=== PATIENT | female | born 1965 | race Caucasian/White ===

== ENCOUNTER 2018-10-15 10:34 | Inpatient (IN) ==
[2018-10-15] MEDS ORDERED: *HR* HYDROmorphone (PF) 1 MG/ML SYRINGE IVP ONE ×2 (10:49→11:58)
[2018-10-15 11:03] LABS: Basophils % 0.2 %; Hematocrit 28.5 % (35.3-44.9); Hemoglobin 9.3 g/dL (11.5-15.4); Immature Granulocytes % 1.9 % (0-4); Lymphocytes # 0.7 K/mcL (0.6-4.6); Lymphocytes % 5.1 %; Mean Corpuscular HGB Conc 32.6 g/dL (31.6-35.5); Mean Corpuscular Hemoglobin 33.1 pg (28.0-33.3); Mean Corpuscular Volume 101.4 fL (83.0-100.0); Monocytes % 6.6 %; Neutrophils # 12.4 K/mcL (1.6-8.9); Platelet Count 307 K/mcL (140-400); Red Blood Count 2.81 M/mcL (3.82-4.97); Red Cell Distribution Width 18.2 % (11.5-14.5); Segmented Neutrophils % 86.2 %
[2018-10-15] MEDS ORDERED: 0.9 % Sodium Chloride 1,000 ML IVC ONE (11:11)
[2018-10-15] MEDS ORDERED: 0.9 % Sodium Chloride 1,000 ML ONE (11:11)
--- NOTE | 2018-10-15 11:11 | Emergency Department Note ---
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 She last had chemo 2 weeks ago. She has not had any increased shortness of breath, abdominal pain, N/V/D but states her legs, pelvis, chest and arms have had increased pain. She denies fevers at home. She has not fallen or had any other trauma. She is currently undergoing chemotherapy without radiation and her last treatment was 12 days ago. She has been taking her home oxycodone without relief from the pain. She also relates that she has been having increased difficulty swallowing, with a globus sensation. Pain Scale: 10 - Related Data Home Medications Medication Instructions Recorded Confirmed Loratadine [Claritin] 10 mg PO DAILY 10/25/15 10/10/18 Acetaminophen [Tylenol] 1,000 mg PO Q6H PRN 07/21/18 10/10/18 Albuterol Neb [AccuNeb] 0.63 mg IH BID 07/21/18 10/10/18 Albuterol Sulfate [Proair Hfa] 2 puff IH Q4H PRN 07/21/18 10/10/18 Allopurinol [Zyloprim 300 MG] 300 mg PO DAILY 07/21/18 10/10/18 Cyclobenzaprine [Flexeril] 10 mg PO DAILY 07/21/18 10/10/18 Prochlorperazine Maleate 10 mg PO Q6H PRN 07/21/18 10/10/18 raNITIdine HCl [Zantac] 150 mg PO BID 07/21/18 10/10/18 Amitriptyline [Elavil] 10 mg PO HS 08/30/18 10/10/18 Gabapentin [Neurontin] 600 mg PO TID 08/30/18 10/10/18 Docusate Sodium [Dok] 100 mg PO DAILY 10/02/18 10/10/18 Guaifenesin [Mucinex] 600 mg PO BID 10/02/18 10/10/18 Omeprazole [PriLOSEC] 20 mg PO DAILY 10/02/18 10/10/18 Ondansetron HCl [Zofran] 4 mg PO Q6H PRN 10/02/18 10/10/18 Oxycodone HCl 15 mg PO TID 10/02/18 10/10/18 Primidone [Mysoline] 50 mg PO BID 10/02/18 10/10/18 Previous Rx's Medication Instructions Recorded Lidocaine/Prilocaine [Emla] 1 appl TP AD #30 gm 08/15/18 Magic Mouthwash [Magic Mouthwash 10 ml PO QID PRN #240 ml 09/25/18 BLM] Doxycycline 100 mg PO BID #10 capsule 10/03/18 Dronabinol [Marinol] 1 tab PO BID 30 Days #60 capsule 10/10/18 Allergies Allergy/AdvReac Type Severity Reaction Status Date / Time diphenhydramine Allergy Insomnia Verified 10/10/18 10:30 [From Benadryl] Penicillins Allergy Anaphylaxis Verified 10/10/18 10:30 atenolol AdvReac Cough Verified 10/10/18 10:30 bupropion [From Wellbutrin] AdvReac Nightmare Verified 10/10/18 10:30 cephalexin [From Keflex] AdvReac Diarrhea Verified 10/10/18 10:30 metronidazole [From Flagyl] AdvReac Diarrhea Verified 10/10/18 10:30 All systems ED: reviewed and negative except as stated. Review of Systems: As Per HPI Constitutional: Reports: chills, weakness. Denies: fever Eyes: Denies: vision change Cardiovascular: Reports: chest pain. Denies: palpitations, dyspnea on exertion, edema Respiratory: Denies: cough, dyspnea, wheezes Gastrointestinal: Denies: abdominal pain, nausea, vomiting, diarrhea, constipation Genitourinary: Denies: dysuria, hematuria Musculoskeletal: Reports: back pain, neck pain, arthralgia. Denies: joint swelling Integumentary: Denies: rash Neurological: Reports: headache, weakness. 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 Absent: scleral icterus, conjunctival injection - ENT ENT exam: mucous membranes dry - Neck Neck exam: Absent: tenderness, meningismus, lymphadenopathy - Chest Chest inspection: Present: normal inspection, symmetric chest wall rise. Absent: tenderness, rash - Respiratory Respiratory exam: Present: normal lung sounds bilaterally. Absent: wheezes, stridor - Cardiovascular Cardiovascular exam: Present: normal rhythm, tachycardia - Abdominal Exam Abdominal exam: Present: soft, Non-Tender. Absent: distention, guarding, rebound, rigidity - Extremities Exam Extremities exam: Present: normal inspection. Absent: pedal edema, joint swelling, calf tenderness - Neurological Exam Neurological exam: Present: alert, oriented X3 - Psychiatric Psychiatric exam: Present: flat affect - Skin Skin exam: Present: warm, dry, intact Course Vital Signs Temperature 100.0 F H 10/15/18 10:40 Pulse Rate 137 10/15/18 10:40 Respiratory Rate 10/15/18 10:40 Blood Pressure 106/81 10/15/18 10:40 O2 Sat by Pulse Oximetry 96 10/15/18 10:40 Temperature 100.7 F H 10/15/18 11:20 Pulse Rate 133 10/15/18 11:20 Respiratory Rate 10/15/18 10:40 Blood Pressure 106/81 10/15/18 10:40 O2 Sat by Pulse Oximetry 96 10/15/18 10:40 Oxygen Delivery Oxygen Delivery Room Air Medical Decision Making - [facility] Narrative Medical decision making narrative: This patient is a cancer patient with recent chemotherapy presenting with increased pain. We will pursue a septic workup and obtain an EKG, and give the patient a bolus of fluids and 1mg of Dilaudid. On review of past medical records she was admitted on Oct 02 for dehydration and pain secondary to chemo and had CT scans done at that time with improvement of liver and bone mets. She had some vocal cord thickening and thickening of the aryepiglottic folds seen on these scans as well and was complaining of difficulty swallowing at that time as well. 1320 - Pt has been given a liter of fluid and 2mg of Dilaudid for pain relief. Lab work and CXR are unremarkable. Pt admitted to hospitalist Dr. Owen for pain management and swallow evaluation. - Medical Records Medical records reviewed: Yes I reviewed the patient's medical records. - Lab Data Lab results reviewed: Yes I reviewed the patient's lab results. Result diagrams: 10/15/18 10:42 10/15/18 10:42 Lab Results 10/15/18 10/15/18 10/15/18 Range/Units 10:42 10:42 10:42 WBC 14.4 H D (4.3-11.1) K/mcL RBC 2.81 L (3.82-4.97) M/mcL Hgb 9.3 L (11.5-15.4) g/dL Hct 28.5 L (35.3-44.9) % MCV 101.4 H (83.0-100.0) fL MCH 33.1 (28.0-33.3) pg MCHC 32.6 (31.6-35.5) g/dL RDW 18.2 H (11.5-14.5) % Plt Count 307 (140-400) K/mcL MPV 9.0 L (9.4-12.4) fL Immature Gran % 1.9 (0-4) % Seg Neutrophils % 86.2 % Lymphocytes % 5.1 % Monocytes % 6.6 % Eosinophils % 0.0 % Basophils % 0.2 % Neutrophils # 12.4 H (1.6-8.9) K/mcL Lymphocytes # 0.7 (0.6-4.6) K/mcL Monocytes # 1.0 (0.0-1.3) K/mcL Eosinophils # 0.0 (0.0-0.6) K/mcL Basophils # 0.0 (0.0-0.2) K/mcL PT 13.2 H (9.4-12.1) Seconds INR 1.2 APTT 61.3 H (26.0-36.0) Seconds Sodium 132 L (136-145) mEq/L Potassium 4.0 (3.5-5.1) mEq/L Chloride 96 L (98-107) mEq/L Carbon Dioxide 27 (23-29) mEq/L BUN 11 (6-20) mg/dL Creatinine 0.41 L (0.60-1.20) mg/dL Est GFR ( Amer) > 60 (> 60) Est GFR (Non-Af Amer) > 60 (> 60) BUN/Creatinine Ratio 27 H (6-26) Glucose 129 H (70-105) mg/dL Calculated Osmolality 275 L (280-300) Lactic Acid (0.5-2.2) mmol/L Calcium 9.1 (8.6-10.3) mg/dL Phosphorus 2.5 L (2.7-4.5) mg/dL Magnesium 2.0 (1.6-2.6) mg/dL Total Bilirubin 0.4 (0.3-1.0) mg/dL Direct Bilirubin 0.1 (0.0-0.2) mg/dL Indirect Bilirubin 0.3 (0.0-1.2) mg/dL AST 24 (13-39) Units/L ALT 14 (7-52) Units/L Alkaline Phosphatase 196 H (34-104) Units/L Serum Total Protein 7.1 (6.4-8.9) g/dL Albumin 3.7 (3.5-5.7) g/dL Globulin 3.4 (2.4-3.5) g/dL Albumin/Globulin Ratio 1.1 (1.1-2.2) Urine Color (Yellow) Urine Clarity (Clear) Urine pH (5.0-8.0) pH Units Ur Specific [place] (1.010-1.025) Urine Protein (Neg-Trace) mg/dL Urine Glucose (UA) (Normal) mg/dL Urine Ketones (Negative) mg/dL Urine Blood (Negative) Urine Nitrite (Negative) Urine Bilirubin (Negative) Urine Urobilinogen (Normal) mg/dL Ur Leukocyte Esterase (Negative) Urine Microscopic RBC (0-3) per hpf Urine Microscopic WBC (0-3) per hpf Ur Squamous Epith Cells (None-Few) per lpf Urine Bacteria (None-Few) per hpf Hyaline Casts (None-Few) per lpf Ur Culture Indicated? (NO) 10/15/18 10/15/18 Range/Units 11:04 11:15 WBC (4.3-11.1) K/mcL RBC (3.82-4.97) M/mcL Hgb (11.5-15.4) g/dL Hct (35.3-44.9) % MCV (83.0-100.0) fL MCH (28.0-33.3) pg MCHC (31.6-35.5) g/dL RDW (11.5-14.5) % Plt Count (140-400) K/mcL MPV (9.4-12.4) fL Immature Gran % (0-4) % Seg Neutrophils % % Lymphocytes % % Monocytes % % Eosinophils % % Basophils % % Neutrophils # (1.6-8.9) K/mcL Lymphocytes # (0.6-4.6) K/mcL Monocytes # (0.0-1.3) K/mcL Eosinophils # (0.0-0.6) K/mcL Basophils # (0.0-0.2) K/mcL PT (9.4-12.1) Seconds INR APTT (26.0-36.0) Seconds Sodium (136-145) mEq/L Potassium (3.5-5.1) mEq/L Chloride (98-107) mEq/L Carbon Dioxide (23-29) mEq/L BUN (6-20) mg/dL Creatinine (0.60-1.20) mg/dL Est GFR ( Amer) (> 60) Est GFR (Non-Af Amer) (> 60) BUN/Creatinine Ratio (6-26) Glucose (70-105) mg/dL Calculated Osmolality (280-300) Lactic Acid 2.4 H (0.5-2.2) mmol/L Calcium (8.6-10.3) mg/dL Phosphorus (2.7-4.5) mg/dL Magnesium (1.6-2.6) mg/dL Total Bilirubin (0.3-1.0) mg/dL Direct Bilirubin (0.0-0.2) mg/dL Indirect Bilirubin (0.0-1.2) mg/dL AST (13-39) Units/L ALT (7-52) Units/L Alkaline Phosphatase (34-104) Units/L Serum Total Protein (6.4-8.9) g/dL Albumin (3.5-5.7) g/dL Globulin (2.4-3.5) g/dL Albumin/Globulin Ratio (1.1-2.2) Urine Color Dark Yellow (Yellow) Urine Clarity Cloudy A (Clear) Urine pH 6.5 (5.0-8.0) pH Units Ur Specific [place] 1.023 (1.010-1.025) Urine Protein 30 H (Neg-Trace) mg/dL Urine Glucose (UA) Normal (Normal) mg/dL Urine Ketones Negative (Negative) mg/dL Urine Blood Negative (Negative) Urine Nitrite Negative (Negative) Urine Bilirubin Small H (Negative) Urine Urobilinogen Normal (Normal) mg/dL Ur Leukocyte Esterase Negative (Negative) Urine Microscopic RBC 0-3 (0-3) per hpf Urine Microscopic WBC 5-15 H (0-3) per hpf Ur Squamous Epith Cells Many H (None-Few) per lpf Urine Bacteria Many H (None-Few) per hpf Hyaline Casts Few (None-Few) per lpf Ur Culture Indicated? NO (NO) - Radiology Data Radiology results reviewed: Yes I reviewed the patient's radiology results. - EKG Data EKG #1 EKG attestation: Yes I reviewed and interpreted this EKG. EKG results narrative: EKG obtained at 10:45 on 10/15/2018 Heart rate 138 bpm, AR interval 125, QRS duration 79, QT 339, QTC 514 Sinus tachycardia without any ST segment elevations or depressions. No signs of acute ischemia or arrhythmias. Unchanged from previous EKG dated 10/02/2018.
[2018-10-15 11:15] LABS: INR 1.2; Prothrombin Time 13.2 Seconds (9.4-12.1)
[2018-10-15 11:18] LABS: Activated Partial Thrombo Time 61.3 Seconds (26.0-36.0)
--- NOTE | 2018-10-15 11:21 | Emergency Department Note ---
Disposition Clinical Impression: Sepsis Qualifiers: Sepsis type: sepsis due to unspecified organism Qualified Code(s): A41.9 - Sepsis, unspecified organism Disposition: Admitted As Inpatient Forms: ED Satisfaction Letter General Adult HPI - General Chief complaint: ED Weakness Stated complaint: weakness Time Seen by Provider: 10/15/18 10:36 Source: patient, EMS Limitations: no limitations Nursing Notes Reviewed: Yes Vital Signs Reviewed: Yes - History of Present Illness HPI Narrative: Attestation note: Patient was seen with the emergency medicine resident/nurse prac titioner/physician medical assistant float/transitional resident/medical student: Dr. EVELIN DAHL I have personally performed a face to face evaluation on this patient. I have reviewed and agree with history and physical examination patient management and disposition. Briefly the salient points of the case are as follows: 53-year-old female 5 months ago diagnosed with lung cell carcinoma with metastases to the bones and liver over the past week increasingly more bone pain that is not ameliorated by her her normal pain medication dosage home. No recent trauma. She had some night sweats and felt weak but no shortness shortness breath or chest pain. Sheis a low-grade fever 100.0 tachycardic at 134 she looks weak and dry. Patient will be worked up for sepsis with IV fluids and pain management ant icipated disposition is admission. Providing 45 minutes critical care service this patient. Disposition pending Pain Scale: 10 - Related Data Home Medications Medication Instructions Recorded Confirmed Loratadine [Claritin] 10 mg PO DAILY 10/25/15 10/10/18 Acetaminophen [Tylenol] 1,000 mg PO Q6H PRN 07/21/18 10/10/18 Albuterol Neb [AccuNeb] 0.63 mg IH BID 07/21/18 10/10/18 Albuterol Sulfate [Proair Hfa] 2 puff IH Q4H PRN 07/21/18 10/10/18 Allopurinol [Zyloprim 300 MG] 300 mg PO DAILY 07/21/18 10/10/18 Cyclobenzaprine [Flexeril] 10 mg PO DAILY 07/21/18 10/10/18 Prochlorperazine Maleate 10 mg PO Q6H PRN 07/21/18 10/10/18 raNITIdine HCl [Zantac] 150 mg PO BID 07/21/18 10/10/18 Amitriptyline [Elavil] 10 mg PO HS 08/30/18 10/10/18 Gabapentin [Neurontin] 600 mg PO TID 08/30/18 10/10/18 Docusate Sodium [Dok] 100 mg PO DAILY 10/02/18 10/10/18 Guaifenesin [Mucinex] 600 mg PO BID 10/02/18 10/10/18 Omeprazole [PriLOSEC] 20 mg PO DAILY 10/02/18 10/10/18 Ondansetron HCl [Zofran] 4 mg PO Q6H PRN 10/02/18 10/10/18 Oxycodone HCl 15 mg PO TID 10/02/18 10/10/18 Primidone [Mysoline] 50 mg PO BID 10/02/18 10/10/18 Previous Rx's Medication Instructions Recorded Lidocaine/Prilocaine [Emla] 1 appl TP AD #30 gm 08/15/18 Magic Mouthwash [Magic Mouthwash 10 ml PO QID PRN #240 ml 09/25/18 BLM] Doxycycline 100 mg PO BID #10 capsule 10/03/18 Dronabinol [Marinol] 1 tab PO BID 30 Days #60 capsule 10/10/18 Allergies Allergy/AdvReac Type Severity Reaction Status Date / Time diphenhydramine Allergy Insomnia Verified 10/10/18 10:30 [From Benadryl] Penicillins Allergy Anaphylaxis Verified 10/10/18 10:30 atenolol AdvReac Cough Verified 10/10/18 10:30 bupropion [From Wellbutrin] AdvReac Nightmare Verified 10/10/18 10:30 cephalexin [From Keflex] AdvReac Diarrhea Verified 10/10/18 10:30 metronidazole [From Flagyl] AdvReac Diarrhea Verified 10/10/18 10:30 Past Medical History - Past Medical History Medical history: Reports: cancer, COPD, GERD, hypertension, other Surgical history: Reports: hysterectomy Psychiatric history: Reports: anxiety, depression 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 history - Social History Smoking Status: Current every day smoker Smokeless Tobacco Status: No Alcohol use: Reports: none Drug use: Reports: none Physical Exam - General Limitations: no limitations General appearance: alert Course Vital Signs Temperature 100.0 F H 10/15/18 10:40 Pulse Rate 137 10/15/18 10:40 Respiratory Rate 10/15/18 10:40 Blood Pressure 106/81 10/15/18 10:40 O2 Sat by Pulse Oximetry 10/15/18 10:40 Temperature 100.0 F H 10/15/18 10:40 Pulse Rate 137 10/15/18 10:40 Respiratory Rate 10/15/18 10:40 Blood Pressure 106/81 10/15/18 10:40 O2 Sat by Pulse Oximetry 10/15/18 10:40 Oxygen Delivery Oxygen Delivery Room Air Medical Decision Making - Lab Data Result diagrams: 10/15/18 10:42 Lab Results 10/15/18 Range/Units 10:42 WBC 14.4 H D (4.3-11.1) K/mcL RBC 2.81 L (3.82-4.97) M/mcL Hgb 9.3 L (11.5-15.4) g/dL Hct 28.5 L (35.3-44.9) % MCV 101.4 H (83.0-100.0) fL MCH 33.1 (28.0-33.3) pg MCHC 32.6 (31.6-35.5) g/dL RDW 18.2 H (11.5-14.5) % Plt Count 307 (140-400) K/mcL MPV 9.0 L (9.4-12.4) fL Immature Gran % 1.9 (0-4) % Seg Neutrophils % 86.2 % Lymphocytes % 5.1 % Monocytes % 6.6 % Eosinophils % 0.0 % Basophils % 0.2 % Neutrophils # 12.4 H (1.6-8.9) K/mcL Lymphocytes # 0.7 (0.6-4.6) K/mcL Monocytes # 1.0 (0.0-1.3) K/mcL Eosinophils # 0.0 (0.0-0.6) K/mcL Basophils # 0.0 (0.0-0.2) K/mcL
[2018-10-15 11:25] LABS: Alanine Aminotransferase 14 Units/L (7-52); Albumin 3.7 g/dL (3.5-5.7); Albumin/Globulin Ratio 1.1 (1.1-2.2); Alkaline Phosphatase 196 Units/L (34-104); Aspartate Amino Transferase 24 Units/L (13-39); BUN/Creatinine Ratio 27 (6-26); Bilirubin,Direct 0.1 mg/dL (0.0-0.2); Bilirubin,Indirect 0.3 mg/dL (0.0-1.2); Bilirubin,Total 0.4 mg/dL (0.3-1.0); Blood Urea Nitrogen 11 mg/dL (6-20); Calcium 9.1 mg/dL (8.6-10.3); Carbon Dioxide 27 mEq/L (23-29); Chloride 96 mEq/L (98-107); Globulin 3.4 g/dL (2.4-3.5); Glucose 129 mg/dL (70-105); Osmolality,Calculated 275 (280-300); Phosphorous 2.5 mg/dL (2.7-4.5); Sodium 132 mEq/L (136-145); Total Protein 7.1 g/dL (6.4-8.9); eGFR For Non-African Americans > 60 (> 60)
[2018-10-15 11:34] LABS: Bilirubin,Urine Small (Negative); Blood,Urine Negative (Negative); Clarity,Urine Cloudy (Clear); Color,Urine Dark Yellow (Yellow); Glucose,Urine (UA) Normal (Normal); Ketones,Urine Negative (Negative); Leukocyte Esterase,Urine Negative (Negative); Nitrite,Urine Negative (Negative); PH,Urine 6.5 pH Units (5.0-8.0); Protein,Urine 30 mg/dL (Neg-Trace); Specific Gravity,Urine 1.023 (1.010-1.025); Urobilinogen,Urine Normal (Normal)
[2018-10-15 11:36] LABS: Bacteria,Urine Many per hpf (None-Few); Hyaline Casts,Urine Few per lpf (None-Few); RBC,Urine 0-3 per hpf (0-3); Squamous Epithelial Cell,Urine Many per lpf (None-Few)
[2018-10-15] MEDS ORDERED: Naloxone 0.4 MG/ML INJ IVP PRN (13:57)
[2018-10-15] MEDS ORDERED: Acetaminophen 325 MG TABLET PO PRN (13:57)
[2018-10-15] MEDS ORDERED: Ondansetron 4 MG/2 ML VIAL IVP PRN (14:03)
[2018-10-15] MEDS ORDERED: *HR* HYDROmorphone 2 MG TABLET PO PRN (14:04)
--- NOTE | 2018-10-15 14:12 | Internal Med History&Physical ---
Date of Encounter: 10/15/18 Time of Encounter: 14:10 Internal Medicine - H&P: HPI Admitted From: Home Plans for Post Hospital Care: Home History of present illness: Ms. 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 She last had chemo 2 weeks ago. She has not had any increased shortness of breath, abdominal pain, N/V/D but states her legs, pelvis, chest and arms have had increased pain. She denies fevers at home. She has not fallen or had any other trauma. She is currently undergoing chemotherapy without radiation and her last treatment was 12 days ago. She has been taking her home oxycodone without relief from the pain. She also relates that she has been having increased difficulty swallowing, with a globus sensation. At the ED, she was febrile with temp at 100.7, Labs showed anemia and elevated wbc, and lactic acid. CXR has no acute changes. Due to intractable pain and concern for underlying infection, pt will be admitted for further evaluation and management. Code status discussed with pt and family, they wish full code. Past Med Surg Social Fam HX - Past Medical History Medical history: cancer, COPD, GERD, hypertension, other Additional medical history: Epilepsy Psychiatric history: anxiety, depression - Past Surgical History Surgical History: hysterectomy Additional surgical history: nose reconstruction, tubal ligation - Social History Smoking Status: Current every day smoker Smokeless Tobacco Status: No Alcohol use: none Drug use: none - Family History Mother Living Status: Still Living Hx Family Cardiac Disorders: Yes Hx Family Respiratory Disorders: Yes Hx Family Cancer: Yes (breast) Hx Family Endocrine Disorder: Yes Hx Family Neurologic Disorders: No Father Living Status: Hx Family Cancer: Yes (lung) Internal Medicine - H&P: Meds Loratadine [Claritin] 10 mg PO DAILY 10/25/15 [History] Acetaminophen [Tylenol] 1,000 mg PO Q6H PRN 07/21/18 [History] Albuterol Neb [AccuNeb] 0.63 mg IH BID 07/21/18 [History] Albuterol Sulfate [Proair Hfa] 2 puff IH Q4H PRN 07/21/18 [History] Allopurinol [Zyloprim 300 MG] 300 mg PO DAILY 07/21/18 [History] Cyclobenzaprine [Flexeril] 10 mg PO DAILY 07/21/18 [History] Prochlorperazine Maleate 10 mg PO Q6H PRN 07/21/18 [History] raNITIdine HCl [Zantac] 150 mg PO BID 07/21/18 [History] Lidocaine/Prilocaine [Emla] 1 appl TP AD #30 gm 08/15/18 [Rx] Amitriptyline [Elavil] 10 mg PO HS 08/30/18 [History] Gabapentin [Neurontin] 600 mg PO TID 08/30/18 [History] Magic Mouthwash [Magic Mouthwash BLM] 10 ml PO QID PRN #240 ml 09/25/18 [Rx] Docusate Sodium [Dok] 100 mg PO DAILY 10/02/18 [History] Guaifenesin [Mucinex] 600 mg PO BID 10/02/18 [History] Omeprazole [PriLOSEC] 20 mg PO DAILY 10/02/18 [History] Ondansetron HCl [Zofran] 4 mg PO Q6H PRN 10/02/18 [History] Oxycodone HCl 15 mg PO TID 10/02/18 [History] Primidone [Mysoline] 50 mg PO BID 10/02/18 [History] Doxycycline 100 mg PO BID #10 capsule 10/03/18 [Rx] Dronabinol [Marinol] 1 tab PO BID 30 Days #60 capsule 10/10/18 [Rx] Allergy/AdvReac Type Severity Reaction Status Date / Time diphenhydramine Allergy Insomnia Verified 10/10/18 10:30 [From Benadryl] Penicillins Allergy Anaphylaxis Verified 10/10/18 10:30 atenolol AdvReac Cough Verified 10/10/18 10:30 bupropion [From Wellbutrin] AdvReac Nightmare Verified 10/10/18 10:30 cephalexin [From Keflex] AdvReac Diarrhea Verified 10/10/18 10:30 metronidazole [From Flagyl] AdvReac Diarrhea Verified 10/10/18 10:30 All Systems PM: A 10-system review of systems was performed and is negative for pertinent findings except as documented above in the HPI. Review of systems: REVIEW OF SYSTEMS: CONSTITUTIONAL: see HPI. HEENT: Eyes: No visual loss, blurred vision, double vision or yellow sclerae. Ears, Nose, Throat: No hearing loss, sneezing, congestion, runny nose or sore throat. SKIN: No rash or itching. CARDIOVASCULAR: No chest pain, chest pressure or chest discomfort. No palpitations or edema. RESPIRATORY: No shortness of breath, cough or sputum. GASTROINTESTINAL: positive for anorexia, nausea, vomiting. No abdominal pain or blood, see HPI. GENITOURINARY: No dysuria, urgency, or frequency. NEUROLOGICAL: No headache, dizziness, syncope, paralysis, ataxia, numbness or tingling in the extremities. No change in bowel or bladder control. MUSCULOSKELETAL: see HPI. HEMATOLOGIC: No anemia, bleeding or bruising. LYMPHATICS: No enlarged nodes. No history of splenectomy. PSYCHIATRIC: No history of depression or anxiety. ENDOCRINOLOGIC: No reports of sweating, cold or heat intolerance. No polyuria or polydipsia. - Constitutional Vitals: Temp Pulse Resp BP Pulse Ox 100.7 F H 133 19 106/81 96 10/15/18 11:20 10/15/18 11:20 10/15/18 10:40 10/15/18 10:40 10/15/18 10:40 General appearance: Present: cooperative, A&O X 3, answers questions appropriately Exam: PHYSICAL EXAMINATION: GENERAL APPEARANCE: The patient is alert, oriented and in no acute distress. HEENT: Head is normocephalic. The sinuses are nontender. Pupils are equal and reactive. The nares are patent. Oropharynx clear without lesions. NECK: Supple without lymphadenopathy. HEART: Regular rate and rhythm. LUNGS: No crackles or wheezes are heard. ABDOMEN: Soft, nontender, nondistended with good bowel sounds heard. Inguinal area is normal. EXTREMITIES: Without cyanosis, clubbing or edema. NEUROLOGICAL: Gross nonfocal. SKIN: Warm and dry without any rash. Internal Med - H&P Results - Labs CBC & Chem 7: 10/15/18 10:42 10/15/18 10:42 Labs: Short CBC 10/15/18 Range/Units 10:42 WBC 14.4 H D (4.3-11.1) K/mcL Hgb 9.3 L (11.5-15.4) g/dL Hct 28.5 L (35.3-44.9) % Plt Count 307 (140-400) K/mcL Neutrophils # 12.4 H (1.6-8.9) K/mcL BMP 10/15/18 10:42 Sodium 132 L Potassium 4.0 Chloride 96 L Carbon Dioxide 27 BUN 11 Creatinine 0.41 L Glucose 129 H Calcium 9.1 Liver Function 10/15/18 Range/Units 10:42 Total Bilirubin 0.4 (0.3-1.0) mg/dL Direct Bilirubin 0.1 (0.0-0.2) mg/dL AST 24 (13-39) Units/L ALT 14 (7-52) Units/L Alkaline Phosphatase 196 H (34-104) Units/L Albumin 3.7 (3.5-5.7) g/dL Urine 10/15/18 Range/Units 11:15 Urine Color Dark Yellow (Yellow) Urine Clarity Cloudy A (Clear) Urine pH 6.5 (5.0-8.0) pH Units Ur Specific [place] 1.023 (1.010-1.025) Urine Protein 30 H (Neg-Trace) mg/dL Urine Glucose (UA) Normal (Normal) mg/dL - Impressions ITS Impressions Chest X-Ray 10/15/18 11:21 IMPRESSION: No acute abnormality. D/ / Quincy Howard MD / Quincy Howard MD Interpreting Provider: Quincy Howard MD - Assessment and plan (1) Small cell lung cancer Current Visit: No Status: Acute Assessment and plan: 53 year old female with end stage small cell lung cancer diagnosed about 5 months ago, already undertaken 5 rounds of chemo, presented with intractable pain, weakness, and disphargia. - With known metastasis to bone, cervical lymph nodes, and liver. Prognosis is poor. - Will consult palliative care and oncology. - supportive care and pain control. - PT/OT (2) Fever of unknown origin Current Visit: Yes Status: Acute Assessment and plan: Pt is not neutropenic, but received chemo about 12 days ago. Blood cx send. CXR no pneumonia, Pt hs no GI or symptoms. start braod-spectrum abx. (3) Dysphagia Current Visit: Yes Status: Acute Assessment and plan: With known cervical lymph nodes metastasis, unclear there is esophageal metastasis or not. May need imaging study. Discussed with patient and family about PEG placement but they are debating. Continue IVF, soft diet, aspiration precaution. Qualifiers: Dysphagia type: oropharyngeal phase Qualified Code(s): R13.12 - Dysphagia, oropharyngeal phase (4) Intractable pain Current Visit: Yes Status: Acute Assessment and plan: Started on dilaudid oral. (5) DVT prophylaxis Current Visit: Yes Status: Acute Assessment and plan: Heparin sq. - Time Spent With Patient Total time spent is greater than 50% in coordination of care (as documented) at patient's floor/unit and/or counseling patient: Greater than 35 minutes
[2018-10-15] MEDS ORDERED: NON-FORMULARY MEDICATION 1 EACH EACH (Magic Mouthwash [Magic Mouthwash Blm] 10 ML) PO PRN (14:47)
[2018-10-15] MEDS ORDERED: Magic Mouthwash 10 ML UD Cup PO PRN (14:57)
--- NOTE | 2018-10-15 15:34 | Palliative - Consult Note ---
Date of Encounter: 10/15/18 Time of Encounter: 15:30 - Assessment and Plan (1) Cancer associated pain Current Visit: No Status: Acute Assessment and plan: She was utilizing Oxycodone 15mg at home "several times a day", and patient states she was not getting any relief. She had received IV Hydromorphone in the ED with some relief, and was ordered po Hydromorphone upon arrival to floor every 6 hours PRN. She will likely need the frequency increased. Will alter dose to 2mg mod pain and 4mg for severe pain and allow every 2 hours PRN. Will re-eval in am. She was given Zometa 09/25 at [facility] - patient states that she did not get any relief with this, and actually pain has worsened. Possible decadron may assist in comfort, however, will await oncology evaluation and see if they have other recommendations. (2) Dysphagia Current Visit: Yes Status: Acute Assessment and plan: Speech at bedside - will be ordering MBS for tomorrow. Qualifiers: Dysphagia type: oropharyngeal phase Qualified Code(s): R13.12 - Dysphagia, oropharyngeal phase (3) Goals of care, counseling/discussion Current Visit: No Status: Acute Assessment and plan: Patient very uncomfortable and states she is exhausted from ER experience and desires to rest. Will attempt goals of care discussion at a later date, as she has already had one conversation with the ED physician, and appears exhausted. Also would like to see if oncology has any input that would affect this discussion. She had previously completed POA with her son as primary agent. She may want to alter this document and will be discussing with her sister odalys Patrick at bedside. Will f/u in am. (4) Fever of unknown origin Current Visit: Yes Status: Acute (5) Small cell lung cancer Current Visit: No Status: Acute Palliative-CN HPI - Data of Consult Patient: known to practice within the last 3 years Consult date: 10/15/18 Requesting Physician: Michael Lazcano MD Primary Care Provider: PCP NONE - Consult Narrative Palliative Care/Comfort Measures: Palliative care History of present illness: Ms. Youngblood is a 53 year old female known to the palliative care team from a previous visit, who presented to the hospital with c/o increased pain. She has history of metastatic SCLC and has been under care and treatment with Dr. Mcgee at the [facility], with her last chemo approx 2 weeks ago. States the next steps were to get an MRI of bilateral hips and "go from there". She also has been having increased difficulty with swallowing which she states is getting worse. Her sister odalys bolivar at bedside, states she has been putting things in her mouth and spitting them out because it was getting her choked. Upon evaluation, she was febrile with temp 100.7. WBC 14.4, Hgb 9.3. CXR with no acute change. Palliative care was consulted to assist with symptom management and goals of care discussion. Upon my visit, sister odalys Patrick is at bedside, and speech therapy and lab present in room. Patient states she is exhausted and just wants to rest, but agreeable to speak with me briefly. States that her Oxycodone is no longer working for her pain and she is miserable. She appears dusky, although saturations in 90's on 2L NC. State lives with mother, and no home care services involved. Utilizes no DME's at this time. CC: Michael Lazcano MD - Time Spent with Patient Time: Total time spent is greater than 50% in coordination of care (as documented) at patient's floor/unit and/or counseling patient: Time with patient: 45 minutes Past Med Surg Social Fam HX - Past Medical History Medical history: cancer, COPD, GERD, hypertension, other Additional medical history: Epilepsy Psychiatric history: anxiety, depression - Past Surgical History Surgical History: hysterectomy Additional surgical history: nose reconstruction, tubal ligation - Social History Smoking Status: Current every day smoker Smokeless Tobacco Status: No Alcohol use: none Drug use: none - Family History Mother Living Status: Still Living Hx Family Cardiac Disorders: Yes Hx Family Respiratory Disorders: Yes Hx Family Cancer: Yes (breast) Hx Family Endocrine Disorder: Yes Hx Family Neurologic Disorders: No Father Living Status: Hx Family Cancer: Yes (lung) Medications and Allergies Loratadine [Claritin] 10 mg PO DAILY 10/25/15 [History] Acetaminophen [Tylenol] 1,000 mg PO Q6H PRN 07/21/18 [History] Albuterol Neb [AccuNeb] 0.63 mg IH BID PRN 07/21/18 [History] Albuterol Sulfate [Proair Hfa] 2 puff IH Q4H PRN 07/21/18 [History] Allopurinol [Zyloprim 300 MG] 300 mg PO DAILY 07/21/18 [History] Cyclobenzaprine [Flexeril] 10 mg PO DAILY PRN 07/21/18 [History] Prochlorperazine Maleate 10 mg PO Q6H PRN 07/21/18 [History] raNITIdine HCl [Zantac] 150 mg PO 0730,1630 07/21/18 [History] Amitriptyline [Elavil] 10 mg PO HS 08/30/18 [History] Gabapentin [Neurontin] 600 mg PO TID 08/30/18 [History] Magic Mouthwash [Magic Mouthwash BLM] 10 ml PO QID PRN #240 ml 09/25/18 [Rx] Docusate Sodium [Dok] 100 mg PO DAILY 10/02/18 [History] Guaifenesin [Mucinex] 600 mg PO BID 10/02/18 [History] Omeprazole [PriLOSEC] 20 mg PO DAILY@0730 10/02/18 [History] Ondansetron HCl [Zofran] 4 mg PO Q6H PRN 10/02/18 [History] Oxycodone HCl 15 mg PO TID PRN 10/02/18 [History] Primidone [Mysoline] 50 mg PO BID 10/02/18 [History] Dronabinol [Marinol] 1 tab PO BID 30 Days #60 capsule 10/10/18 [Rx] Carvedilol [Coreg] 25 mg PO BIDWM 10/15/18 [History] Lidocaine/Prilocaine [Emla] 1 appl TP AD PRN 10/15/18 [History] Allergy/AdvReac Type Severity Reaction Status Date / Time Penicillins Allergy Anaphylaxis Verified 10/10/18 10:30 atenolol AdvReac Cough Verified 10/10/18 10:30 bupropion [From Wellbutrin] AdvReac Nightmare Verified 10/10/18 10:30 cephalexin [From Keflex] AdvReac Diarrhea Verified 10/10/18 10:30 diphenhydramine AdvReac Insomnia Verified 10/15/18 14:54 [From Benadryl] metronidazole [From Flagyl] AdvReac Diarrhea Verified 10/10/18 10:30 All systems: reviewed and no additional remarkable complaints except as stated (dysphagia, pain to bilateral shoulders, hips, groins, back, generalized weakness, shortness of breath) Palliative Care-Exam - Constitutional Vitals: Temp Pulse Resp BP Pulse Ox 101.4 F H 129 19 103/69 99 10/15/18 15:06 10/15/18 15:06 10/15/18 15:06 10/15/18 15:06 10/15/18 15:06 General appearance: Present: mild distress - Head Head Exam: Present: normal inspection, normocephalic - ENT Additional comments: Nose/ears with cyanosis - Respiratory Respiratory exam: Present: decreased breath sounds - Cardiovascular Cardiovascular exam: Present: +S1, +S2, tachycardia - GI/Abdominal Exam GI/Abdominal exam: Present: diminished bowel sounds, soft - Extremities Exam Extremities exam: Present: normal capillary refill, normal inspection - Neurological Exam Neurological exam: Present: alert, oriented X3, strengths equal and symetr throughout - Skin Skin exam: Present: dry Additional comments: Cyanosis/dusky appearance noted to ears/nose Internal Medicine - CN: Reslt - Labs CBC & Chem 7: 10/15/18 10:42 10/15/18 10:42 Labs: Short CBC 10/15/18 Range/Units 10:42 WBC 14.4 H D (4.3-11.1) K/mcL Hgb 9.3 L (11.5-15.4) g/dL Hct 28.5 L (35.3-44.9) % Plt Count 307 (140-400) K/mcL Neutrophils # 12.4 H (1.6-8.9) K/mcL BMP 10/15/18 10:42 Sodium 132 L Potassium 4.0 Chloride 96 L Carbon Dioxide 27 BUN 11 Creatinine 0.41 L Glucose 129 H Calcium 9.1 Liver Function 10/15/18 Range/Units 10:42 Total Bilirubin 0.4 (0.3-1.0) mg/dL Direct Bilirubin 0.1 (0.0-0.2) mg/dL AST 24 (13-39) Units/L ALT 14 (7-52) Units/L Alkaline Phosphatase 196 H (34-104) Units/L Albumin 3.7 (3.5-5.7) g/dL Urine 10/15/18 Range/Units 11:15 Urine Color Dark Yellow (Yellow) Urine Clarity Cloudy A (Clear) Urine pH 6.5 (5.0-8.0) pH Units Ur Specific [place] 1.023 (1.010-1.025) Urine Protein 30 H (Neg-Trace) mg/dL Urine Glucose (UA) Normal (Normal) mg/dL - ABG Interpretation ABG results: PT/INR, D-dimer PT 13.2 Seconds (9.4-12.1) H 10/15/18 10:42 - Impressions Impressions Chest X-Ray 10/15/18 11:21 IMPRESSION: No acute abnormality. D/ / Quincy Howard MD / Quincy Howard MD Interpreting Provider: Quincy Howard MD Consult Discharge Plan - Plan Referrals: NONE,PCP [Primary Care Provider] - Palliative Quality Palliative Quality: Screen for Code Status: No (Will eval in am, patient in pain crisis, unable to discuss presently), Screen for Goals of Care: No, Screen for Pain: Yes, If Pain Regimen Started, Initiate Bowel Regimen: Yes, Screen for Nausea/Vomitting: Yes Code Status: 10/15/18 13:57 Resuscitation Status: Active [RES] Routine Comment: Resuscitation Status: Full Code
[2018-10-15] MEDS: Gabapentin 300 MG CAPSULE PO SCH ×2 (15:38→21:04)
[2018-10-15] MEDS: Cefepime HCl 2,000 MG in Water for inj. (sterile) 20 ML 20 ML IVP SCH ×2 (15:39→21:05)
[2018-10-15] MEDS: Levofloxacin 750 MG/150 ML 750 MG/150 ML BAG IVPB SCH (15:40)
[2018-10-15] MEDS: D5% in 0.2% NACL w KCl 1,000 ML IVC SCH (16:13)
[2018-10-15] MEDS ORDERED: Gadolinium Contrast Agent (WT Based) IV PRN (16:45)
--- NOTE | 2018-10-15 16:58 | Oncology Inp Consult Note ---
<Sofi Baldwin - Last Filed: 10/15/18 17:40> Date of Encounter: 10/15/18 Time of Encounter: 16:53 Assessment and Plan (1) Cancer associated pain Status: Acute Assessment and plan: known bony metastases palliative care on board, appreciate recommendations dilaudid dose increased from admission (home oxy 15 mg TID) see what patient is requiring to manage pain for 24 hours and medications can be adjusted consider decadron if pain is not adequately reduced with dilaudid MRI pelvis w/wo contrast ordered (2) Fever Status: Acute Assessment and plan: source unknown peripheral blood culture drawn in ER cefepime and levaquin started check port blood culture check RIP Qualifiers: Fever type: unspecified Qualified Code(s): R50.9 - Fever, unspecified (3) Dysphagia Status: Acute Assessment and plan: speech therapy has assessed patient - okay for diet with no straws and to use double swallow technique with solids modified barium swallow ordered for tomorrow AM Qualifiers: Dysphagia type: oropharyngeal phase Qualified Code(s): R13.12 - Dysphagia, oropharyngeal phase (4) Small cell lung cancer Status: Acute Assessment and plan: Treatment Intent: Palliative Number of cycles: 5-6 Cycle repeated every 3 weeks Carboplatin AUC 5 day 1 (creatinine clearance around 65) Etoposide 60 mg/m IV day 1-3 (increased to 80 mg/m from cycle 2) Atezolizumab 1200 mg IV day 1 (from cycle 2) Neulasta 6 mg subcutaneous day 4. (Decreased to 3 mg subcutaneous from cycle 3 due to bone pain Cycle 1 on 07/23/2018 4 on 09/25/2018. After 4 cycles she was hospitalized with fatigue and dehydration. Improved with conservative measures. She had CT neck and chest abdomen and pelvis with IV contrast and MRI brain in the hospital Overall it showed reduction in the liver lesions and sclerotic bone metastases which may indicate response. Mediastinal adenopathy which is bulky stable compact August 2018 but has shown improvement since July 2018 We will give her at least one more cycle as she has residual disease especially bulky mediastinal adenopathy. After that may consider radiation to the mediastinum We will also send her to radiation oncology to discuss PCI Supportive medication for bone metastasis Re: Bone metastasis could try bisphosphonates. For small cell lung cancer given the aggressive nature adding Zometa may not help much. Zometa 4 mg IV day 1-3 weeks start 09/25/2017 (5) Metastatic cancer Status: Acute - Data of Consult Patient: known to practice within the last 3 years Consult date: 10/15/18 Requesting Physician: Michael Lazcano MD Primary Care Provider: PCP NONE - Consult Narrative Reason for consult: chemo patient/cancer pain History of present illness: 53 yo female currently undergoing palliative chemotherapy for extensive metastatic small cell carcinoma admitted for increased bone pain. She has had increasing pain for the past 5 days that has not been relieved by her home oxycodone 15 mg. She also has difficulty swallowing, which has been going on for several months but is worse when she feels ill. She was noted to be tachycardic with a fever in the ER. Past Med Surg Social Fam HX - Past Medical History Medical history: cancer, COPD, GERD, hypertension, other Additional medical history: Epilepsy Psychiatric history: anxiety, depression - Past Surgical History Surgical History: hysterectomy Additional surgical history: nose reconstruction, tubal ligation - Social History Smoking Status: Current every day smoker Smokeless Tobacco Status: No Alcohol use: none Drug use: none - Family History Father Living Status: Hx Family Cancer: Yes (lung) Mother Living Status: Still Living Hx Family Cardiac Disorders: Yes Hx Family Respiratory Disorders: Yes Hx Family Cancer: Yes (breast) Hx Family Endocrine Disorder: Yes Hx Family Neurologic Disorders: No Medications and Allergies RX: Loratadine [Claritin] 10 mg PO DAILY 10/25/15 [History] RX: Acetaminophen [Tylenol] 1,000 mg PO Q6H PRN 07/21/18 [History] RX: Albuterol Neb [AccuNeb] 0.63 mg IH BID PRN 07/21/18 [History] RX: Albuterol Sulfate [Proair Hfa] 2 puff IH Q4H PRN 07/21/18 [History] RX: Cyclobenzaprine [Flexeril] 10 mg PO DAILY PRN 07/21/18 [History] RX: Prochlorperazine Maleate 10 mg PO Q6H PRN 07/21/18 [History] RX: raNITIdine HCl [Zantac] 150 mg PO 0730,1630 07/21/18 [History] RX: Amitriptyline [Elavil] 10 mg PO HS 08/30/18 [History] RX: Gabapentin [Neurontin] 600 mg PO TID 08/30/18 [History] RX: Magic Mouthwash [Magic Mouthwash BLM] 10 ml PO QID PRN #240 ml 09/25/18 [Rx] RX: Docusate Sodium [Dok] 100 mg PO DAILY 10/02/18 [History] RX: Guaifenesin [Mucinex] 600 mg PO BID 10/02/18 [History] RX: Omeprazole [PriLOSEC] 20 mg PO DAILY@0730 10/02/18 [History] RX: Ondansetron HCl [Zofran] 4 mg PO Q6H PRN 10/02/18 [History] RX: Oxycodone HCl 15 mg PO TID PRN 10/02/18 [History] RX: Primidone [Mysoline] 50 mg PO BID 10/02/18 [History] Dronabinol [Marinol] 1 tab PO BID 30 Days #60 capsule 10/10/18 [Rx] RX: Lidocaine/Prilocaine [Emla] 1 appl TP AD PRN 10/15/18 [History] Allergy/AdvReac Type Severity Reaction Status Date / Time Penicillins Allergy Anaphylaxis Verified 10/10/18 10:30 atenolol AdvReac Cough Verified 10/10/18 10:30 bupropion [From Wellbutrin] AdvReac Nightmare Verified 10/10/18 10:30 cephalexin [From Keflex] AdvReac Diarrhea Verified 10/10/18 10:30 diphenhydramine AdvReac Insomnia Verified 10/15/18 14:54 [From Benadryl] metronidazole [From Flagyl] AdvReac Diarrhea Verified 10/10/18 10:30 Constitutional: Present: fatigue, malaise, weakness Eyes: Absent: change in vision Nose, mouth and throat: Present: dysphagia Cardiovascular: Absent: chest pain Respiratory: Present: cough, dyspnea Gastrointestinal: Present: dysphagia Musculoskeletal: Present: arthralgias, radiating pain into limb Integumentary: Present: change in hair Neurological: Absent: abnormal speech Oncology - Exam - Constitutional Exam: General: alert, no acute distress HEENT: atraumatic, normocephalic, external ears normal, PEERLA EOMI, neck supple, trachea midline Heart: RRR Lungs: CTA Abdomen: soft, nontender Extremities: no edema Vascular: posterior tibial pulses 2/4 and equal Skin: warm, dry, intact Neuro: A&Ox3, no focal deficits Psych: normal affect Consult Discharge Plan - Plan Referrals: NONE,PCP [Primary Care Provider] - Inpatient Charges Provider: Dr. Tawana Mcgee <Sharon Mcgee S - Last Filed: 10/16/18 17:11> Date of Encounter: 10/15/18 - Data of Consult Requesting Physician: Michael Lazcano MD Primary Care Provider: PCP NONE Inpatient Charges Provider: Dr. Tawana Mcgee Consult - Inpatient: [id number] - Attending Attestation I examined this patient and my medical decision-making was reviewed with Sofi Lang. I agree with the documented findings, disposition and treatment plan as described except to the extent set forth below. 1. Extensive stage small cell lung cancer. She completed 4 cycles of carboplatin and etoposide with immunotherapy Atezolizumab from cycle 2. She was hospitalized earlier this month and she had the following workup. She had a MRI brain with and without contrast 10/02/2018 was negative for metastasis. Chronic white matter ischemic changes CT neck and chest and abdomen with IV contrast on 10/02/2018 showed thickening of the left aryepiglottic fold. Asymmetric vocal cards with thickening of right vocal cord small hypodensity. CT chest showed unchanged mediastinal bulky adenopathy compared to August 2018. Significant improvement in the liver metastasis. Also diffuse sclerotic metastasis in the skeleton which may indicate treatment response Her mediastinal bulky adenopathy has improved significantly since start of treatment but she still has persistent lymphadenopathy. So the plan is to give one more chemotherapy cycle and reevaluate and consider consolidative radiation to the thorax. Following that would consider her for PCI 2. She has bony metastasis receiving Zometa 3. She is hospitalized with significant pain in the lower back radiating towards right pelvis and bilateral shoulders. We will evaluate that with MRI of pelvis. If she has significant bone disease may consider palliative radiation to that as well. She is on IV Dilaudid every 2 hours with reasonable pain control 4. Mild anemia hemoglobin 9.3. This is secondary to chemotherapy. B12 folate TSH and iron levels have been normal Palliative care involved
[2018-10-15] MEDS: *HR* HYDROmorphone 2 MG TABLET PO PRN ×4 (17:14→23:55)
[2018-10-15] MEDS: *HR* Heparin 5,000 UNIT/ML VIAL SQ SCH (17:14)
[2018-10-15] MEDS ORDERED: Meropenem 1,000 MG in 0.9 % Sodium Chloride Mini Bag 100 ML IVPB SCH (18:00)
[2018-10-15 18:29] LABS: Adenovirus Not Detected (Not Detect); Bordetella Pertussis Not Detected (Not Detect); Chlamydophila pneumoniae Not Detected (Not Detect); Coronavirus 229E Not Detected (Not Detect); Coronavirus HKU1 Not Detected (Not Detect); Coronavirus NL63 Not Detected (Not Detect); Coronavirus OC43 Not Detected (Not Detect); Human Metapneumovirus Not Detected (Not Detect); Human Rhinovirus/Enterovirus Not Detected (Not Detect); Influenza A Subtype 2009 H1 Not Detected (Not Detect); Influenza A Untypeable Not Detected (Not Detect); Influenza B Not Detected (Not Detect); Mycoplasma pneumoniae Not Detected (Not Detect); Parainfluenza Virus 1 Not Detected (Not Detect); Parainfluenza Virus 2 Not Detected (Not Detect); Parainfluenza Virus 3 Not Detected (Not Detect); Parainfluenza Virus 4 Not Detected (Not Detect); Respiratory Syncytial Virus Not Detected (Not Detect)
[2018-10-15] MEDS ORDERED: *HR* LORazepam 1 MG TABLET PO ONE (18:39)
[2018-10-15] MEDS ORDERED: diazePAM 10 MG/2 ML SYRINGE IVP PRN (19:10)
[2018-10-15] MEDS: Primidone 50 MG TABLET PO SCH (21:05)
[2018-10-16] MEDS: *HR* HYDROmorphone 2 MG TABLET PO PRN ×4 (02:23→11:13)
--- NOTE | 2018-10-16 02:41 | Event Note ---
Date of Encounter: 10/16/18 Time of Encounter: 01:02 Notified by nurse of patient heart elevated in 120-130's. Ordered EKG, sinus tachycardia with similar changes seen on previous EKG. Upon further chart review heart rate has been elevated similarly since admission and discussed with patient family at bedside who states her heart rate has been in 120's-140's last several weeks. Assessed patient at bedside, continues to be oriented but is also very weak, but denies any new chest pain or shortness of breath. Is full code at this time but it is also denying wanting any further cardiac workup at this time. Reviewed patient and EKG's with Dr Rubio, will not initiate any further work up at this time.
[2018-10-16] MEDS: *HR* Heparin 5,000 UNIT/ML VIAL SQ SCH ×2 (05:12→17:32)
[2018-10-16] MEDS: Cefepime HCl 2,000 MG in Water for inj. (sterile) 20 ML 20 ML IVP SCH ×3 (05:12→22:15)
[2018-10-16 05:39] LABS: Basophils % 0.2 %; Eosinophils % 0.1 %; Hematocrit 26.6 % (35.3-44.9); Hemoglobin 8.6 g/dL (11.5-15.4); Immature Granulocytes % 2.5 % (0-4); Lymphocytes # 0.9 K/mcL (0.6-4.6); Lymphocytes % 6.2 %; Mean Corpuscular HGB Conc 32.3 g/dL (31.6-35.5); Mean Corpuscular Hemoglobin 33.3 pg (28.0-33.3); Mean Corpuscular Volume 103.1 fL (83.0-100.0); Mean Platelet Volume 9.2 fL (9.4-12.4); Monocytes # 0.9 K/mcL (0.0-1.3); Monocytes % 6.6 %; Neutrophils # 11.6 K/mcL (1.6-8.9); Platelet Count 302 K/mcL (140-400); Red Blood Count 2.58 M/mcL (3.82-4.97); Red Cell Distribution Width 18.3 % (11.5-14.5); Segmented Neutrophils % 84.4 %
[2018-10-16 05:56] LABS: BUN/Creatinine Ratio 29 (6-26); Blood Urea Nitrogen 10 mg/dL (6-20); Calcium 8.9 mg/dL (8.6-10.3); Carbon Dioxide 25 mEq/L (23-29); Chloride 99 mEq/L (98-107); Glucose 138 mg/dL (70-105); Osmolality,Calculated 275 (280-300); Potassium 4.2 mEq/L (3.5-5.1); Sodium 132 mEq/L (136-145); eGFR For Non-African Americans > 60 (> 60)
[2018-10-16] MEDS: D5% in 0.2% NACL w KCl 1,000 ML IVC SCH ×2 (07:22→22:17)
--- NOTE | 2018-10-16 07:59 | Electrocardiograph Report ---
[facility] Test Date: 2018-10-15 Pat Name: Renita Youngblood Department: [id number] Room: 2A39 Gender: F Tape Editor: : 1965 Requested By: Catarina Prince Order Number: [id number] Reading MD: Cristopher Miles Measurements Intervals Kite Rate: 138 P: 73 GA: 125 QRS: 86 QRSD: 79 T: 256 QT: 339 QTc: 514 Interpretive Statements Sinus tachycardia Atrial premature complex RSR' in V1 or V2, probably normal variant Nonspecific T abnormalities, diffuse leads Prolonged QT interval Baseline wander in lead(s) V1 Electronically Signed On 10-16-2018 7:57:37 EST by Cristopher Miles
[2018-10-16] MEDS: Gabapentin 300 MG CAPSULE PO SCH ×3 (08:34→20:06)
[2018-10-16] MEDS: Primidone 50 MG TABLET PO SCH ×2 (08:34→20:06)
[2018-10-16] MEDS: Loratadine 10 MG TABLET PO SCH (08:35)
[2018-10-16] MEDS: Levofloxacin 750 MG/150 ML 750 MG/150 ML BAG IVPB SCH (08:35)
--- NOTE | 2018-10-16 08:43 | Internal Med Progress Note ---
<HubercaseyTeri lynch - Last Filed: 10/16/18 13:57> Hospitalist Progress Note - Encounter Date of Encounter: 10/16/18 Time of Encounter: 08:35 - Subjective Interval History: Patient seen and examined at bedside. She is lying in bed. She states that she just received pain medication and is currently comfortable. Her appetite has not improved much but she is able to eat some food with her meds. - Exam Vitals: Temp Pulse Resp BP Pulse Ox 99.1 F 129 16 110/68 98 10/16/18 05:49 10/16/18 05:49 10/16/18 07:52 10/16/18 05:49 10/16/18 07:52 Exam: General: alert and oriented, cachectic and ill appearing, mild distress HEENT: NC/AT, PERRLA, EOMI, mucous membranes dry Cardio: tachycardiaw/o MRG, pulses 2+ Respiratory: Diffuse rhonchi and wheezing, audible stridor and wheezing heard Abd: soft, non-tender, no guarding or rigidity, bs present Extremities: non-tender, no edema, pulses 2+ Skin: warm, dry, intact Neuro: alert and oriented, no acute deficits - Assessment and Plan (1) Small cell lung cancer Current Visit: No Status: Acute Assessment and Plan: End stage small cell lung cancer, currently, has had 5 (chemotherapy for palliative measure. Patient has metastases to her bones, cervical lymph nodes and liver with overall poor prognosis. Presented with intractable pain, weakness, dysphasia Oncology and palliative care following. Appreciate their recommendations. Plan: -Fentanyl 25 g, continue hydromorphone for breakthrough pain -Continued discussion for goals of care going forward (2) Metastatic cancer Current Visit: No Status: Acute Assessment and Plan: Per above (3) Tachycardia Current Visit: Yes Status: Acute Assessment and Plan: Pt was tachycardic overnight. Per pt and family at night they did not want to pursue additional workup. HR improved with administration of Corg this morning. Will continue to monitor. (4) Cancer associated pain Current Visit: No Status: Acute Assessment and Plan: Management and recommendations per palliative (5) Dysphagia Current Visit: Yes Status: Acute Assessment and Plan: Patient has increased stridor this morning Speech is following, recommends keeping her NPO and utilizing alternative methods of providing nutrition. Plan: -IV Decadron per palliative -Will need to have care plan discussion with the family for further management (6) Fever Current Visit: Yes Status: Acute Assessment and Plan: Currently afebrile BC pending Plan: -Continue levaquin and cefepime for now DVT Prophylaxis: Heparin SQ - Time Spent with Patient Total time spent is greater than 50% in coordination of care (as documented) at patient's floor/unit and/or counseling patient: Internal Medicine: Result - Labs CBC & Chem 7: 10/16/18 05:00 10/16/18 05:00 Labs: Short CBC 10/15/18 10/16/18 Range/Units 10:42 05:00 WBC 14.4 H D 13.8 H (4.3-11.1) K/mcL Hgb 9.3 L 8.6 L (11.5-15.4) g/dL Hct 28.5 L 26.6 L (35.3-44.9) % Plt Count 307 302 (140-400) K/mcL Neutrophils # 12.4 H 11.6 H (1.6-8.9) K/mcL BMP 10/15/18 10/16/18 10:42 05:00 Sodium 132 L 132 L Potassium 4.0 4.2 Chloride 96 L 99 Carbon Dioxide 27 25 BUN 11 10 Creatinine 0.41 L 0.34 L Glucose 129 H 138 H Calcium 9.1 8.9 Liver Function 10/15/18 Range/Units 10:42 Total Bilirubin 0.4 (0.3-1.0) mg/dL Direct Bilirubin 0.1 (0.0-0.2) mg/dL AST 24 (13-39) Units/L ALT 14 (7-52) Units/L Alkaline Phosphatase 196 H (34-104) Units/L Albumin 3.7 (3.5-5.7) g/dL Urine 10/15/18 Range/Units 11:15 Urine Color Dark Yellow (Yellow) Urine Clarity Cloudy A (Clear) Urine pH 6.5 (5.0-8.0) pH Units Ur Specific [place] 1.023 (1.010-1.025) Urine Protein 30 H (Neg-Trace) mg/dL Urine Glucose (UA) Normal (Normal) mg/dL - ABG Interpretation ABG results: PT/INR, D-dimer PT 13.2 Seconds (9.4-12.1) H 10/15/18 10:42 - Impressions Impressions Chest X-Ray 10/15/18 11:21 IMPRESSION: No acute abnormality. D/ / Quincy Howard MD / Quincy Howard MD Interpreting Provider: Quincy Howard MD Pelvis MRI 10/15/18 16:45 IMPRESSION: 1. Diffuse osseous metastatic disease. No fracture. Lesions throughout the bilateral femoral necks place the patient at increased risk for pathologic fracture. 2. Edema in the soft tissues surrounding the bilateral iliac wings and also within the bilateral proximal adductor muscles. This is nonspecific with the differential including reactive edema from the adjacent osseous metastases versus low-grade muscle strains. No abnormal soft tissue mass. D/ / Sunil Perkins MD / Sunil Perkins MD Interpreting Provider: Sunil Perkins MD Consult Discharge Plan - Plan Referrals: NONE,PCP [Primary Care Provider] - <[place] - Last Filed: 10/16/18 14:33> Hospitalist Progress Note - Encounter Date of Encounter: 10/16/18 Time of Encounter: 10:20 - Exam Vitals: Temp Pulse Resp BP Pulse Ox 98.2 F 96 24 92/61 96 10/16/18 12:22 10/16/18 12:22 10/16/18 12:22 10/16/18 12:22 10/16/18 12:22 - Assessment and Plan (1) Intractable pain Current Visit: Yes Status: Acute (2) Small cell lung cancer Current Visit: No Status: Acute (3) DVT prophylaxis Current Visit: Yes Status: Acute (4) Dysphagia Current Visit: Yes Status: Acute (5) Fever of unknown origin Current Visit: Yes Status: Acute - Time Spent with Patient Total time spent is greater than 50% in coordination of care (as documented) at patient's floor/unit and/or counseling patient: Internal Medicine: Result - Labs CBC & Chem 7: 10/16/18 05:00 10/16/18 05:00 Labs: Short CBC 10/16/18 Range/Units 05:00 WBC 13.8 H (4.3-11.1) K/mcL Hgb 8.6 L (11.5-15.4) g/dL Hct 26.6 L (35.3-44.9) % Plt Count 302 (140-400) K/mcL Neutrophils # 11.6 H (1.6-8.9) K/mcL BMP 10/16/18 05:00 Sodium 132 L Potassium 4.2 Chloride 99 Carbon Dioxide 25 BUN 10 Creatinine 0.34 L Glucose 138 H Calcium 8.9 - ABG Interpretation ABG results: PT/INR, D-dimer PT 13.2 Seconds (9.4-12.1) H 10/15/18 10:42 - Impressions Impressions Pelvis MRI 10/15/18 16:45 IMPRESSION: 1. Diffuse osseous metastatic disease. No fracture. Lesions throughout the bilateral femoral necks place the patient at increased risk for pathologic fracture. 2. Edema in the soft tissues surrounding the bilateral iliac wings and also within the bilateral proximal adductor muscles. This is nonspecific with the differential including reactive edema from the adjacent osseous metastases versus low-grade muscle strains. No abnormal soft tissue mass. D/ / Sunil Perkins MD / Sunil Perkins MD Interpreting Provider: Sunil Perkins MD Videofluoroscopic Swallow 10/16/18 00:01 IMPRESSION: Aspiration with all consistency liquids. Please see separate speech pathology report for full discussion of findings and recommendations. D/ / Dacia Al MD / Dacia Al MD Interpreting Provider: Dacia Al MD Chest CT 10/16/18 12:36 IMPRESSION: 1. Motion artifact on CT soft tissue neck blurs detail. 2. No acute abnormality of the soft tissue structures of the neck; specifically, there is nonvisualization of the nodular lesion described right vocal cord on recent prior study which may simply be blurred by motion. 3. Unchanged malignancy in the chest and bones. 4. Stable marked dilatation of the main pulmonary artery concerning for pulmonary hypertension. 5. Emphysema. 6. Bibasilar subsegmental atelectasis or pneumonitis with associated small volume bilateral pleural effusion. D/ / Herbert Jose / Herbert Jose Interpreting Provider: Herbert Jose Soft Tissue Neck CT 10/16/18 12:36 IMPRESSION: 1. Motion artifact on CT soft tissue neck blurs detail. 2. No acute abnormality of the soft tissue structures of the neck; specifically, there is nonvisualization of the nodular lesion described right vocal cord on recent prior study which may simply be blurred by motion. 3. Unchanged malignancy in the chest and bones. 4. Stable marked dilatation of the main pulmonary artery concerning for pulmonary hypertension. 5. Emphysema. 6. Bibasilar subsegmental atelectasis or pneumonitis with associated small volume bilateral pleural effusion. D/ / Herbert Jose / Herbert Jose Interpreting Provider: Herbert Jose - Attending Attestation I saw evaluated and examined this patient and my medical decision-making was reviewed with the Resident Physician, Teri Benjamin. I agree with the documented findings, disposition and treatment plan as described except to any changes set forth below. We independently had [id number] contact with the patient. Patient is lying down in bed. Does have wheezing and stridor at this time. Reports that her pain is controlled with current pain medication regimen. Denies any fever or chills overnight. Continues to have poor appetite. General: Patient is alert, moderate distress, oriented 3, cachectic ENT: Mucous membranes dry Respiratory: Wheezing and stridor audible. Cardiovascular: Regular rate and rhythm. s1 and s2 normal No clicks, rubs, gallops, or murmurs. No pedal edema Abdomen: Abdomen is soft, nontender. Bowel sounds are present Musculoskeletal: Tenderness present over her hips Skin: warm, dry, intact. Neuro: Alert oriented x 3 normal cranial nerves, no focal deficits Metastatic Small cell lung cancer: Severe cancer related pain. Palliative care on board. Patient receiving hydromorphone orally with improvement in her pain symptoms. Also started on fentanyl patch at this time. Continue supportive care. Palliative care to discuss goals of care with family. Severe protein calorie malnutrition: Due to metastatic small cell lung cancer. Patient started on Marinol. However does have dysphagia. Dysphagia: Due to metastatic small cell lung cancer. Evaluated by speech therapy and recommended to keep nothing by mouth and utilize alternative methods of nutrition. Will discuss with palliative care and family about options at this time. Stridor: Will give intravenous Decadron. Continue bronchodilators. Poor prognosis. High risk for complications. <Teri Benjamin - Last Filed: 10/16/18 13:57> (5) Dysphagia Qualifiers: Dysphagia type: oropharyngeal phase Qualified Code(s): R13.12 - Dysphagia, oropharyngeal phase (6) Fever Qualifiers: Fever type: unspecified Qualified Code(s): R50.9 - Fever, unspecified <Robert Fishman - Last Filed: 10/16/18 14:33> (4) Dysphagia Qualifiers: Dysphagia type: oropharyngeal phase Qualified Code(s): R13.12 - Dysphagia, oropharyngeal phase
[2018-10-16] MEDS ORDERED: Dexamethasone 4 MG/ML VIAL IVP ONE (09:48)
--- NOTE | 2018-10-16 09:55 | Palliative Progress Note ---
Date of Encounter: 10/16/18 Time of Encounter: 09:45 - Assessment and plan (1) Cancer associated pain Current Visit: No Status: Acute Assessment and plan: She has utilized 24mg of Hydromorphone over the past 24 hours equivalent to 96mg Oral Morphine Equivalents. Discussed with her disease and escalating pain, would be beneficial for long acting pain medication and utilize po for breakthrough. With 50% dose reduction for cross tolerance, will begin Fentanyl 25 mcg pain, and titrate as needed. Continue Hydromorphone for breakthrough pain. (2) Dysphagia Current Visit: Yes Status: Acute Assessment and plan: Patient with increased stridor this am. Will begin IV Decadron. Qualifiers: Dysphagia type: oropharyngeal phase Qualified Code(s): R13.12 - Dysphagia, oropharyngeal phase (3) Goals of care, counseling/discussion Current Visit: No Status: Acute Assessment and plan: Patient appears poor - not sure if she will be further candidate for cancer treatment. Sister n to reach out to family to see if they can come in to discuss. Will f/u later today. D/W Dr Fishman. (4) Fever of unknown origin Current Visit: Yes Status: Acute (5) Small cell lung cancer Current Visit: No Status: Acute - Time Spent With Patient Total time spent is greater than 50% in coordination of care (as documented) at patient's floor/unit and/or counseling patient: - Subjective Interval history: Patient with some stridor sounding respirations this am and diaphoretic. She does state pain is better managed. Sister n at bedside. Reports patient has not been able to swallow anything solid. Can get medications down when crushed. MRI bilateral hip results noted. No fracture but widespread osseous disease. - Constitutional Vitals: Abnormal lab results WBC 13.8 K/mcL (4.3-11.1) H 10/16/18 05:00 RBC 2.58 M/mcL (3.82-4.97) L 10/16/18 05:00 Hgb 8.6 g/dL (11.5-15.4) L 10/16/18 05:00 Hct 26.6 % (35.3-44.9) L 10/16/18 05:00 MCV 103.1 fL (83.0-100.0) H 10/16/18 05:00 RDW 18.3 % (11.5-14.5) H 10/16/18 05:00 MPV 9.2 fL (9.4-12.4) L 10/16/18 05:00 Neutrophils # 11.6 K/mcL (1.6-8.9) H 10/16/18 05:00 PT 13.2 Seconds (9.4-12.1) H 10/15/18 10:42 APTT 61.3 Seconds (26.0-36.0) H 10/15/18 10:42 Sodium 132 mEq/L (136-145) L 10/16/18 05:00 Creatinine 0.34 mg/dL (0.60-1.20) L 10/16/18 05:00 BUN/Creatinine Ratio 29 (6-26) H 10/16/18 05:00 Glucose 138 mg/dL (70-105) H 10/16/18 05:00 Calculated Osmolality 275 (280-300) L 10/16/18 05:00 Phosphorus 2.5 mg/dL (2.7-4.5) L 10/15/18 10:42 Alkaline Phosphatase 196 Units/L (34-104) H 10/15/18 10:42 Urine Clarity Cloudy (Clear) A 10/15/18 11:15 Urine Protein 30 mg/dL (Neg-Trace) H 10/15/18 11:15 Urine Bilirubin Small (Negative) H 10/15/18 11:15 Urine Microscopic WBC 5-15 per hpf (0-3) H 10/15/18 11:15 Ur Squamous Epith Cells Many per lpf (None-Few) H 10/15/18 11:15 Urine Bacteria Many per hpf (None-Few) H 10/15/18 11:15 General appearance: Present: mild distress - Respiratory Additional comments: Breath sounds diminished throughout. Faint exp wheezes - Cardiovascular Cardiovascular exam: Present: +S1, +S2, tachycardia - GI/Abdominal GI/Abdominal exam: Present: diminished bowel sounds, soft - Extremities Exam Extremities exam: Present: normal capillary refill, normal inspection - Neurological Exam Neurological exam: Present: strengths equal and symetr throughout Additional comments: Drowsy - difficulty staying awake for any conversations. - Skin Skin exam: Present: dry, pallor, warm Palliative Quality Palliative Quality: Screen for Code Status: No (Will eval in am, patient in pain crisis, unable to discuss presently), Screen for Goals of Care: No, Screen for Pain: Yes, If Pain Regimen Started, Initiate Bowel Regimen: Yes, Screen for Nausea/Vomitting: Yes Code Status: 10/15/18 13:57 Resuscitation Status: Active [RES] Routine Comment: Resuscitation Status: Full Code - Labs CBC & Chem 7: 10/16/18 05:00 10/16/18 05:00 Labs: Laboratory Results - last 24 hr 10/15/18 10/15/18 10/15/18 10:42 10:42 10:42 WBC 14.4 H D RBC 2.81 L Hgb 9.3 L Hct 28.5 L MCV 101.4 H MCH 33.1 MCHC 32.6 RDW 18.2 H Plt Count 307 MPV 9.0 L Immature Gran % 1.9 Seg Neutrophils % 86.2 Lymphocytes % 5.1 Monocytes % 6.6 Eosinophils % 0.0 Basophils % 0.2 Neutrophils # 12.4 H Lymphocytes # 0.7 Monocytes # 1.0 Eosinophils # 0.0 Basophils # 0.0 PT 13.2 H INR 1.2 APTT 61.3 H Sodium 132 L Potassium 4.0 Chloride 96 L Carbon Dioxide 27 BUN 11 Creatinine 0.41 L Est GFR ( Amer) > 60 Est GFR (Non-Af Amer) > 60 BUN/Creatinine Ratio 27 H Glucose 129 H Calculated Osmolality 275 L Lactic Acid Calcium 9.1 Phosphorus 2.5 L Magnesium 2.0 Total Bilirubin 0.4 Direct Bilirubin 0.1 Indirect Bilirubin 0.3 AST 24 ALT 14 Alkaline Phosphatase 196 H Serum Total Protein 7.1 Albumin 3.7 Globulin 3.4 Albumin/Globulin Ratio 1.1 Urine Color Urine Clarity Urine pH Ur Specific [place] Urine Protein Urine Glucose (UA) Urine Ketones Urine Blood Urine Nitrite Urine Bilirubin Urine Urobilinogen Ur Leukocyte Esterase Urine Microscopic RBC Urine Microscopic WBC Ur Squamous Epith Cells Urine Bacteria Hyaline Casts Ur Culture Indicated? Chlamy pneumoniae PCR Adenovirus (PCR) B. pertussis DNA (PCR) B.parapertussis DNA PCR Coronavirus OC43 (PCR) Coronavirus HKU1 (PCR) Coronavirus 229E (PCR) Coronavirus NL63 (PCR) Human Metapneumovir PCR Influenza A (H1) PCR Influ A (H1N1/09) PCR Influenza A (H3) PCR Influenza A Untype (PCR) Influenza Type B (PCR) M.pneumoniae DNA (PCR) Parainfluenza 1 (PCR) Parainfluenza 2 (PCR) Parainfluenza 3 (PCR) Parainfluenza 4 (PCR) RSV (PCR) Entero/Rhino (PCR) 10/15/18 10/15/18 10/15/18 11:04 11:15 15:14 WBC RBC Hgb Hct MCV MCH MCHC RDW Plt Count MPV Immature Gran % Seg Neutrophils % Lymphocytes % Monocytes % Eosinophils % Basophils % Neutrophils # Lymphocytes # Monocytes # Eosinophils # Basophils # PT INR APTT Sodium Potassium Chloride Carbon Dioxide BUN Creatinine Est GFR ( Amer) Est GFR (Non-Af Amer) BUN/Creatinine Ratio Glucose Calculated Osmolality Lactic Acid 2.4 H 1.3 Calcium Phosphorus Magnesium Total Bilirubin Direct Bilirubin Indirect Bilirubin AST ALT Alkaline Phosphatase Serum Total Protein Albumin Globulin Albumin/Globulin Ratio Urine Color Dark Yellow Urine Clarity Cloudy A Urine pH 6.5 Ur Specific [place] 1.023 Urine Protein 30 H Urine Glucose (UA) Normal Urine Ketones Negative Urine Blood Negative Urine Nitrite Negative Urine Bilirubin Small H Urine Urobilinogen Normal Ur Leukocyte Esterase Negative Urine Microscopic RBC 0-3 Urine Microscopic WBC 5-15 H Ur Squamous Epith Cells Many H Urine Bacteria Many H Hyaline Casts Few Ur Culture Indicated? NO Chlamy pneumoniae PCR Adenovirus (PCR) B. pertussis DNA (PCR) B.parapertussis DNA PCR Coronavirus OC43 (PCR) Coronavirus HKU1 (PCR) Coronavirus 229E (PCR) Coronavirus NL63 (PCR) Human Metapneumovir PCR Influenza A (H1) PCR Influ A (H1N1/09) PCR Influenza A (H3) PCR Influenza A Untype (PCR) Influenza Type B (PCR) M.pneumoniae DNA (PCR) Parainfluenza 1 (PCR) Parainfluenza 2 (PCR) Parainfluenza 3 (PCR) Parainfluenza 4 (PCR) RSV (PCR) Entero/Rhino (PCR) 10/15/18 10/16/18 10/16/18 17:15 05:00 05:00 WBC 13.8 H RBC 2.58 L Hgb 8.6 L Hct 26.6 L MCV 103.1 H MCH 33.3 MCHC 32.3 RDW 18.3 H Plt Count 302 MPV 9.2 L Immature Gran % 2.5 Seg Neutrophils % 84.4 Lymphocytes % 6.2 Monocytes % 6.6 Eosinophils % 0.1 Basophils % 0.2 Neutrophils # 11.6 H Lymphocytes # 0.9 Monocytes # 0.9 Eosinophils # 0.0 Basophils # 0.0 PT INR APTT Sodium 132 L Potassium 4.2 Chloride 99 Carbon Dioxide 25 BUN 10 Creatinine 0.34 L Est GFR ( Amer) > 60 Est GFR (Non-Af Amer) > 60 BUN/Creatinine Ratio 29 H Glucose 138 H Calculated Osmolality 275 L Lactic Acid Calcium 8.9 Phosphorus Magnesium Total Bilirubin Direct Bilirubin Indirect Bilirubin AST ALT Alkaline Phosphatase Serum Total Protein Albumin Globulin Albumin/Globulin Ratio Urine Color Urine Clarity Urine pH Ur Specific [place] Urine Protein Urine Glucose (UA) Urine Ketones Urine Blood Urine Nitrite Urine Bilirubin Urine Urobilinogen Ur Leukocyte Esterase Urine Microscopic RBC Urine Microscopic WBC Ur Squamous Epith Cells Urine Bacteria Hyaline Casts Ur Culture Indicated? Chlamy pneumoniae PCR Not Detected Adenovirus (PCR) Not Detected B. pertussis DNA (PCR) Not Detected B.parapertussis DNA PCR Not Detected Coronavirus OC43 (PCR) Not Detected Coronavirus HKU1 (PCR) Not Detected Coronavirus 229E (PCR) Not Detected Coronavirus NL63 (PCR) Not Detected Human Metapneumovir PCR Not Detected Influenza A (H1) PCR Not Detected Influ A (H1N1/09) PCR Not Detected Influenza A (H3) PCR Not Detected Influenza A Untype (PCR) Not Detected Influenza Type B (PCR) Not Detected M.pneumoniae DNA (PCR) Not Detected Parainfluenza 1 (PCR) Not Detected Parainfluenza 2 (PCR) Not Detected Parainfluenza 3 (PCR) Not Detected Parainfluenza 4 (PCR) Not Detected RSV (PCR) Not Detected Entero/Rhino (PCR) Not Detected - Impressions Impressions Chest X-Ray 10/15/18 11:21 IMPRESSION: No acute abnormality. D/ / Quincy Howard MD / Quincy Howard MD Interpreting Provider: Quincy Howard MD Pelvis MRI 10/15/18 16:45 IMPRESSION: 1. Diffuse osseous metastatic disease. No fracture. Lesions throughout the bilateral femoral necks place the patient at increased risk for pathologic fracture. 2. Edema in the soft tissues surrounding the bilateral iliac wings and also within the bilateral proximal adductor muscles. This is nonspecific with the differential including reactive edema from the adjacent osseous metastases versus low-grade muscle strains. No abnormal soft tissue mass. D/ / Sunil Perkins MD / Sunil Perkins MD Interpreting Provider: Sunil Perkins MD - ABG Interpretation ABG results: PT/INR, D-dimer PT 13.2 Seconds (9.4-12.1) H 10/15/18 10:42 Consult Discharge Plan - Plan Referrals: NONE,PCP [Primary Care Provider] -
[2018-10-16] MEDS ORDERED: *HR* FentaNYL PATCH 25 MCG PATCH TD SCH (10:00)
--- NOTE | 2018-10-16 11:56 | Oncology Inp Progress Note ---
<Sharon Mcgee S - Last Filed: 10/16/18 18:23> Date of Encounter: 10/16/18 Oncology: Obj Data - Labs CBC & Chem 7: 10/16/18 05:00 10/16/18 05:00 Consult Discharge Plan - Plan Referrals: NONE,PCP [Primary Care Provider] - Inpatient Charges Provider: Dr. Tawana Mcgee Follow up - Inpatient: [id number] - Attending Attestation I examined this patient and my medical decision-making was reviewed with the Advanced Practice Nurse. I agree with the documented findings, disposition and treatment plan as described except to the extent set forth below. 1. She developed respiratory problems including stridor-like features. On 10/16/2017 video swallow study showed aspiration with all consistency. GI has been consulted for EGD. She had history of esophageal strictures in the past post delectation. Some of her respiratory symptoms could be from aspiration CT neck and chest with IV contrast on 10/16/2017 showed stable mediastinal adenopathy. No strictures in the neck identified Echocardiogram showed normal ejection fraction T5 percent. No pericardial effusion. She had a previous pericardial window Started on Decadron currently 4 mg twice a day 2. Metastatic small cell lung cancer. She had widespread bony metastasis 3. MRI pelvis showed bilateral femur neck metastasis putting her at risk for fracture. Also diffuse bilateral pelvic metastasis edema in the adductor muscles. We will consult radiation oncology for possible palliative radiation 4. Intractable pain . Currently on Dilaudid IV. Started on fentanyl patches well. Overall her general condition has deteriorated significantly. Also MRI reveals significant amount of bone metastasis. Looks like she is refractory to the chemotherapy she had. We will discussed the family about palliative care versus further treatment. She also has some visual changes. We will repeat MRI brain with and without contrast <Jovanna Baker L - Last Filed: 10/17/18 10:34> Date of Encounter: 10/16/18 Time of Encounter: 11:30 (1) Cancer associated pain Current Visit: No Status: Acute Assessment and plan: Palliative following, appreciate recommendations She was started on 25 g fentanyl patch today, we will continue to use hydromorphone as needed for breakthrough pain Patient reports widespread bone pain however most significant of her pain is to her pelvic area MRI of the pelvis was obtained today which revealed diffuse metastatic disease with no acute fracture currently although patient is at high risk for femur neck fracture Will review imaging with Dr. Mcgee, consider palliative radiotherapy (2) Dysphagia Current Visit: Yes Status: Acute Assessment and plan: Patient endorses a several day history of worsening dysphagia and globus sensation She has a history of esophageal strictures requiring dilation in the past Overnight she developed acute worsening inspiratory stridor with no associated respiratory distress, maintaining airway, O2 saturations adequate on 2 L Field swallow evaluation today with aspiration of all liquids, recommended to make patient nothing by mouth and fine alternative route of nutrition Patient has transitioned to DNR CCA DNI but does wish to continue with other aggressive workup and management. We will consult GI for further evaluation and potential EGD Consider ENT versus pulmonology consult for stridor, he was getting loading dose of Decadron 10 mg and scheduled 4 milligram twice a day CT of the chest and neck with IV contrast was ordered for further evaluation which is unrevealing for other acute etiology, findings consistent with prior known imaging Respiratory panel negative Qualifiers: Qualified Code(s): R13.12 - Dysphagia, oropharyngeal phase (3) Fever of unknown origin Current Visit: Yes Status: Acute Assessment and plan: source unknown peripheral blood culture drawn in ER--pending Added blood culture from port system--pending Cefepime and levaquin started Respiratory infectious panel including influenza negative Urine analysis appears to be contaminated Meeting SIRS criteria on admission with leukocytosis, fever and tachycardia Afebrile since 3 PM yesterday HR improved with Coreg Echo ordered, trace pericardial effusion with no evidence of echocardiographic tamponade (4) Small cell lung cancer Current Visit: No Status: Acute Assessment and plan: Extensive stage small cell lung cancer. She completed 4 cycles of carboplatin and etoposide with immunotherapy Atezolizumab from cycle 2. She was hospitalized earlier this month and she had the following workup. She had a MRI brain with and without contrast 10/02/2018 was negative for metastasis. Chronic white matter ischemic changes CT neck and chest and abdomen with IV contrast on 10/02/2018 showed thickening of the left aryepiglottic fold. Asymmetric vocal cards with thickening of right vocal cord small hypodensity. CT chest showed unchanged mediastinal bulky adenopathy compared to August 2018. Significant improvement in the liver metastasis. Also diffuse sclerotic metastasis in the skeleton which may indicate treatment response Her mediastinal bulky adenopathy has improved significantly since start of treatment but she still has persistent lymphadenopathy. Initially planned for 1 more cycle of treatment followed with maintenance atezolizumab, however, this will be an ongoing evaluation dependent upon her further monitoring of her current clinical status and response to treatment As described in history of present illness CODE STATUS was discussed with patient and patient's sister at bedside today, she does not wish to be intubated or have CPR, CODE STATUS changed to DNR CCA DO NOT INTUBATE. Currently patient' s son is listed as her sole POA, I did discuss this with patient as her son has not been very present during most of her care, she does not wish to make any changes to power of ip technology transactions attorney at this time. Patient does wish to continue to pursue aggressive workup, interventions and treatment. She does not wish to pursue full comfort care at this time. This will be an ongoing discussion and evaluation. Oncology: Subj Interval history: Ms. Youngblood seen and examined at bedside. Overnight she developed acute inspiratory stridor. This appears to increase her work of breathing on the patient states she does not feel short of breath or in any distress. O2 sats are adequate on 2 L. She is drowsy but arouses to voice. Her sister is at bedside. She was also developed hypotension as well as tachycardia. Condition appears guarded. We discussed CODE STATUS patient wishes to transition to a DNR CCA DO NOT INTUBATE, we discussed next steps in patient does however wish to continue to pursue further aggressive workup and treatment at this time - Constitutional General appearance: cooperative, mild distress, no febrile - Head Head exam: Present: atraumatic - ENT ENT exam: Present: mucous membranes moist, normal oropharynx - Respiratory Respiratory exam: Present: decreased breath sounds, rhonchi Additional comments: upper airway stridor with harsh lung sounds - Cardiovascular Cardiovascular exam: Present: RRR, +S1, +S2, tachycardia - GI/Abdominal GI/Abdominal exam: Present: normal bowel sounds, soft. Absent: guarding, rebound, tenderness - Extremities Exam Extremities exam: Present: normal inspection. Absent: calf tenderness - Neurological Exam Neurological exam: Present: alert, oriented X3, no focal deficits, strengths equal and symetr throughout. Absent: facial droop, speech deficit Additional comments: Limited neurological exam, patient does not consistently follow commands, drowsy at times but responds to voice - Psychiatric Psychiatric exam: Present: anxious - Skin Skin exam: Present: dry, intact, normal color, warm Oncology: Obj Data - Labs CBC & Chem 7: 10/17/18 04:31 10/17/18 04:31 Inpatient Charges Provider: Dr. Tawana Mcgee
[2018-10-16] MEDS ORDERED: Isovue-370 500 ML BOTTLE IVP ONE ×2 (12:34→12:36)
[2018-10-16] MEDS: *HR* HYDROmorphone (PF) 1 MG/ML SYRINGE IVP PRN ×4 (15:36→22:42)
--- NOTE | 2018-10-16 17:39 | Event Note ---
Date of Encounter: 10/16/18 Time of Encounter: 17:35 Went to the patient's room to discuss nutritional status with the patient and her sister. We discussed that it is currently being recommended that she not taken anything by mouth and have alternative methods of nutrition. Options of alternative nutrition supplementation were explained patient including feeding tube, PEG, TPN. The patient states that at this time she prefers the TPN option. I discussed that we will discuss this with palliative and nutrition in the morning and can go forward from there. PEG tube placement would be ideal for the patient, but ultimately the decision is up to her. We will keep her NPO except for medications and evaluate in the morning.
[2018-10-16] MEDS ORDERED: Gadolinium Contrast Agent (WT Based) IV PRN (18:29)
--- NOTE | 2018-10-16 18:44 | Electrocardiograph Report ---
[address] [place], [place] [address] Test Date: 2018-10-16 Pat Name: Renita Youngblood Department: 112 Room: 2A39 Gender: F Manager Of Human Resources: DAVID : [id number] Requested By: Maurice Bowden Order Number: [id number] Reading MD: Sunil Smith Measurements Intervals [place] Rate: 134 P: 50 ME: 128 QRS: 76 QRSD: 82 T: 71 QT: 331 QTc: 410 Interpretive Statements SINUS TACHYCARDIA POSSIBLE RIGHT VENTRICULAR CONDUCTION DELAY ST DEVIATION AND MODERATE T-WAVE ABNORMALITY, CONSIDER ANTERIOR ISCHEMIA Electronically Signed On 10-16-2018 18:42:31 EST by Sunil Smith
[2018-10-16] MEDS: Dexamethasone 4 MG/ML VIAL IVP SCH (22:16)
[2018-10-17] MEDS: *HR* HYDROmorphone (PF) 1 MG/ML SYRINGE IVP PRN ×7 (01:15→20:12)
[2018-10-17 05:02] LABS: Hematocrit 26.3 % (35.3-44.9); Hemoglobin 8.5 g/dL (11.5-15.4); Mean Corpuscular HGB Conc 32.3 g/dL (31.6-35.5); Mean Corpuscular Hemoglobin 32.7 pg (28.0-33.3); Mean Corpuscular Volume 101.2 fL (83.0-100.0); Mean Platelet Volume 9.4 fL (9.4-12.4); Platelet Count 330 K/mcL (140-400); Red Cell Distribution Width 17.5 % (11.5-14.5)
[2018-10-17 05:19] LABS: BUN/Creatinine Ratio 29 (6-26); Blood Urea Nitrogen 9 mg/dL (6-20); Calcium 9.2 mg/dL (8.6-10.3); Carbon Dioxide 26 mEq/L (23-29); Chloride 98 mEq/L (98-107); Glucose 140 mg/dL (70-105); Osmolality,Calculated 275 (280-300); Potassium 4.5 mEq/L (3.5-5.1); Sodium 132 mEq/L (136-145); eGFR For Non-African Americans > 60 (> 60)
[2018-10-17] MEDS: *HR* Heparin 5,000 UNIT/ML VIAL SQ SCH ×2 (06:35→17:20)
[2018-10-17] MEDS: Cefepime HCl 2,000 MG in Water for inj. (sterile) 20 ML 20 ML IVP SCH ×3 (06:41→22:28)
[2018-10-17] MEDS: Primidone 50 MG TABLET PO SCH ×2 (07:37→20:11)
[2018-10-17] MEDS: Loratadine 10 MG TABLET PO SCH (07:37)
[2018-10-17] MEDS: Gabapentin 300 MG CAPSULE PO SCH ×3 (07:37→20:11)
[2018-10-17] MEDS: Dexamethasone 4 MG/ML VIAL IVP SCH ×2 (08:49→20:11)
[2018-10-17] MEDS: Levofloxacin 750 MG/150 ML 750 MG/150 ML BAG IVPB SCH (08:49)
[2018-10-17] MEDS: D5% in 0.2% NACL w KCl 1,000 ML IVC SCH (08:50)
[2018-10-17] MEDS ORDERED: *HR* FentaNYL PATCH 25 MCG PATCH TD SCH (10:00)
--- NOTE | 2018-10-17 10:24 | Oncology Inp Progress Note ---
<Sofi Baldwin - Last Filed: 10/17/18 10:21> Date of Encounter: 10/17/18 Time of Encounter: 10:21 (1) Cancer associated pain Current Visit: Yes Status: Acute Assessment and plan: Palliative following, appreciate recommendations She was started on 25 g fentanyl patch today, we will continue to use hydromorphone as needed for breakthrough pain Patient reports widespread bone pain however most significant of her pain is to her pelvic area MRI pelvis showed diffuse metastatic disease with no acute fracture (2) Fever Current Visit: Yes Status: Resolved Assessment and plan: source unknown peripheral blood culture drawn in ER--pending Added blood culture from port system--pending Cefepime day 4 and levaquin day 3 Respiratory infectious panel including influenza negative Urine analysis appears to be contaminated Met SIRS criteria on admission with leukocytosis, fever and tachycardia last fever 10/15 Qualifiers: Fever type: unspecified Qualified Code(s): R50.9 - Fever, unspecified (3) Dysphagia Current Visit: Yes Status: Acute Assessment and plan: Currently npo due to dysphagia - developed acute onset inspiratory stridor this hospitalization She is deciding if she wants to have an EGD later today or tomorrow Discussions about other forms of nutrition - at this point in time she is having increased anxiety about her condition. She was counseled to make one decision at a time. Today's decision is if she wants to have an EGD. Qualifiers: Dysphagia type: oropharyngeal phase Qualified Code(s): R13.12 - Dysphagia, oropharyngeal phase (4) Small cell lung cancer Current Visit: Yes Status: Chronic Assessment and plan: Extensive stage small cell lung cancer. She completed 4 cycles of carboplatin and etoposide with immunotherapy Atezolizumab from cycle 2. She was hospitalized earlier this month and she had the following workup. She had a MRI brain with and without contrast 10/02/2018 was negative for metastasis. Chronic white matter ischemic changes CT neck and chest and abdomen with IV contrast on 10/02/2018 showed thickening of the left aryepiglottic fold. Asymmetric vocal cards with thickening of right vocal cord small hypodensity. CT chest showed unchanged mediastinal bulky adenopathy compared to August 2018. Significant improvement in the liver metastasis. Also diffuse sclerotic metastasis in the skeleton which may indicate treatment response Her mediastinal bulky adenopathy has improved significantly since start of treatment but she still has persistent lymphadenopathy. Initially planned for 1 more cycle of treatment followed with maintenance atezolizumab, however, this will be an ongoing evaluation dependent upon her further monitoring of her current clinical status and response to treatment As described in history of present illness CODE STATUS was discussed with patient and patient's sister at bedside today, she does not wish to be intubated or have CPR, CODE STATUS changed to DNR CCA DO NOT INTUBATE. Currently patient's son is listed as her sole POA, I did discuss this with patient as her son has not been very present during most of her care, she does not wish to make any changes to power of employee benefits attorney at this time. Patient does wish to continue to pursue aggressive workup, interventions and treatment. She does not wish to pursue full comfort care at this time. This will be an ongoing discussion and evaluation. (5) Metastatic cancer Current Visit: Yes Status: Chronic Oncology: Subj Interval history: Patient is adamant that she wants to live to see her grandchildren grow up. She is still considering if she will have an EGD done later today. - Constitutional Exam: General: alert, no acute distress, thin HEENT: atraumatic, normocephalic, external ears normal, PEERLA EOMI, neck supple , trachea midline Heart: RRR Lungs: inspiratory stridor Abdomen: soft, nontender, bowel sounds present Extremities: no edema Skin: warm, dry, intact Neuro: A&Ox3, no focal deficits Psych: anxious, agitated Oncology: Obj Data - Labs CBC & Chem 7: 10/17/18 04:31 10/17/18 04:31 Consult Discharge Plan - Plan Referrals: NONE,PCP [Primary Care Provider] - Inpatient Charges Provider: Dr. Tawana Mcgee <Sharon Mcgee S - Last Filed: 10/17/18 17:53> Date of Encounter: 10/17/18 Oncology: Obj Data - Labs CBC & Chem 7: 10/17/18 04:31 10/17/18 04:31 Inpatient Charges Provider: Dr. Tawana Mcgee Follow up - Inpatient: [id number] - Attending Attestation I examined this patient and my medical decision-making was reviewed with Dr. Sofi Baldwin. I agree with the documented findings, disposition and treatment plan as described except to the extent set forth below. 1. Extensive stage small cell lung cancer. She completed 4 cycles of carboplatin and etoposide with Atezolizumab. She had a good response in the l iver and decent response in the mediastinum. But still has residual adenopathy. Her response in the bone metastasis was suboptimal. Her MRI pelvis reveals bilateral metastasis in the ilium and femur with significant pain. Dr. Mccloud radiation oncology has been consulted These findings were discussed with the patient and the family. Her general condition has deteriorated I am not sure if she could tolerate further chemotherapy. 2. Continue to have pain in both shoulder right acromion more than the left acromial area. MRI brain scheduled for tomorrow morning and will add a MRI both shoulders 2. Dysphagia with aspiration to any consistency fluid. 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 One nonbleeding gastric ulcer Her etiology of dysphagia is not completely clear. She had esophageal stricture in the past but the current EGD does not demonstrate any esophageal stricture Advance feedings as tolerated. Nutritional consult. Briefly discussed about PEG tube. She is opposed to that idea for now. But she understands she is losing weight she lost about 3 kg in the last 2 months she lost plenty of weight before that worked 15 kg in the last 6 months 3. Cancer related pain. Most of her pain is in the pelvis/hip joint right more than left and bilateral shoulders. This is most likely from bone metastasis. Her pain management is better in the hospital. Palliative care involved respiratory problems Dr. Mccloud will discuss about possible radiation to the pelvis. Also if she could benefit from radiation to the shoulders 4. Increased shortness of breath. She does have mildly enlarged neck veins. Looks like a inspiratory stridor. Pulmonology consult Overall prognosis poor. We will continue to discuss with the patient and family about further goals of care
[2018-10-17] MEDS: *HR* LORazepam 2 MG/ML VIAL IVP PRN ×2 (10:47→18:24)
--- NOTE | 2018-10-17 11:17 | Gastroenterology Consult Note ---
<Bo Coles - Last Filed: 10/17/18 11:13> Date of Encounter: 10/17/18 Time of Encounter: 09:40 - Assessment and plan (1) Dysphagia Current Visit: Yes Status: Acute Assessment and plan: Patient with history of Schatzki ring with dilation. Swallow study completed yesterday showed aspiration with all consistency of liquids. Recommend EGD with possible dilation to r/o structural causes such as stricture, tumor, etc vs esophageal motility disorder. She states she wants to think about having the EGD done today vs tomorrow. Spoke to patient regarding PEG tube, and she would like to wait on that decision. Qualifiers: Dysphagia type: oropharyngeal phase Qualified Code(s): R13.12 - Dysphagia, oropharyngeal phase (2) Small cell lung cancer Current Visit: Yes Status: Chronic - Time Spent With Patient Total time spent is greater than 50% in coordination of care (as documented) at patient's floor/unit and/or counseling patient: GI History of Present Illness - Data of Consult Patient: known to practice within the last 3 years Consult date: 10/17/18 Requesting Physician: Michael Lazcano MD - Consult Narrative Reason for consult: Hx of esophageal strictures, dysphagia History of present illness: Ms. Youngblood is a 53 year old female with PMHx of metastatic small cell carcinoma, COPD, GERD, HTN, who was admitted with increased bone pain. We were consulted to evaluate her dysphagia. She has history of Schatzki ring which was dilated. Symptoms have been worsening over the past few months. Swallow study completed yesterday showed aspiration with all consistency of liquids. Primary team and Oncology team have discussed other forms of nutrition with the patient, including PEG tube. Currently the patient is not agreaable to PEG tube placement. Procedures: EGD 03/13/2017 Dr. Bradley: Mild Schatzki ring which was dilated. Colonoscopy 05/02/2014 Dr. Cervantes: Internal hemorrhoids, 4mm hyperplastic polyp. EGD 05/02/2014 Dr. Cervantes: Emperic dilation of entire esophagus. NSAIDs: None Anticoagulation: None Past Med Surg Social Fam HX - Past Medical History Medical history: cancer, COPD, GERD, hypertension, other Additional medical history: Epilepsy Psychiatric history: anxiety, depression - Past Surgical History Surgical History: hysterectomy Additional surgical history: nose reconstruction, tubal ligation - Social History Smoking Status: Current every day smoker Smokeless Tobacco Status: No Alcohol use: none Drug use: none - Family History Mother Living Status: Still Living Hx Family Cardiac Disorders: Yes Hx Family Respiratory Disorders: Yes Hx Family Cancer: Yes (breast) Hx Family Endocrine Disorder: Yes Hx Family Neurologic Disorders: No Father Living Status: Hx Family Cancer: Yes (lung) - Gastrointestinal Gastrointestinal: Present: as per HPI - Constitutional Constitutional: as per HPI - EENT Eyes: as per HPI Ears: Present: as per HPI Nose, mouth and throat: Present: as per HPI - Cardiovascular Cardiovascular ROS: Present: as per HPI - Respiratory Respiratory IM: Present: as per HPI - Genitourinary Genitourinary: Absent: change in color, Urinary frequency - Neurological ROS Neurological GI: Present: as per HPI - Hematologic/Lymphatic Hematologic/Lymphatic pediatric: Present: as per HPI - Musculoskeletal Musculoskeletal ROS GI: Present: as per HPI - Integumentary Integumentary GI: Present: as per HPI - Psychiatric ROS Psychiatric GI: Present: as per HPI - Endocrine Endocrine IM: Present: as per HPI - Constitutional Vitals: Temp Pulse Resp BP Pulse Ox 98.1 F 103 22 128/85 98 10/17/18 03:34 10/17/18 07:17 10/17/18 07:17 10/17/18 07:17 10/17/18 07:17 General appearance: Present: cooperative, A&O X 3, no acute distress, answers questions appropriately - Head Head exam: Present: atraumatic, normocephalic - Eye Eye exam: Present: normal appearance, sclera anicteric - ENT ENT exam: Present: mucous membranes dry - Neck Neck exam general surgery: Present: normal inspection, trachea midline - Respiratory Respiratory exam: Present: decreased breath sounds, rhonchi - Cardiovascular Cardiovascular exam: Present: RRR, +S1, +S2 - GI/Abdominal GI/Abdominal exam: Present: soft, no peritoneal signs. Absent: distended, firm, guarding, tenderness - Rectal Rectal exam: Present: deferred - Extremities Exam Extremities exam: Present: warm - Neurological Exam Neurological exam: Present: no focal deficits - Psychiatric Psychiatric exam: Present: anxious - Skin Skin exam: Present: dry, intact, normal color, warm Results - Labs CBC & Chem 7: 10/17/18 04:31 10/17/18 04:31 Labs: Last Result Calcium 9.2 mg/dL (8.6-10.3) 10/17/18 04:31 Entire Visit Hgb 8.5 g/dL (11.5-15.4) L 10/17/18 04:31 Hct 26.3 % (35.3-44.9) L 10/17/18 04:31 PT 13.2 Seconds (9.4-12.1) H 10/15/18 10:42 Total Bilirubin 0.4 mg/dL (0.3-1.0) 10/15/18 10:42 AST 24 Units/L (13-39) 10/15/18 10:42 ALT 14 Units/L (7-52) 10/15/18 10:42 - ABG ABG results: PT/INR, D-dimer PT 13.2 Seconds (9.4-12.1) H 10/15/18 10:42 - Impressions Impressions Videofluoroscopic Swallow 10/16/18 00:01 IMPRESSION: Aspiration with all consistency liquids. Please see separate speech pathology report for full discussion of findings and recommendations. D/ / Dacia Al MD / Dacia Al MD Interpreting Provider: Dacia Al MD Chest CT 10/16/18 12:36 IMPRESSION: 1. Motion artifact on CT soft tissue neck blurs detail. 2. No acute abnormality of the soft tissue structures of the neck; specifically, there is nonvisualization of the nodular lesion described right vocal cord on recent prior study which may simply be blurred by motion. 3. Unchanged malignancy in the chest and bones. 4. Stable marked dilatation of the main pulmonary artery concerning for pulmonary hypertension. 5. Emphysema. 6. Bibasilar subsegmental atelectasis or pneumonitis with associated small volume bilateral pleural effusion. D/ / Herbert Jose / Herbert Jose Interpreting Provider: Herbert Jose Soft Tissue Neck CT 10/16/18 12:36 IMPRESSION: 1. Motion artifact on CT soft tissue neck blurs detail. 2. No acute abnormality of the soft tissue structures of the neck; specifically, there is nonvisualization of the nodular lesion described right vocal cord on recent prior study which may simply be blurred by motion. 3. Unchanged malignancy in the chest and bones. 4. Stable marked dilatation of the main pulmonary artery concerning for pulmonary hypertension. 5. Emphysema. 6. Bibasilar subsegmental atelectasis or pneumonitis with associated small volume bilateral pleural effusion. D/ / Herbert Jose / Herbert Jose Interpreting Provider: Herbert Jose Echocardiogram 10/16/18 12:37 Impressions: LVEF 65-70%. Normal LV chamber size, wall thickness and function. Normal right ventricular structure and function. No significant valvular dysfunction. No pulmonary hypertension. Trace pericardial effusion without echocardiographic evidence of tamponade. Left Ventricular Wall Motion: Rest Echo Findings All wall segments showed normal motion. Findings: Study Quality * Technically adequate exam. ECG Findings * Sinus rhythm. Left Ventricle * LVEF 65-70%. * Normal LV chamber size, wall thickness and function. * Normal left ventricular diastolic function. Right Ventricle * Normal right ventricular structure and function. Left Atrium * Normal left atrial size. Right Atrium * Normal right atrial size. Interatrial Septum * Interatrial septum not well evaluated. * No evidence of PFO by color Doppler. Aortic Valve * Aortic valve not well visualized. * No aortic stenosis. * No aortic regurgitation. Mitral Valve * Normal mitral valve structure. * No mitral stenosis. * Trace mitral regurgitation. Tricuspid Valve * Normal tricuspid valve structure. * No tricuspid stenosis. * Trace tricuspid regurgitation. * Estimated RVSP is 25 mmHg. * Estimated RA pressure is 3 mmHg. * No pulmonary hypertension. Pulmonic Valve * Pulmonic valve is not well visualized. * No pulmonic stenosis. * No pulmonic regurgitation. Aorta * Normally sized aortic root. Pericardium * There is a trivial pericardial effusion present without echocardiographic evidence of tamponade. IVC * Normal IVC dimensions and inspiratory collapse. Consult Discharge Plan - Plan Referrals: NONE,PCP [Primary Care Provider] - <Armando Cervantes - Last Filed: 10/17/18 17:12> Date of Encounter: 01/30/19 Time of Encounter: 14:00 - Time Spent With Patient Total time spent is greater than 50% in coordination of care (as documented) at patient's floor/unit and/or counseling patient: GI History of Present Illness - Data of Consult Requesting Physician: Michael Lazcano MD - Consult Narrative History of present illness: Ms. Youngblood is a 53 year old female - Constitutional Vitals: Temp Pulse Resp BP Pulse Ox 97.6 F 93 16 120/83 93 10/17/18 14:26 10/17/18 14:26 10/17/18 14:26 10/17/18 14:26 10/17/18 14:26 Results - Labs CBC & Chem 7: 10/17/18 04:31 10/17/18 04:31 Labs: Last Result Calcium 9.2 mg/dL (8.6-10.3) 10/17/18 04:31 Entire Visit Hgb 8.5 g/dL (11.5-15.4) L 10/17/18 04:31 Hct 26.3 % (35.3-44.9) L 10/17/18 04:31 PT 13.2 Seconds (9.4-12.1) H 10/15/18 10:42 Total Bilirubin 0.4 mg/dL (0.3-1.0) 10/15/18 10:42 AST 24 Units/L (13-39) 10/15/18 10:42 ALT 14 Units/L (7-52) 10/15/18 10:42 - ABG ABG results: PT/INR, D-dimer PT 13.2 Seconds (9.4-12.1) H 10/15/18 10:42 - Attending Attestation I have personally performed a face to face evaluation on this patient. I have reviewed and agree with the care plan. History and Exam by me shows: Patient seen patient with a history of metastatic small cell lung cancer now with stridor and some difficulty swallowing. Per patient she cannot swallow liquids. On examination: Patient will look very ill but not in acute distress. Assessment: Patient with metastatic small cell lung cancer now with possible dysphagia. Recommendation: EGD to rule out structural versus infectious causes for his symptoms
--- NOTE | 2018-10-17 13:56 | Anesthesia Evaluation PreOp ---
Date of Encounter: 10/18/18 Time of Encounter: 14:10 - Past History Planned Operation: EGD, POSSIBLE DILATION Cardiac History: HTN Pulmonary History: Other (METASTATIC SCC LUNG CA, LAST CHEMO 2 WEEKS AGO) [employer] History: Seizures, Other (DEPRESSION) Other Medical History: Bleeding (ANEMIA), GERD (HO ESOPHAGEAL STRICTURE), Other (SWALLOW STUDY: ASPIRATION WITH ALL FOOD CONSISTENCIES) Anesthesia History: No Prior Anesthetic Complications, Past Anesthesia Alcohol Use: none Drug use: none Medications and Allergies Loratadine [Claritin] 10 mg PO DAILY 10/25/15 [History] Acetaminophen [Tylenol] 1,000 mg PO Q6H PRN 07/21/18 [History] Albuterol Neb [AccuNeb] 0.63 mg IH BID PRN 07/21/18 [History] Albuterol Sulfate [Proair Hfa] 2 puff IH Q4H PRN 07/21/18 [History] Cyclobenzaprine [Flexeril] 10 mg PO DAILY PRN 07/21/18 [History] Prochlorperazine Maleate 10 mg PO Q6H PRN 07/21/18 [History] raNITIdine HCl [Zantac] 150 mg PO 0730,1630 07/21/18 [History] Amitriptyline [Elavil] 10 mg PO HS 08/30/18 [History] Gabapentin [Neurontin] 600 mg PO TID 08/30/18 [History] Magic Mouthwash [Magic Mouthwash BLM] 10 ml PO QID PRN #240 ml 09/25/18 [Rx] Docusate Sodium [Dok] 100 mg PO DAILY 10/02/18 [History] Guaifenesin [Mucinex] 600 mg PO BID 10/02/18 [History] Omeprazole [PriLOSEC] 20 mg PO DAILY@0730 10/02/18 [History] Ondansetron HCl [Zofran] 4 mg PO Q6H PRN 10/02/18 [History] Oxycodone HCl 15 mg PO TID PRN 10/02/18 [History] Primidone [Mysoline] 50 mg PO BID 10/02/18 [History] Dronabinol [Marinol] 1 tab PO BID 30 Days #60 capsule 10/10/18 [Rx] Lidocaine/Prilocaine [Emla] 1 appl TP AD PRN 10/15/18 [History] Allergy/AdvReac Type Severity Reaction Status Date / Time Penicillins Allergy Anaphylaxis Verified 10/10/18 10:30 atenolol AdvReac Cough Verified 10/10/18 10:30 bupropion [From Wellbutrin] AdvReac Nightmare Verified 10/10/18 10:30 cephalexin [From Keflex] AdvReac Diarrhea Verified 10/10/18 10:30 diphenhydramine AdvReac Insomnia Verified 10/15/18 14:54 [From Benadryl] metronidazole [From Flagyl] AdvReac Diarrhea Verified 10/10/18 10:30 - Meds/Allergy Pre-op Review Medications Reviewed: Yes Allergies Reviewed: Yes Beta Blockers on Current Med List: No Anesthesia Results - Labs 10/17/18 04:31 10/17/18 04:31 Anesthesia Exam Vital Signs/O2 Sat/Glucose, Most Recent Temp Pulse Resp BP Pulse Ox 97.6 F 98 16 105/73 91 10/17/18 12:05 10/17/18 12:05 10/17/18 12:05 10/17/18 12:05 10/17/18 12:05 Weight: KG - BMI 20 NPO (# of Hours): >8 - HEENT Mallampati: I Teeth: Normal Oral Opening: Greater than 3 - Cardiac Rhythm: Regular - Pulmonary Breath Sounds: bilateral Clear Respiratory Effort: Symmetrical Anesthesia Assess/Plan ASA Score: 4 Anesthetic Plan: MAC Monitoring Plan: Standard Monitors Recovery Plan: Other
[2018-10-17] MEDS ORDERED: Lidocaine -MPF 2% 2 ML VIAL ONE (14:35)
[2018-10-17] MEDS ORDERED: *HR* Propofol 200 MG/20 ML VIAL IVP ONE (14:35)
[2018-10-17] MEDS ORDERED: Tetracaine/Benzocaine/Butamben 1 SPRAY AEROSOL MM ONE (14:36)
[2018-10-17] MEDS ORDERED: Simethicone 40 MG/0.6 ML MLS IR ONE (14:36)
--- NOTE | 2018-10-17 15:05 | Palliative Progress Note ---
Date of Encounter: 10/17/18 Time of Encounter: 10:00 - Assessment and plan (1) Cancer associated pain Current Visit: Yes Status: Acute Assessment and plan: Remains NPO - Likely EGD today or tomorrow. Fentanyl patch that was began yesterday was not present on her this am, unknown how long this has been off. Restarted this am. Continue with IV Dilaudid. Monitor. Eventually will transition to po concentrate likely for breakthrough once testing done and further goals established. (2) Anxiety Current Visit: Yes Status: Acute Assessment and plan: Low dose Lorazepam 0.25 IV PRN added today. Monitor and titrate if necessary. (3) Dysphagia Current Visit: Yes Status: Acute Assessment and plan: Likely for EGD today. Qualifiers: Dysphagia type: oropharyngeal phase Qualified Code(s): R13.12 - Dysphagia, oropharyngeal phase (4) Goals of care, counseling/discussion Current Visit: No Status: Acute Assessment and plan: Sister odalys bolivar remains at bedside. She is still concerned about pt son Jonathan being POA - but patient very anxious and not willing to discuss. Patient very upset with any discussion regarding her condition. If EGD negative, with as severly ill Renita is and the extent of her cancer and bony mets, that a PEG at this point would extend her life or provide any comfort. She continues to want to "fight to get better". Depending on outcome of scope, may need to plan meeting with her and family with different discplines involved in her care, so there is a consistent message delivered to her. Adding some low dose Lorazepam for her anxiety today. D/W Jovanna Billingsley, oncology CREW ATTENDANT. (5) Fever of unknown origin Current Visit: Yes Status: Acute (6) Small cell lung cancer Current Visit: Yes Status: Chronic - Time Spent With Patient Total time spent is greater than 50% in coordination of care (as documented) at patient's floor/unit and/or counseling patient: - Subjective Interval history: Patient with less stidorous resp this am, but very anxious. Crying intermittently and becomes agitated with discussion about plan of care. Begins to yell " I just want all this to stop and want to get better and go back to my life". Sister odalys bolivar at bedside providing support. She still is unable to swallow - aspirating all textures and NPO. Bo Coles, Gastroenterology CREW ATTENDANT in to discuss endoscopy. Patient wants to consider prior to signing consent. - Constitutional Vitals: Abnormal lab results WBC 14.7 K/mcL (4.3-11.1) H 10/17/18 04:31 RBC 2.60 M/mcL (3.82-4.97) L 10/17/18 04:31 Hgb 8.5 g/dL (11.5-15.4) L 10/17/18 04:31 Hct 26.3 % (35.3-44.9) L 10/17/18 04:31 MCV 101.2 fL (83.0-100.0) H 10/17/18 04:31 RDW 17.5 % (11.5-14.5) H 10/17/18 04:31 Neutrophils # 11.6 K/mcL (1.6-8.9) H 10/16/18 05:00 PT 13.2 Seconds (9.4-12.1) H 10/15/18 10:42 APTT 61.3 Seconds (26.0-36.0) H 10/15/18 10:42 Sodium 132 mEq/L (136-145) L 10/17/18 04:31 Creatinine 0.31 mg/dL (0.60-1.20) L 10/17/18 04:31 BUN/Creatinine Ratio 29 (6-26) H 10/17/18 04:31 Glucose 140 mg/dL (70-105) H 10/17/18 04:31 Calculated Osmolality 275 (280-300) L 10/17/18 04:31 Phosphorus 2.5 mg/dL (2.7-4.5) L 10/15/18 10:42 Alkaline Phosphatase 196 Units/L (34-104) H 10/15/18 10:42 Urine Clarity Cloudy (Clear) A 10/15/18 11:15 Urine Protein 30 mg/dL (Neg-Trace) H 10/15/18 11:15 Urine Bilirubin Small (Negative) H 10/15/18 11:15 Urine Microscopic WBC 5-15 per hpf (0-3) H 10/15/18 11:15 Ur Squamous Epith Cells Many per lpf (None-Few) H 10/15/18 11:15 Urine Bacteria Many per hpf (None-Few) H 10/15/18 11:15 General appearance: Present: mild distress - Respiratory Respiratory exam: Present: decreased breath sounds Additional comments: Expiratory wheezes throughout - Cardiovascular Cardiovascular exam: Present: +S1, +S2 - GI/Abdominal GI/Abdominal exam: Present: normal bowel sounds, soft - Extremities Exam Extremities exam: Present: normal capillary refill, normal inspection - Neurological Exam Neurological exam: Present: alert, oriented X3, strengths equal and symetr th roughout - Skin Skin exam: Present: dry, warm Palliative Quality Palliative Quality: Screen for Code Status: No (Will eval in am, patient in pain crisis, unable to discuss presently), Screen for Goals of Care: No, Screen for Pain: Yes, If Pain Regimen Started, Initiate Bowel Regimen: Yes, Screen for Nausea/Vomitting: Yes Code Status: 10/15/18 13:57 Resuscitation Status: Active [RES] Routine Comment: Resuscitation Status: Full Code 10/16/18 11:59 CODE [Resuscitation Status: Active] [RES] Routine Comment: Resuscitation Status: [id number] - Labs CBC & Chem 7: 10/17/18 04:31 10/17/18 04:31 Labs: Laboratory Results - last 24 hr 10/17/18 10/17/18 04:31 04:31 WBC 14.7 H RBC 2.60 L Hgb 8.5 L Hct 26.3 L MCV 101.2 H MCH 32.7 MCHC 32.3 RDW 17.5 H Plt Count 330 MPV 9.4 Sodium 132 L Potassium 4.5 Chloride 98 Carbon Dioxide 26 BUN 9 Creatinine 0.31 L Est GFR ( Amer) > 60 Est GFR (Non-Af Amer) > 60 BUN/Creatinine Ratio 29 H Glucose 140 H Calculated Osmolality 275 L Calcium 9.2 - ABG Interpretation ABG results: PT/INR, D-dimer PT 13.2 Seconds (9.4-12.1) H 10/15/18 10:42 Consult Discharge Plan - Plan Referrals: NONE,PCP [Primary Care Provider] -
[2018-10-17] MEDS ORDERED: *HR* LORazepam 2 MG/ML VIAL IVP ONE (17:18)
[2018-10-17] MEDS ORDERED: Gadolinium Contrast Agent (WT Based) IV PRN (17:54)
--- NOTE | 2018-10-17 23:11 | Internal Med Progress Note ---
Hospitalist Progress Note - Encounter Date of Encounter: 10/17/18 Time of Encounter: 19:00 - Subjective Interval History: SUBJECTIVE: The patient continues to have difficulty swallowing. She is scheduled for EGD tomorrow. Her generalized the pain is grossly under control. Denies difficulty breathing. She does have mild cough but not wheezing. Denies nausea and vomiting. She makes good amounts of urine. OBJECTIVE: The patient is very cachectic. Skin: Free of rash and discoloration. ENMT: Oral/pharyngeal mucosa is normal in appearance. Eyes: Sclera is white. There is no discharge from eyes. Respiratory: Normal breath sounds; no crackles or wheezes. CV: Heart is regular; no gallop or murmur. GI: Abdomen is soft and not tender. There is no palpable mass or visceromegaly. Neuro: There is no focal deficits. ADDITIONAL DATA: CBC shows hemoglobin of 8.5 with a WBC of 14.72 thousand and normal platelet count. BMP is normal. ASSESSMENT AND PLAN: Dysphagia. She has history of Schatzkis ring. She has underlying GERD. EGD is scheduled for tomorrow. She may need dilation. Small cell lung cancer with metastasis to liver and bones. This is basically end-stage of that disease. See notes from oncology and radiation oncology. Palliative care is consulted, too. COPD. Stable at this time. To continue when necessary nebulizer treatments with albuterol. Intractable pain. Under fair control. She is on fentanyl patch and Neurontin. He gets when necessary IV Dilaudid injections. Hypertension. Under control. To continue Coreg. Seizure disorder. Under control. To continue Neurontin. DISPOSITION: I am hoping to discharge her home after EGD. - Exam Vitals: Temp Pulse Resp BP Pulse Ox 97.3 F L 102 17 122/86 100 10/17/18 20:29 10/17/18 20:29 10/17/18 20:29 10/17/18 20:29 10/17/18 20:29 Exam: xx - Assessment and Plan (1) Dysphagia Current Visit: Yes Status: Acute (2) GERD (gastroesophageal reflux disease) Current Visit: Yes Status: Acute (3) Small cell lung cancer Current Visit: Yes Status: Chronic (4) COPD (chronic obstructive pulmonary disease) Current Visit: Yes Status: Chronic (5) Intractable pain Current Visit: Yes Status: Acute (6) HTN (hypertension) Current Visit: Yes Status: Chronic (7) Seizure disorder Current Visit: Yes Status: Chronic - Time Spent with Patient Total time spent is greater than 50% in coordination of care (as documented) at patient's floor/unit and/or counseling patient: 25 - 35 minutes Plan of Care Discussed with: patient Internal Medicine: Result - Labs CBC & Chem 7: 10/17/18 04:31 10/17/18 04:31 Labs: Short CBC 10/17/18 Range/Units 04:31 WBC 14.7 H (4.3-11.1) K/mcL Hgb 8.5 L (11.5-15.4) g/dL Hct 26.3 L (35.3-44.9) % Plt Count 330 (140-400) K/mcL BMP 10/17/18 04:31 Sodium 132 L Potassium 4.5 Chloride 98 Carbon Dioxide 26 BUN 9 Creatinine 0.31 L Glucose 140 H Calcium 9.2 - ABG Interpretation ABG results: PT/INR, D-dimer PT 13.2 Seconds (9.4-12.1) H 10/15/18 10:42 Consult Discharge Plan - Plan Referrals: NONE,PCP [Primary Care Provider] - (1) Dysphagia Qualifiers: Dysphagia type: oropharyngeal phase Qualified Code(s): R13.12 - Dysphagia, oropharyngeal phase (2) GERD (gastroesophageal reflux disease) Qualifiers: Esophagitis presence: esophagitis presence not specified Qualified Code(s): K21.9 - Gastro-esophageal reflux disease without esophagitis (4) COPD (chronic obstructive pulmonary disease) Qualifiers: COPD type: unspecified COPD Qualified Code(s): J44.9 - Chronic obstructive pulmonary disease, unspecified (6) HTN (hypertension) Qualifiers: Hypertension type: essential hypertension Qualified Code(s): I10 - Essential (primary) hypertension
[2018-10-18] MEDS: D5% in 0.2% NACL w KCl 1,000 ML IVC SCH ×3 (01:48→08:45)
[2018-10-18] MEDS: Cefepime HCl 2,000 MG in Water for inj. (sterile) 20 ML 20 ML IVP SCH ×3 (05:39→23:09)
[2018-10-18] MEDS: *HR* Heparin 5,000 UNIT/ML VIAL SQ SCH ×2 (05:39→19:10)
[2018-10-18] MEDS: *HR* LORazepam 2 MG/ML VIAL IVP PRN ×3 (06:17→17:00)
[2018-10-18] MEDS: Loratadine 10 MG TABLET PO SCH (08:44)
[2018-10-18] MEDS: Gabapentin 300 MG CAPSULE PO SCH ×3 (08:44→22:08)
[2018-10-18] MEDS: Primidone 50 MG TABLET PO SCH ×2 (08:44→22:08)
[2018-10-18] MEDS: Dexamethasone 4 MG/ML VIAL IVP SCH ×2 (08:44→22:09)
[2018-10-18] MEDS: *HR* HYDROmorphone (PF) 1 MG/ML SYRINGE IVP PRN ×5 (08:54→23:07)
[2018-10-18] MEDS: Levofloxacin 750 MG/150 ML 750 MG/150 ML BAG IVPB SCH (09:01)
[2018-10-18] MEDS: D5% in 0.45% NACL 1,000 ML IVC SCH ×2 (10:41→23:20)
[2018-10-18] MEDS ORDERED: *HR* FentaNYL PATCH 25 MCG PATCH TD SCH (11:00)
--- NOTE | 2018-10-18 11:56 | Oncology Inp Progress Note ---
<Sharon Mcgee S - Last Filed: 10/18/18 18:20> Date of Encounter: 10/18/18 Oncology: Obj Data - Labs CBC & Chem 7: 10/17/18 04:31 10/17/18 04:31 Consult Discharge Plan - Plan Referrals: NONE,PCP [Primary Care Provider] - Inpatient Charges Provider: Dr. Tawana Mcgee Follow up - Inpatient: [id number] - Attending Attestation I examined this patient and my medical decision-making was reviewed with the Advanced Practice Nurse. I agree with the documented findings, disposition and treatment plan as described except to the extent set forth below. 1. Metastatic small cell lung cancer post 4 cycles of carboplatin and etoposide chemotherapy with Atezolizumab. Her clinical condition has deteriorated rapidly in the last week or so. MRI both shoulders demonstrative diffuse bony metastasis. She also has diffuse bony metastasis and bilateral pelvis. She was evaluated by Dr. Mccloud today. She may not Benefit from palliative radiation in terms of pain control. 2. Inspiratory stridor. ENT evaluation noted. 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 She is not interested in tracheostomy . I am not sure if she would be a candidate for cordotomy. Explained the procedure to her and the family members and she is going to think about it. 3. Significant malnourishment. Also significant swallowing problems documented by swallow study. Today she is on nothing by mouth on IV fluids. They understand this is not a long-term solution. Again discussed with them about PEG tube. She has not made a decision on that for her. Overall poor prognosis and family and patient are aware. <Jovanna Baker L - Last Filed: 10/19/18 09:19> Date of Encounter: 10/18/18 Time of Encounter: 11:00 (1) Cancer associated pain Current Visit: Yes Status: Acute Assessment and plan: Palliative following, appreciate recommendations Patient reports widespread bone pain however most significant of her pain is to her pelvic/groin area and right shoulder Pain currently under suboptimal control Plan: She was started on 25 g fentanyl patch, palliative care is increasing dose today Continues to use hydromorphone PRN for breakthrough, palliative care decreasing length of interval Patient reports widespread bone pain however most significant of her pain is to her pelvic/groin area and right shoulder Radiotherapy unlikely to help her diffuse pain (2) Fever of unknown origin Current Visit: Yes Status: Acute Assessment and plan: source unknown peripheral blood culture drawn in ER--pending Added blood culture from port system--pending Cefepime and levaquin started Respiratory infectious panel including influenza negative Urine analysis appears to be contaminated Meeting SIRS criteria on admission with leukocytosis, fever and tachycardia Afebrile since day of admission HR improved with Coreg Echo ordered, trace pericardial effusion with no evidence of echocardiographic tamponade (3) Small cell lung cancer Current Visit: Yes Status: Chronic Assessment and plan: Extensive stage small cell lung cancer. She completed 4 cycles of carboplatin and etoposide with immunotherapy Atezolizumab from cycle 2. She was hospitalized earlier this month and she had the following workup. She had a MRI brain with and without contrast 10/02/2018 was negative for metastasis. Chronic white matter ischemic changes CT neck and chest and abdomen with IV contrast on 10/02/2018 showed thickening of the left aryepiglottic fold. Asymmetric vocal cards with thickening of right vocal cord small hypodensity. CT chest showed unchanged mediastinal bulky adenopathy compared to August 2018. Significant improvement in the liver metastasis. Also diffuse sclerotic metastasis in the skeleton which may indicate treatment response Her mediastinal bulky adenopathy has improved significantly since start of treatment but she still has persistent lymphadenopathy. Initially planned for 1 more cycle of treatment followed with maintenance atezolizumab, however, this will be an ongoing evaluation dependent upon her further monitoring of her current clinical status and response to treatment Malignancy is currently under control s/p treatment as above, although her airway compromise is secondary to her malignancy in looking at overall picture. patient has further more precedent and life threatening issues complicating her care as detailed in HPI and airway compromise section. (4) Airway compromise Current Visit: Yes Status: Acute Assessment and plan: Dysphagia and stridor secondary to bilateral vocal cord paralysis Conversation as detailed further in HPI with Dr. Mccloud, radiation oncology and Sarah Mcgregor, palliative care [employer] Patient understands that airway may be compromised at any time secondary to vocal cord spasm which would result in patients demise She has been given detailed information on options which include emergent trache ostomy placement to prevent airway spasm which would also include PEG tube placement and need for intermediate card tender care vs. less aggressive approach which would include transitioning to full comfort care and hospice Patient is competent to make this decision and currently refuses to make any decision on trach/PEG placement, she wishes for further time to make this decision although knowing that time is very much of the essence. Will continue to follow closely 1600--- Rounded back by to see patient, patients sister in law and brother at bedside. Dr. Friedman also met with patient alongside myself. Patient has not yet reached decision on consent to place tach and PEG. Insertion of Trach would require her to revoke her DNI status. She also has not decided if she is ready to transition to full comfort care. Patient understands that airway is severely compromised and she could suffer laryngeal spasm and at any time. She understands that if she were to go into respiratory distress at any time she would not have chest compressions or mechanical intubation placed. Patient initially questioned her CODE STATUS however by end of her station and full explanation of CODE STATUS she wishes to remain DNR CCA DO NOT INTUBATE. She was advised to let staff know any time if she wishes to make any changes in regards to her CODE STATUS or placement of tracheostomy. Patient and family verbalized understanding Oncology: Subj Interval history: Met with patient and patients family at bedside multiple times today alongside palliative care [employer] Sarah Mcgregor in radiation oncologist Dr. Mccloud. [id number]-We discussed goals of care at length including options for next steps along with the risks and benefits of each option. In brief, patient was evaluated by ENT today and has bilateral vocal cord paralysis that could cause a compromised airway at any time. In order to prevent impeding , tracheostomy is recommended. Patient understands that PEG tube placement and intermediate card tender tube care would be involved with this route of management. Complicating this issue, she has a terminal diagnosis of cancer and understands she has an overall poor prognosis with short projected length of survival. Ms. Youngblood is alert and oriented and competent to make her own deci sions. She is refusing to make a decision in regards to tracheostomy tube placement at this time and stating that she needs more time to make this decision, she wishes to talk things over further with her sister in law, brother at bedside and to call her mother she also requested written information on trach/PEG tube placement which was provided. She also understands that she has the option not to pursue aggressive care and to transition to hospice. We will allow time for patient to weigh options and discuss further with family. She understands that time is of the essence and that airway spasm could occur at any time which would result in . - Constitutional General appearance: cooperative, mild distress, no febrile - Head Head exam: Present: atraumatic - ENT ENT exam: Present: mucous membranes moist, normal oropharynx Additional comments: voice changes/hoarseness - Neck Additional comments: mildly enlarged neck veins - Respiratory Respiratory exam: Present: decreased breath sounds, stridor - Cardiovascular Cardiovascular exam: Present: RRR, +S1, +S2 - GI/Abdominal GI/Abdominal exam: Present: normal bowel sounds, soft. Absent: rebound, tenderness - Extremities Exam Extremities exam: Present: normal inspection. Absent: calf tenderness - Neurological Exam Neurological exam: Present: alert, oriented X3, no focal deficits, strengths equal and symetr throughout - Psychiatric Psychiatric exam: Present: anxious - Skin Skin exam: Present: intact, warm Additional comments: dusky color noted to face/neck Oncology: Obj Data - Labs CBC & Chem 7: 10/19/18 04:40 10/19/18 04:40 Inpatient Charges Provider: Dr. Tawana Mcgee Follow up - Inpatient: [id number]
--- NOTE | 2018-10-18 12:02 | Internal Med Progress Note ---
Hospitalist Progress Note - Encounter Date of Encounter: 10/18/18 Time of Encounter: 09:00 - Subjective Interval History: Patient still weak. Cannot have by mouth diet because of failed swallow evaluation and dysphagia. No fever. Has stridor and hoarseness. - Exam Vitals: Temp Pulse Resp BP Pulse Ox 97.7 F 85 17 107/74 99 10/18/18 11:13 10/18/18 11:13 10/18/18 11:13 10/18/18 11:13 10/18/18 11:13 Exam: Pt is AAO x 3, in NAD, cachectic HEENT: NC/AT, PERRL Neck: Supple, JVD with upper body vein varicosis Lungs: CTA b/l, inspiration stridor Heart: S1S2, RRR Abd: Soft, nontender, BS present Ext: ROM wnl, no pedal edema Neuro: No focal deficit - Assessment and Plan (1) Intractable pain Current Visit: Yes Status: Acute Assessment and Plan: Cont pain management. Palliative consult appreciated. (2) Small cell lung cancer Current Visit: Yes Status: Chronic Assessment and Plan: 53 year old female with end stage small cell lung cancer diagnosed about 5 months ago, already undertaken 5 rounds of chemo and immunotherapy, presented with intractable pain, weakness, and disphargia. - With known metastasis to bone, cervical lymph nodes, and liver. Prognosis is poor. - Patient still wants treatment at this point. - Oncology consult appreciated. - PT/OT (3) Dysphagia Current Visit: Yes Status: Acute Assessment and Plan: Failed swallow evaluation. EGD has been done, no stricture/obstruction identified. Patient also has stridor and hoarseness. Highly suspect recurrent laryngeal nerve compression caused by lung cancer. - We will consult ENT - Patient may need tube feeding, she is considering it. Will consider temporarily TPN before patient makes a decision regarding PEG tube, animal husbandman was counseled. (4) Seizure disorder Current Visit: Yes Status: Chronic Assessment and Plan: Continue home medications. (5) HTN (hypertension) Current Visit: Yes Status: Chronic Assessment and Plan: Continue home medications (6) COPD (chronic obstructive pulmonary disease) Current Visit: Yes Status: Chronic Assessment and Plan: No signs of exacerbation. Continue albuterol inhaler when necessary. (7) GERD (gastroesophageal reflux disease) Current Visit: Yes Status: Acute Assessment and Plan: Continue by mouth omeprazole. DVT Prophylaxis: Heparin SQ - Time Spent with Patient Total time spent is greater than 50% in coordination of care (as documented) at patient's floor/unit and/or counseling patient: 30 min 25 - 35 minutes Plan of Care Discussed with: patient Internal Medicine: Result - Labs CBC & Chem 7: 10/17/18 04:31 10/17/18 04:31 - ABG Interpretation ABG results: PT/INR, D-dimer PT 13.2 Seconds (9.4-12.1) H 10/15/18 10:42 - Impressions Impressions Head MRI 10/18/18 09:00 IMPRESSION: No abnormal enhancement within the brain to suggest intracranial metastatic disease. Stable minimal chronic microvascular disease within the periventricular white matter. Partially empty sella. D/ / 10/18/2018 09:02:05 Stuart Parkinson MD / [facility] Interpreting Provider: Stuart Parkinson MD Shoulder MRI 10/18/18 09:00 IMPRESSION: 1. Diffuse signal abnormality throughout the majority of the visualized osseous structures consistent with bony metastatic disease. 2. Mild supraspinatus, infraspinatus and subscapularis tendinopathy. Mild edema in the rotator cuff musculature surrounding the scapula likely secondary to bony metastatic lesions and periosteal edema. 3. Mild degenerative changes of the left AC joint. 4. No partial or full thickness rotator cuff tear. D/ / 10/18/2018 09:08:15 Giovanni Doss MD / [facility] Interpreting Provider: Giovanni Doss MD Shoulder MRI 10/18/18 09:00 IMPRESSION: Limited evaluation secondary to significant patient motion artifact on all sequences. Diffuse bony metastatic disease noted. No fractures are seen. Mild tendinosis to the supraspinatus tendon without definite evidence for rotator cuff tear. Mild degenerative changes to the AC joint along with mild narrowing of acromiohumeral interval. Findings could be contributing to impingement symptoms in the appropriate clinical setting. D/ / 10/18/2018 08:59:48 Devonte Avila MD / [facility] Interpreting Provider: Devonte Avila MD Consult Discharge Plan - Plan Referrals: NONE,PCP [Primary Care Provider] - ____ (3) Dysphagia Qualifiers: Qualified Code(s): R13.12 - Dysphagia, oropharyngeal phase (5) HTN (hypertension) Qualifiers: Qualified Code(s): I10 - Essential (primary) hypertension (6) COPD (chronic obstructive pulmonary disease) Qualifiers: Qualified Code(s): J44.9 - Chronic obstructive pulmonary disease, unspecified (7) GERD (gastroesophageal reflux disease) Qualifiers: Qualified Code(s): K21.9 - Gastro-esophageal reflux disease without esophagitis
--- NOTE | 2018-10-18 12:40 | ENT - Consult Note ---
<Betzaida Alarcon - Last Filed: 10/18/18 13:11> Date of Encounter: 10/18/18 Time of Encounter: 12:00 Assessment and Plan (1) Vocal cord paralysis, bilateral complete Current Visit: Yes Status: Acute Patient seen and examined at bedside today. Nasolaryngoscopy completed today which demonstrated complete bilateral vocal cord paralysis. Due to bilateral vocal cord paralysis it was discussed with patient that this is causing significant airway compromise and recommend tracheostomy procedure at this time. Patient states she is uncertain of whether to have procedure performed and would like time for consideration. Stressed to patient the urgency and emergency of the airway compromise of decision for tracheostomy placement. Patient has decision making ability. Patient continues to refuse tracheostomy placement at this time despite extensive explanation of significant risks including . If patient continues to experience worsening stridor recommend BIPAP for continued airway support. If the patient decides to proceed with trach, then prior to surgical intervention, the patient will need to change code status to remove DNI status. (2) Airway compromise Current Visit: Yes Status: Acute NPL demonstrated bilateral vocal cord paralysis. Plan as noted above. (3) Dysphagia Current Visit: Yes Status: Acute Reviewed the MBS report. Recommend NPO and PEG tube placement. Qualifiers: Dysphagia type: unspecified Qualified Code(s): R13.10 - Dysphagia, unspecified (4) Small cell lung cancer Current Visit: Yes Status: Chronic Per Oncology notes, patient status appears to be end stage. The patient is currently considering palliative care but has not made decision. Current code status is DNR CCA/DNI History of Present Illness Consult date: 10/18/18 Reason for ENT Consult: airway complication, other (increased stridor, dysphagia, and hoarseness) Requesting physician: Chin Hanna History of present illness: This is a 53 y/o F with history of advanced staged Small Cell Lung Cancer who was admitted for increased bone pain and respiratory distress. Patient currently undergoing chemo with last chemo approximately 2 weeks ago. ENT is being consulted for dysphagia and respiratory distress. Patient currently denies any air hunger or difficulty controlling secretions. She does report increased breathiness of voice, decreased phonation time, dysphagia, and increased noisy breathing. Symptoms began [address] scan completed on 10/16/18 IMPRESSION: 1. Motion artifact on CT soft tissue neck blurs detail. 2. No acute abnormality of the soft tissue structures of the neck; specifically, there is nonvisualization of the nodular lesion described right vocal cord on recent prior study which may simply be blurred by motion. 3. Unchanged malignancy in the chest and bones. 4. Stable marked dilatation of the main pulmonary artery concerning for pulmonary hypertension. 5. Emphysema. 6. Bibasilar subsegmental atelectasis or pneumonitis with associated small volume bilateral pleural effusion. Past Med Surg Social Fam HX - Past Medical History Medical history: cancer, COPD, GERD, hypertension, other Additional medical history: Epilepsy Psychiatric history: anxiety, depression - Past Surgical History Surgical History: hysterectomy Additional surgical history: nose reconstruction, tubal ligation - Social History Smoking Status: Current every day smoker Smokeless Tobacco Status: No Alcohol use: none Drug use: none - Family History Father Living Status: Hx Family Cancer: Yes (lung) Mother Living Status: Still Living Hx Family Cardiac Disorders: Yes Hx Family Respiratory Disorders: Yes Hx Family Cancer: Yes (breast) Hx Family Endocrine Disorder: Yes Hx Family Neurologic Disorders: No Medications and Allergies RX: Loratadine [Claritin] 10 mg PO DAILY 10/25/15 [History] RX: Acetaminophen [Tylenol] 1,000 mg PO Q6H PRN 07/21/18 [History] RX: Albuterol Neb [AccuNeb] 0.63 mg IH BID PRN 07/21/18 [History] RX: Albuterol Sulfate [Proair Hfa] 2 puff IH Q4H PRN 07/21/18 [History] RX: Cyclobenzaprine [Flexeril] 10 mg PO DAILY PRN 07/21/18 [History] RX: Prochlorperazine Maleate 10 mg PO Q6H PRN 07/21/18 [History] RX: raNITIdine HCl [Zantac] 150 mg PO 0730,1630 07/21/18 [History] RX: Amitriptyline [Elavil] 10 mg PO HS 08/30/18 [History] RX: Gabapentin [Neurontin] 600 mg PO TID 08/30/18 [History] RX: Magic Mouthwash [Magic Mouthwash BLM] 10 ml PO QID PRN #240 ml 09/25/18 [Rx] RX: Docusate Sodium [Dok] 100 mg PO DAILY 10/02/18 [History] RX: Guaifenesin [Mucinex] 600 mg PO BID 10/02/18 [History] RX: Omeprazole [PriLOSEC] 20 mg PO DAILY@0730 10/02/18 [History] RX: Ondansetron HCl [Zofran] 4 mg PO Q6H PRN 10/02/18 [History] RX: Oxycodone HCl 15 mg PO TID PRN 10/02/18 [History] RX: Primidone [Mysoline] 50 mg PO BID 10/02/18 [History] Dronabinol [Marinol] 1 tab PO BID 30 Days #60 capsule 10/10/18 [Rx] RX: Lidocaine/Prilocaine [Emla] 1 appl TP AD PRN 10/15/18 [History] Allergy/AdvReac Type Severity Reaction Status Date / Time Penicillins Allergy Anaphylaxis Verified 10/10/18 10:30 atenolol AdvReac Cough Verified 10/10/18 10:30 bupropion [From Wellbutrin] AdvReac Nightmare Verified 10/10/18 10:30 cephalexin [From Keflex] AdvReac Diarrhea Verified 10/10/18 10:30 diphenhydramine AdvReac Insomnia Verified 10/15/18 14:54 [From Benadryl] metronidazole [From Flagyl] AdvReac Diarrhea Verified 10/10/18 10:30 ENT - ROS - EENT Nose, mouth and throat: change in voice, dysphagia, hoarseness, other (increased stridor) ENT Exam Initial Vital Signs Temp Pulse Resp BP Pulse Ox 100.0 F H 137 19 106/81 96 10/15/18 10:40 10/15/18 10:40 10/15/18 10:40 10/15/18 10:40 10/15/18 10:40 - General physical appearance no distress - Eyes PERRL, normal ocular movement - ENT normal pinna, normal nares, CN 2-12 grossly intact, Other (ORAL: patient is edentulous and has oral thrush NOSE: mid septal perforation Larynx: see procedure portion for nasolaryngoscopy findings) - Neck trachea midline, no lymphadectomy - Respiratory other (auditory stridor) - Neurologic CN 2-12 grossly intact, normal coordination, normal sensation - Psychiatric oriented to time, oriented to person, oriented to place, other (anxious and tearful) Exam Initial Vital Signs Temp Pulse Resp BP Pulse Ox 100.0 F H 137 19 106/81 96 10/15/18 10:40 10/15/18 10:40 10/15/18 10:40 10/15/18 10:40 10/15/18 10:40 Results - Labs 10/17/18 04:31 10/17/18 04:31 Abnormal lab results WBC 14.7 K/mcL (4.3-11.1) H 10/17/18 04:31 RBC 2.60 M/mcL (3.82-4.97) L 10/17/18 04:31 Hgb 8.5 g/dL (11.5-15.4) L 10/17/18 04:31 Hct 26.3 % (35.3-44.9) L 10/17/18 04:31 MCV 101.2 fL (83.0-100.0) H 10/17/18 04:31 RDW 17.5 % (11.5-14.5) H 10/17/18 04:31 Neutrophils # 11.6 K/mcL (1.6-8.9) H 10/16/18 05:00 PT 13.2 Seconds (9.4-12.1) H 10/15/18 10:42 APTT 61.3 Seconds (26.0-36.0) H 10/15/18 10:42 Sodium 132 mEq/L (136-145) L 10/17/18 04:31 Creatinine 0.31 mg/dL (0.60-1.20) L 10/17/18 04:31 BUN/Creatinine Ratio 29 (6-26) H 10/17/18 04:31 Glucose 140 mg/dL (70-105) H 10/17/18 04:31 Calculated Osmolality 275 (280-300) L 10/17/18 04:31 Phosphorus 2.5 mg/dL (2.7-4.5) L 10/15/18 10:42 Alkaline Phosphatase 196 Units/L (34-104) H 10/15/18 10:42 Urine Clarity Cloudy (Clear) A 10/15/18 11:15 Urine Protein 30 mg/dL (Neg-Trace) H 10/15/18 11:15 Urine Bilirubin Small (Negative) H 10/15/18 11:15 Urine Microscopic WBC 5-15 per hpf (0-3) H 10/15/18 11:15 Ur Squamous Epith Cells Many per lpf (None-Few) H 10/15/18 11:15 Urine Bacteria Many per hpf (None-Few) H 10/15/18 11:15 All other labs normal. Consult Discharge Plan - Plan Referrals: NONE,PCP [Primary Care Provider] - <Shay Friedman R - Last Filed: 10/18/18 15:08> Date of Encounter: 10/18/18 Assessment and Plan (1) Small cell lung cancer Current Visit: Yes Status: Chronic (2) Vocal cord paralysis, bilateral complete Current Visit: Yes Status: Acute (3) Airway compromise Current Visit: Yes Status: Acute (4) Dysphagia Current Visit: Yes Status: Acute Qualifiers: Dysphagia type: unspecified Qualified Code(s): R13.10 - Dysphagia, unspecified ENT Exam Initial Vital Signs Temp Pulse Resp BP Pulse Ox 100.0 F H 137 19 106/81 96 10/15/18 10:40 10/15/18 10:40 10/15/18 10:40 10/15/18 10:40 10/15/18 10:40 Exam Initial Vital Signs Temp Pulse Resp BP Pulse Ox 100.0 F H 137 19 106/81 96 10/15/18 10:40 10/15/18 10:40 10/15/18 10:40 10/15/18 10:40 10/15/18 10:40 Results - Labs 10/17/18 04:31 10/17/18 04:31 Abnormal lab results WBC 14.7 K/mcL (4.3-11.1) H 10/17/18 04:31 RBC 2.60 M/mcL (3.82-4.97) L 10/17/18 04:31 Hgb 8.5 g/dL (11.5-15.4) L 10/17/18 04:31 Hct 26.3 % (35.3-44.9) L 10/17/18 04:31 MCV 101.2 fL (83.0-100.0) H 10/17/18 04:31 RDW 17.5 % (11.5-14.5) H 10/17/18 04:31 Neutrophils # 11.6 K/mcL (1.6-8.9) H 10/16/18 05:00 PT 13.2 Seconds (9.4-12.1) H 10/15/18 10:42 APTT 61.3 Seconds (26.0-36.0) H 10/15/18 10:42 Sodium 132 mEq/L (136-145) L 10/17/18 04:31 Creatinine 0.31 mg/dL (0.60-1.20) L 10/17/18 04:31 BUN/Creatinine Ratio 29 (6-26) H 10/17/18 04:31 Glucose 140 mg/dL (70-105) H 10/17/18 04:31 Calculated Osmolality 275 (280-300) L 10/17/18 04:31 Phosphorus 2.5 mg/dL (2.7-4.5) L 10/15/18 10:42 Alkaline Phosphatase 196 Units/L (34-104) H 10/15/18 10:42 Urine Clarity Cloudy (Clear) A 10/15/18 11:15 Urine Protein 30 mg/dL (Neg-Trace) H 10/15/18 11:15 Urine Bilirubin Small (Negative) H 10/15/18 11:15 Urine Microscopic WBC 5-15 per hpf (0-3) H 10/15/18 11:15 Ur Squamous Epith Cells Many per lpf (None-Few) H 10/15/18 11:15 Urine Bacteria Many per hpf (None-Few) H 10/15/18 11:15 All other labs normal. - Attending Attestation This patient was seen and examined independent of the nurse practiontioner. This is a 53 y/o F with history of AJCC Clinical Stage IV Small Cell Lung Cancer who is status spot chemoimmunotherapy, who was admitted for bone pain and respiratory distress. ENT is being consult for respiratory distress. The patient relays a five-day history of having noisy breathing but denies any significant air hunger. She states that the noisy breathing is occurring on both the inspiratory and expiratory phases. NPL scope demonstrated bilateral vocal cord paralysis were the vocal cords were completely immobile and in a near-median position significantly compromising the airway. On physical exam, the patient does have intermittent biphasic stridor. Her voice is breathy and weak. She is not tripoding currently. She is on oxygen via nasal cannula. I discussed with the patient that at this time I do believe that we need to urgently secure her airway in the Operating Room with tracheostomy tube placement. I discussed with the patient that if we do not secure her airway, there is risk of further airway compromise leading to worsening respiratory distress and possibly . At this time, the patient refuses tracheostomy tube placement despite the risks that were explained to her in detail. Currently, the patient is DNRCCA/DNI and she understands that if her airway were to close, no extreme measures would be undertaken to secure her airway such as intubation, beside trach, or cricothyroidotomy. ENT will sign off as surgical intervention is refused by patient.
[2018-10-18] MEDS ORDERED: *HR* FentaNYL PATCH 50 MCG PATCH TD SCH ×2 (14:15→15:00)
--- NOTE | 2018-10-18 14:15 | Rad Onc Consult Note ---
Radiation Oncology HPI - Oncology history Comments: 53-year-old female presents with an AJCC clinical stage IV small cell lung cancer status post chemoimmunotherapy. MR brain negative. CT scans show response in the bones, liver, and lung. Date: 10/18/18 Primary Care Provider: PCP NONE History of present illness: 53-year-old female presents with an AJCC clinical stage IV small cell lung cancer status post chemoimmunotherapy. MR brain negative. CT scans show response in the bones, liver, and lung. She now has bilateral vocal cord paralysis and stridor as well as aspiration pneumonia. She denies a history of radiotherapy and of cancer. She is trying to make decisions regarding goals of care and aggressiveness of management of sequelae of cancer and therapy at this time. Code Status: Full Code Past Medical History: GERD, hypertension Surgical History: hysterectomy Hospitalization facilities, dates and reasons: Pt. was in the hospital in Sep 2018 overnight and had hydration and testing Smoking Status: Current every day smoker Smokeless Tobacco Status: No Alcohol use: none Drug use: none Family History -Oncology: cancer Oncology - Medications Loratadine [Claritin] 10 mg PO DAILY 10/25/15 [History] Acetaminophen [Tylenol] 1,000 mg PO Q6H PRN 07/21/18 [History] Albuterol Neb [AccuNeb] 0.63 mg IH BID PRN 07/21/18 [History] Albuterol Sulfate [Proair Hfa] 2 puff IH Q4H PRN 07/21/18 [History] Cyclobenzaprine [Flexeril] 10 mg PO DAILY PRN 07/21/18 [History] Prochlorperazine Maleate 10 mg PO Q6H PRN 07/21/18 [History] raNITIdine HCl [Zantac] 150 mg PO 0730,1630 07/21/18 [History] Amitriptyline [Elavil] 10 mg PO HS 08/30/18 [History] Gabapentin [Neurontin] 600 mg PO TID 08/30/18 [History] Magic Mouthwash [Magic Mouthwash BLM] 10 ml PO QID PRN #240 ml 09/25/18 [Rx] Docusate Sodium [Dok] 100 mg PO DAILY 10/02/18 [History] Guaifenesin [Mucinex] 600 mg PO BID 10/02/18 [History] Omeprazole [PriLOSEC] 20 mg PO DAILY@0730 10/02/18 [History] Ondansetron HCl [Zofran] 4 mg PO Q6H PRN 10/02/18 [History] Oxycodone HCl 15 mg PO TID PRN 10/02/18 [History] Primidone [Mysoline] 50 mg PO BID 10/02/18 [History] Dronabinol [Marinol] 1 tab PO BID 30 Days #60 capsule 10/10/18 [Rx] Lidocaine/Prilocaine [Emla] 1 appl TP AD PRN 10/15/18 [History] Allergy/AdvReac Type Severity Reaction Status Date / Time Penicillins Allergy Anaphylaxis Verified 10/10/18 10:30 atenolol AdvReac Cough Verified 10/10/18 10:30 bupropion [From Wellbutrin] AdvReac Nightmare Verified 10/10/18 10:30 cephalexin [From Keflex] AdvReac Diarrhea Verified 10/10/18 10:30 diphenhydramine AdvReac Insomnia Verified 10/15/18 14:54 [From Benadryl] metronidazole [From Flagyl] AdvReac Diarrhea Verified 10/10/18 10:30 Review of Systems Provider Comments: A 12 point review of systems was performed. Pertinent positives and negatives are listed below and in the history of present illness. All other systems negative. General/Constitutional: Night Sweats, Fatigue Cardio/Pulmonary: Dyspnea, Dyspnea at Night, Dyspnea with Exertion Musculoskeletal: Bone Pain Hematological/Lymphatic: Enlarged Lymph Nodes Physical Exam - Vitals Vital Signs: Last Vital Signs Temp 97.7 F 10/18/18 11:13 Pulse 85 10/18/18 11:13 Resp 17 10/18/18 11:13 BP 107/74 10/18/18 11:13 Pulse Ox 99 10/18/18 11:13 Weight: 54.8 kg ECO - Consciousness/Orientation Level Of Consciousness: Awake, Alert, Appropriate Patient Orientation: Person, Name, Date of Physical Exam: General: Alert and oriented, intermittent stridor. Mental Status: Affect appropriate for circumstances HEENT: Sclerae anicteric. No mucositis or thrush. No other oral lesions or erythema. Skin: No rashes or petechiae. Lymph nodes: No cervical, supraclavicular, axillary, or inguinal adenopathy. Abdomen: Soft, nontender; no organomegaly or masses palpable. Extremities: No edema. No calf swelling or tenderness. No joint deformity. Neurologic: Alert, cranial nerves II-XII intact; no focal weakness or sensory abnormalities. Oncology- Results - Labs Labs: 10/17/18 10/17/18 10/17/18 22:25 04:31 04:31 WBC 14.7 H RBC 2.60 L Hgb 8.5 L Hct 26.3 L MCV 101.2 H MCH 32.7 MCHC 32.3 RDW 17.5 H Plt Count 330 MPV 9.4 Immature Gran % Seg Neutrophils % Lymphocytes % Monocytes % Eosinophils % Basophils % Neutrophils # Lymphocytes # Monocytes # Eosinophils # Basophils # PT INR APTT Sodium 132 L Potassium 4.5 Chloride 98 Carbon Dioxide 26 BUN 9 Creatinine 0.31 L Est GFR ( Amer) > 60 Est GFR (Non-Af Amer) > 60 BUN/Creatinine Ratio 29 H Glucose 140 H Calculated Osmolality 275 L Lactic Acid 1.4 Calcium 9.2 Phosphorus Magnesium Total Bilirubin Direct Bilirubin Indirect Bilirubin AST ALT Alkaline Phosphatase Serum Total Protein Albumin Globulin Albumin/Globulin Ratio Urine Color Urine Clarity Urine pH Ur Specific [place] Urine Protein Urine Glucose (UA) Urine Ketones Urine Blood Urine Nitrite Urine Bilirubin Urine Urobilinogen Ur Leukocyte Esterase Urine Microscopic RBC Urine Microscopic WBC Ur Squamous Epith Cells Urine Bacteria Hyaline Casts Ur Culture Indicated? Chlamy pneumoniae PCR Adenovirus (PCR) B. pertussis DNA (PCR) B.parapertussis DNA PCR Coronavirus OC43 (PCR) Coronavirus HKU1 (PCR) Coronavirus 229E (PCR) Coronavirus NL63 (PCR) Human Metapneumovir PCR Influenza A (H1) PCR Influ A (H1N1/09) PCR Influenza A (H3) PCR Influenza A Untype (PCR) Influenza Type B (PCR) M.pneumoniae DNA (PCR) Parainfluenza 1 (PCR) Parainfluenza 2 (PCR) Parainfluenza 3 (PCR) Parainfluenza 4 (PCR) RSV (PCR) Entero/Rhino (PCR) 10/16/18 10/16/18 10/15/18 05:00 05:00 17:15 WBC 13.8 H RBC 2.58 L Hgb 8.6 L Hct 26.6 L MCV 103.1 H MCH 33.3 MCHC 32.3 RDW 18.3 H Plt Count 302 MPV 9.2 L Immature Gran % 2.5 Seg Neutrophils % 84.4 Lymphocytes % 6.2 Monocytes % 6.6 Eosinophils % 0.1 Basophils % 0.2 Neutrophils # 11.6 H Lymphocytes # 0.9 Monocytes # 0.9 Eosinophils # 0.0 Basophils # 0.0 PT INR APTT Sodium 132 L Potassium 4.2 Chloride 99 Carbon Dioxide 25 BUN 10 Creatinine 0.34 L Est GFR ( Amer) > 60 Est GFR (Non-Af Amer) > 60 BUN/Creatinine Ratio 29 H Glucose 138 H Calculated Osmolality 275 L Lactic Acid Calcium 8.9 Phosphorus Magnesium Total Bilirubin Direct Bilirubin Indirect Bilirubin AST ALT Alkaline Phosphatase Serum Total Protein Albumin Globulin Albumin/Globulin Ratio Urine Color Urine Clarity Urine pH Ur Specific [place] Urine Protein Urine Glucose (UA) Urine Ketones Urine Blood Urine Nitrite Urine Bilirubin Urine Urobilinogen Ur Leukocyte Esterase Urine Microscopic RBC Urine Microscopic WBC Ur Squamous Epith Cells Urine Bacteria Hyaline Casts Ur Culture Indicated? Chlamy pneumoniae PCR Not Detected Adenovirus (PCR) Not Detected B. pertussis DNA (PCR) Not Detected B.parapertussis DNA PCR Not Detected Coronavirus OC43 (PCR) Not Detected Coronavirus HKU1 (PCR) Not Detected Coronavirus 229E (PCR) Not Detected Coronavirus NL63 (PCR) Not Detected Human Metapneumovir PCR Not Detected Influenza A (H1) PCR Not Detected Influ A (H1N1/09) PCR Not Detected Influenza A (H3) PCR Not Detected Influenza A Untype (PCR) Not Detected Influenza Type B (PCR) Not Detected M.pneumoniae DNA (PCR) Not Detected Parainfluenza 1 (PCR) Not Detected Parainfluenza 2 (PCR) Not Detected Parainfluenza 3 (PCR) Not Detected Parainfluenza 4 (PCR) Not Detected RSV (PCR) Not Detected Entero/Rhino (PCR) Not Detected 10/15/18 10/15/18 10/15/18 15:14 11:15 11:04 WBC RBC Hgb Hct MCV MCH MCHC RDW Plt Count MPV Immature Gran % Seg Neutrophils % Lymphocytes % Monocytes % Eosinophils % Basophils % Neutrophils # Lymphocytes # Monocytes # Eosinophils # Basophils # PT INR APTT Sodium Potassium Chloride Carbon Dioxide BUN Creatinine Est GFR ( Amer) Est GFR (Non-Af Amer) BUN/Creatinine Ratio Glucose Calculated Osmolality Lactic Acid 1.3 2.4 H Calcium Phosphorus Magnesium Total Bilirubin Direct Bilirubin Indirect Bilirubin AST ALT Alkaline Phosphatase Serum Total Protein Albumin Globulin Albumin/Globulin Ratio Urine Color Dark Yellow Urine Clarity Cloudy A Urine pH 6.5 Ur Specific [place] 1.023 Urine Protein 30 H Urine Glucose (UA) Normal Urine Ketones Negative Urine Blood Negative Urine Nitrite Negative Urine Bilirubin Small H Urine Urobilinogen Normal Ur Leukocyte Esterase Negative Urine Microscopic RBC 0-3 Urine Microscopic WBC 5-15 H Ur Squamous Epith Cells Many H Urine Bacteria Many H Hyaline Casts Few Ur Culture Indicated? NO Chlamy pneumoniae PCR Adenovirus (PCR) B. pertussis DNA (PCR) B.parapertussis DNA PCR Coronavirus OC43 (PCR) Coronavirus HKU1 (PCR) Coronavirus 229E (PCR) Coronavirus NL63 (PCR) Human Metapneumovir PCR Influenza A (H1) PCR Influ A (H1N1/09) PCR Influenza A (H3) PCR Influenza A Untype (PCR) Influenza Type B (PCR) M.pneumoniae DNA (PCR) Parainfluenza 1 (PCR) Parainfluenza 2 (PCR) Parainfluenza 3 (PCR) Parainfluenza 4 (PCR) RSV (PCR) Entero/Rhino (PCR) 10/15/18 10/15/18 10/15/18 10:42 10:42 10:42 WBC 14.4 H D RBC 2.81 L Hgb 9.3 L Hct 28.5 L MCV 101.4 H MCH 33.1 MCHC 32.6 RDW 18.2 H Plt Count 307 MPV 9.0 L Immature Gran % 1.9 Seg Neutrophils % 86.2 Lymphocytes % 5.1 Monocytes % 6.6 Eosinophils % 0.0 Basophils % 0.2 Neutrophils # 12.4 H Lymphocytes # 0.7 Monocytes # 1.0 Eosinophils # 0.0 Basophils # 0.0 PT 13.2 H INR 1.2 APTT 61.3 H Sodium 132 L Potassium 4.0 Chloride 96 L Carbon Dioxide 27 BUN 11 Creatinine 0.41 L Est GFR ( Amer) > 60 Est GFR (Non-Af Amer) > 60 BUN/Creatinine Ratio 27 H Glucose 129 H Calculated Osmolality 275 L Lactic Acid Calcium 9.1 Phosphorus 2.5 L Magnesium 2.0 Total Bilirubin 0.4 Direct Bilirubin 0.1 Indirect Bilirubin 0.3 AST 24 ALT 14 Alkaline Phosphatase 196 H Serum Total Protein 7.1 Albumin 3.7 Globulin 3.4 Albumin/Globulin Ratio 1.1 Urine Color Urine Clarity Urine pH Ur Specific [place] Urine Protein Urine Glucose (UA) Urine Ketones Urine Blood Urine Nitrite Urine Bilirubin Urine Urobilinogen Ur Leukocyte Esterase Urine Microscopic RBC Urine Microscopic WBC Ur Squamous Epith Cells Urine Bacteria Hyaline Casts Ur Culture Indicated? Chlamy pneumoniae PCR Adenovirus (PCR) B. pertussis DNA (PCR) B.parapertussis DNA PCR Coronavirus OC43 (PCR) Coronavirus HKU1 (PCR) Coronavirus 229E (PCR) Coronavirus NL63 (PCR) Human Metapneumovir PCR Influenza A (H1) PCR Influ A (H1N1/09) PCR Influenza A (H3) PCR Influenza A Untype (PCR) Influenza Type B (PCR) M.pneumoniae DNA (PCR) Parainfluenza 1 (PCR) Parainfluenza 2 (PCR) Parainfluenza 3 (PCR) Parainfluenza 4 (PCR) RSV (PCR) Entero/Rhino (PCR) - Assessment Assessment: 53-year-old female presents with an AJCC clinical stage IV small cell lung cancer status post chemoimmunotherapy. MR brain negative. CT scans show response in the bones, liver, and lung. She has diffuse pain. Pain being managed with palliative care input. Radiotherapy unlikely to help her diffuse pain. Patient has a goal of returning home to be with her grandchildren. Patient has risk of sudden with her laryngeal spasms/vocal cord dysfu nction. Patient cannot tolerate anything via mouth per swallowing study. In order for patient to have significant longevity, she would require PEG/trach. This would only likely gain an additional few months of life given the diffuse nature of her cancer. This was discussed with patient and family. Care required for both of these appliances would likely require long-term nursing care and/or home assistance. Patient was counseled that likelihood of returning home with good quality of life was less if procedures of PEG/trach were undertaken. Patient is going to weigh her options and decide tomorrow. Risk of sudden in the interim was outlined in detail. Thank you for allowing me to participate in the care of Ms. Youngblood. Sincerely, Jorge Mccloud MD Radiation Oncology [facility]
--- NOTE | 2018-10-18 14:16 | Palliative Progress Note ---
Date of Encounter: 10/18/18 Time of Encounter: 13:15 - Assessment and plan (1) Cancer associated pain Current Visit: Yes Status: Acute Assessment and plan: She is still very uncomfortable.. WIll increase Fentanyl patch to 50mcg today and continue IV Hydromorphone for breakthrough pain. (2) Anxiety Current Visit: Yes Status: Acute Assessment and plan: Continue low dose IV Lorazepam PRN. Utilized x3 last 24 hours (3) Dysphagia Current Visit: Yes Status: Acute Assessment and plan: EGD with no findings of obstruction - however, ENT exam with vocal cord paralysis. Patient undecided on trach /PEG. I have spoke with Bo Coles, [facility] today and updated him on clinical course. Qualifiers: Dysphagia type: oropharyngeal phase Qualified Code(s): R13.12 - Dysphagia, oropharyngeal phase (4) Goals of care, counseling/discussion Current Visit: No Status: Acute Assessment and plan: Patient has had extensive meetings with ENT/Oncology representatives this am. She has been told and explained regarding her vocal cord paralysis and pending airway obstruction. She was presented with option of tracheostomy by ENT, also discussed with Dr. Mccloud. Patient has yet to make a decision or give consent for this procedure. she demanded time to think about it, and also wanted literature/pamphlets on these procedures. These were obtained and given to patient and family. Patient's brother and sister n law were present for these conversations as well. Patient has been told by myself as well as ENT, that her airway could potentially close off/spasm at any time that could cause her . She is currently DNR/DNI and did not want intubated. I revisited the patient about 30 min after above conversations took place, and she has yet to review procedures or make a decision. Sister states that brother went to "get the title to her car so she can sign it over". Sister states that pt stated if she , she did not want estranged to take anything from her. Patient's son Jonathan was here last pm, and sister states that she d/w Jonathan how hill patient is and not likely to survive long. Will continue to follow closely Update - I revisited patient again at 1530 - she states she has still not made a decision and asking if she can just eat something now. I explained again that anything she eats will likely go into her airways. Explained that she needs to decide soon between trach/PEG and she would be given tube feedings for nutrition, or transitioning to DNRCC and comfort care only - where she could try to eat, but has to understand that she could have spasm and airway close off, and anything she attempted to eat would likely result in respiratory distress and aspiration pneumonia. They only thing we could do at that point is keep her comfortable. She asked "what is a 3rd option", and I stated to her there was no third option. She verbalized understanding. Sister states they will continue to discuss. (5) Fever of unknown origin Current Visit: Yes Status: Acute (6) Small cell lung cancer Current Visit: Yes Status: Chronic - Time Spent With Patient Total time spent is greater than 50% in coordination of care (as documented) at patient's floor/unit and/or counseling patient: - Subjective Interval history: Multiple disciplines in to meet with patient today - including hospitalist, Dr. Mccloud/radiation oncology, Dr. Friedman/ENT, myself. She has been given information from ENT/Oncology regarding vocal cord paralysis likely related to nerve damage from cancer. She is c/o hip and leg pain today, states this is not improved. Anxious and tearful - becomes agitated at times with much discussion. - Constitutional Vitals: Abnormal lab results WBC 14.7 K/mcL (4.3-11.1) H 10/17/18 04:31 RBC 2.60 M/mcL (3.82-4.97) L 10/17/18 04:31 Hgb 8.5 g/dL (11.5-15.4) L 10/17/18 04:31 Hct 26.3 % (35.3-44.9) L 10/17/18 04:31 MCV 101.2 fL (83.0-100.0) H 10/17/18 04:31 RDW 17.5 % (11.5-14.5) H 10/17/18 04:31 Neutrophils # 11.6 K/mcL (1.6-8.9) H 10/16/18 05:00 PT 13.2 Seconds (9.4-12.1) H 10/15/18 10:42 APTT 61.3 Seconds (26.0-36.0) H 10/15/18 10:42 Sodium 132 mEq/L (136-145) L 10/17/18 04:31 Creatinine 0.31 mg/dL (0.60-1.20) L 10/17/18 04:31 BUN/Creatinine Ratio 29 (6-26) H 10/17/18 04:31 Glucose 140 mg/dL (70-105) H 10/17/18 04:31 Calculated Osmolality 275 (280-300) L 10/17/18 04:31 Phosphorus 2.5 mg/dL (2.7-4.5) L 10/15/18 10:42 Alkaline Phosphatase 196 Units/L (34-104) H 10/15/18 10:42 Urine Clarity Cloudy (Clear) A 10/15/18 11:15 Urine Protein 30 mg/dL (Neg-Trace) H 10/15/18 11:15 Urine Bilirubin Small (Negative) H 10/15/18 11:15 Urine Microscopic WBC 5-15 per hpf (0-3) H 10/15/18 11:15 Ur Squamous Epith Cells Many per lpf (None-Few) H 10/15/18 11:15 Urine Bacteria Many per hpf (None-Few) H 10/15/18 11:15 General appearance: Present: mild distress - Respiratory Respiratory exam: Present: decreased breath sounds, respiratory distress, stridor - Cardiovascular Cardiovascular exam: Present: +S1, +S2, tachycardia - GI/Abdominal GI/Abdominal exam: Present: normal bowel sounds, soft - Extremities Exam Extremities exam: Present: normal capillary refill, normal inspection - Neurological Exam Neurological exam: Present: alert, oriented X3, strengths equal and symetr throughout Additional comments: generalized weakness - Skin Skin exam: Present: cyanosis, pallor, warm Palliative Quality Palliative Quality: Screen for Code Status: No (Will eval in am, patient in pain crisis, unable to discuss presently), Screen for Goals of Care: No, Screen for Pain: Yes, If Pain Regimen Started, Initiate Bowel Regimen: Yes, Screen for Nausea/Vomitting: Yes Code Status: 10/15/18 13:57 Resuscitation Status: Active [RES] Routine Comment: Resuscitation Status: Full Code 10/16/18 11:59 CODE [Resuscitation Status: Active] [RES] Routine Comment: Resuscitation Status: [id number] - Labs CBC & Chem 7: 10/17/18 04:31 10/17/18 04:31 Labs: Laboratory Results - last 24 hr 10/17/18 22:25 Lactic Acid 1.4 - Impressions Impressions Head MRI 10/18/18 09:00 IMPRESSION: No abnormal enhancement within the brain to suggest intracranial metastatic disease. Stable minimal chronic microvascular disease within the periventricular white matter. Partially empty sella. D/ / 10/18/2018 09:02:05 Stuart Parkinson MD / [facility] Interpreting Provider: Stuart Parkinson MD Shoulder MRI 10/18/18 09:00 IMPRESSION: 1. Diffuse signal abnormality throughout the majority of the visualized osseous structures consistent with bony metastatic disease. 2. Mild supraspinatus, infraspinatus and subscapularis tendinopathy. Mild edema in the rotator cuff musculature surrounding the scapula likely secondary to bony metastatic lesions and periosteal edema. 3. Mild degenerative changes of the left AC joint. 4. No partial or full thickness rotator cuff tear. D/ / 10/18/2018 09:08:15 Giovanni Doss MD / [facility] Interpreting Provider: Giovanni Doss MD Shoulder MRI 10/18/18 09:00 IMPRESSION: Limited evaluation secondary to significant patient motion artifact on all sequences. Diffuse bony metastatic disease noted. No fractures are seen. Mild tendinosis to the supraspinatus tendon without definite evidence for rotator cuff tear. Mild degenerative changes to the AC joint along with mild narrowing of acromiohumeral interval. Findings could be contributing to impingement symptoms in the appropriate clinical setting. D/ / 10/18/2018 08:59:48 Devonte Avila MD / [facility] Interpreting Provider: Devonte Avila MD - ABG Interpretation ABG results: PT/INR, D-dimer PT 13.2 Seconds (9.4-12.1) H 10/15/18 10:42 Consult Discharge Plan - Plan Referrals: NONE,PCP [Primary Care Provider] -
[2018-10-18] MEDS: Clindamycin 600 MG/50 ML 600 MG/50 ML IV.SOLN IVPB SCH (17:01)
[2018-10-19] MEDS: Clindamycin 600 MG/50 ML 600 MG/50 ML IV.SOLN IVPB SCH ×2 (01:09→07:49)
[2018-10-19] MEDS: *HR* HYDROmorphone (PF) 1 MG/ML SYRINGE IVP PRN ×11 (04:12→22:24)
[2018-10-19] MEDS: Cefepime HCl 2,000 MG in Water for inj. (sterile) 20 ML 20 ML IVP SCH ×2 (06:02→15:22)
[2018-10-19] MEDS: *HR* Heparin 5,000 UNIT/ML VIAL SQ SCH ×2 (06:10→17:20)
[2018-10-19 06:37] LABS: Hematocrit 27.5 % (35.3-44.9); Hemoglobin 8.5 g/dL (11.5-15.4); Mean Corpuscular HGB Conc 30.9 g/dL (31.6-35.5); Mean Corpuscular Hemoglobin 32.4 pg (28.0-33.3); Mean Platelet Volume 9.6 fL (9.4-12.4); Nucleated Red Blood Cells 0.2 /100 WBC (0); Platelet Count 349 K/mcL (140-400); Red Blood Count 2.62 M/mcL (3.82-4.97); Red Cell Distribution Width 18.2 % (11.5-14.5)
[2018-10-19] MEDS: Dexamethasone 4 MG/ML VIAL IVP SCH ×2 (07:49→21:00)
[2018-10-19] MEDS: Pantoprazole 40 MG VIAL IVP SCH (07:49)
[2018-10-19] MEDS: *HR* LORazepam 2 MG/ML VIAL IVP PRN ×4 (07:50→22:25)
[2018-10-19 07:52] LABS: BUN/Creatinine Ratio 26 (6-26); Blood Urea Nitrogen 10 mg/dL (6-20); Carbon Dioxide 27 mEq/L (23-29); Chloride 98 mEq/L (98-107); Glucose 86 mg/dL (70-105); Osmolality,Calculated 274 (280-300); Sodium 133 mEq/L (136-145); eGFR For Non-African Americans > 60 (> 60)
[2018-10-19 08:13] LABS: Neutrophils # 10.3 K/mcL (1.6-8.9)
[2018-10-19 08:17] LABS: Band Neutrophils % 2.5 % (0-4); Basophils # 0.1 K/mcL (0.0-0.2); Basophils % 0.5 %; Lymphocytes # 1.6 K/mcL (0.6-4.6); Lymphocytes % 12.5 %; Monocytes # 0.9 K/mcL (0.0-1.3); Monocytes % 6.5 %
[2018-10-19 08:18] LABS: Platelet Estimate Normal (Normal)
--- NOTE | 2018-10-19 09:48 | Palliative Progress Note ---
Date of Encounter: 10/19/18 Time of Encounter: 09:40 - Assessment and plan (1) Cancer associated pain Current Visit: Yes Status: Acute Assessment and plan: Fentanyl patch was increased to 50mcg yesterday. Continue with Hydromorphone for breakthrough pain, increase frequency to hourly PRN. Utilized x7 last 24 hours (2) Anxiety Current Visit: Yes Status: Acute Assessment and plan: Patient still remains anxious when awake, will increase Lorazepam and monitor effectiveness. (3) Dysphagia Current Visit: Yes Status: Acute Qualifiers: Dysphagia type: oropharyngeal phase Qualified Code(s): R13.12 - Dysphagia, oropharyngeal phase (4) Goals of care, counseling/discussion Current Visit: No Status: Acute Assessment and plan: I have visited patient twice today. She is becoming more confused, cyanotic, and drowsy. I asked her sister odalys bolivar this am to contact son Jonathan, Patient's POA, ([phone]) to come to hospital. Jonathan did arrive and I spoke with him, with pt sister and primary nurse Marianela present for conversation. Son is aware of her situation including her cancer status, vocal cord paralysis, refusal thus far of trach and PEG, and her desire to eat. Discussed at length the risk of po intake, as well as airway issues, ie, spasm could lead to her passing. Son verbalized understanding. He desires to keep her comfortable, and wants to her have food for her comfort and pleasure, fully knowing that she will aspirate what she partakes of and could pass from the consequences. Agreeable to transition to DNR-Comfort Care. Asked that we ensure she is comfortable, and increase her pain medication, as it has not been holding her the full 2 hours. Patient brother and his also in agreement. Updated Dr. Hanna and Jovanna March, Oncology. Possible transition to inpatient hospice over the weekend. (5) Fever of unknown origin Current Visit: Yes Status: Acute (6) Small cell lung cancer Current Visit: Yes Status: Chronic (7) Vocal cord paralysis, bilateral complete Current Visit: Yes Status: Acute Assessment and plan: Patient continues to state that she will not consent for trach today and that she just wants to rest today. Patient and sister odalys bolivar at bedside are fully aware that she could have largyngeal spasm and could cause her . (8) Airway compromise Current Visit: Yes Status: Acute - Time Spent With Patient Total time spent is greater than 50% in coordination of care (as documented) at patient's floor/unit and/or counseling patient: - Subjective Interval history: Patient awake but drowsy this am. She appears dusky. Still states she will not have trach today, but she may decide to do it. States she is just tired and wants to rest. She is making some inappropriate statements at times, however is still alert and oriented to person, place, and situation. Fentanyl patch was increased yesterday for pain management, which could be attributing to her drowsiness. But she does appear and state that her pain is better controlled. - Constitutional Vitals: Abnormal lab results WBC 13.0 K/mcL (4.3-11.1) H 10/19/18 04:40 RBC 2.62 M/mcL (3.82-4.97) L 10/19/18 04:40 Hgb 8.5 g/dL (11.5-15.4) L 10/19/18 04:40 Hct 27.5 % (35.3-44.9) L 10/19/18 04:40 MCV 105.0 fL (83.0-100.0) H 10/19/18 04:40 MCHC 30.9 g/dL (31.6-35.5) L 10/19/18 04:40 RDW 18.2 % (11.5-14.5) H 10/19/18 04:40 Myelocytes % 1.0 % (0) H 10/19/18 04:40 Neutrophils # 10.3 K/mcL (1.6-8.9) H 10/19/18 04:40 Nucleated RBCs/100 WBC 0.2 /100 WBC (0) H 10/19/18 04:40 PT 13.2 Seconds (9.4-12.1) H 10/15/18 10:42 APTT 61.3 Seconds (26.0-36.0) H 10/15/18 10:42 Sodium 133 mEq/L (136-145) L 10/19/18 04:40 Creatinine 0.39 mg/dL (0.60-1.20) L 10/19/18 04:40 Calculated Osmolality 274 (280-300) L 10/19/18 04:40 Phosphorus 2.5 mg/dL (2.7-4.5) L 10/15/18 10:42 Alkaline Phosphatase 196 Units/L (34-104) H 10/15/18 10:42 Urine Clarity Cloudy (Clear) A 10/15/18 11:15 Urine Protein 30 mg/dL (Neg-Trace) H 10/15/18 11:15 Urine Bilirubin Small (Negative) H 10/15/18 11:15 Urine Microscopic WBC 5-15 per hpf (0-3) H 10/15/18 11:15 Ur Squamous Epith Cells Many per lpf (None-Few) H 10/15/18 11:15 Urine Bacteria Many per hpf (None-Few) H 10/15/18 11:15 General appearance: Present: mild distress - Respiratory Additional comments: Stridor with respirations continue. Breath sounds diminished throughout. - GI/Abdominal GI/Abdominal exam: Present: normal bowel sounds, soft - Extremities Exam Extremities exam: Present: normal capillary refill, normal inspection - Neurological Exam Neurological exam: Present: alert, strengths equal and symetr throughout Additional comments: Oriented to name and place. Generalized weakness - Skin Skin exam: Present: cyanosis, dry Palliative Quality Palliative Quality: Screen for Code Status: No (Will eval in am, patient in pain crisis, unable to discuss presently), Screen for Goals of Care: No, Screen for Pain: Yes, If Pain Regimen Started, Initiate Bowel Regimen: Yes, Screen for Nausea/Vomitting: Yes Code Status: 10/15/18 13:57 Resuscitation Status: Active [RES] Routine Comment: Resuscitation Status: Full Code 10/16/18 11:59 CODE [Resuscitation Status: Active] [RES] Routine Comment: Resuscitation Status: [id number] - Labs CBC & Chem 7: 10/19/18 04:40 10/19/18 04:40 Labs: Laboratory Results - last 24 hr 10/19/18 10/19/18 04:40 04:40 WBC 13.0 H RBC 2.62 L Hgb 8.5 L Hct 27.5 L MCV 105.0 H MCH 32.4 MCHC 30.9 L RDW 18.2 H Plt Count 349 MPV 9.6 Seg Neutrophils % 77.0 Band Neutrophils % 2.5 Lymphocytes % 12.5 Monocytes % 6.5 Basophils % 0.5 Myelocytes % 1.0 H Neutrophils # 10.3 H Lymphocytes # 1.6 Monocytes # 0.9 Basophils # 0.1 Nucleated RBCs/100 WBC 0.2 H Platelet Estimate Normal Sodium 133 L Potassium 4.0 Chloride 98 Carbon Dioxide 27 BUN 10 Creatinine 0.39 L Est GFR ( Amer) > 60 Est GFR (Non-Af Amer) > 60 BUN/Creatinine Ratio 26 Glucose 86 Calculated Osmolality 274 L Calcium 9.0 - Impressions Impressions Shoulder MRI 10/18/18 09:00 IMPRESSION: 1. Diffuse signal abnormality throughout the majority of the visualized osseous structures consistent with bony metastatic disease. 2. Mild supraspinatus, infraspinatus and subscapularis tendinopathy. Mild edema in the rotator cuff musculature surrounding the scapula likely secondary to bony metastatic lesions and periosteal edema. 3. Mild degenerative changes of the left AC joint. 4. No partial or full thickness rotator cuff tear. D/ / 10/18/2018 09:08:15 Giovanni Doss MD / [facility] Interpreting Provider: Giovanni Doss MD Shoulder MRI 10/18/18 09:00 IMPRESSION: Limited evaluation secondary to significant patient motion artifact on all sequences. Diffuse bony metastatic disease noted. No fractures are seen. Mild tendinosis to the supraspinatus tendon without definite evidence for rotator cuff tear. Mild degenerative changes to the AC joint along with mild narrowing of acromiohumeral interval. Findings could be contributing to impingement symptoms in the appropriate clinical setting. D/ / 10/18/2018 08:59:48 Devonte Avila MD / [facility] Interpreting Provider: Devonte Avila MD - ABG Interpretation ABG results: PT/INR, D-dimer PT 13.2 Seconds (9.4-12.1) H 10/15/18 10:42 Consult Discharge Plan - Plan Referrals: NONE,PCP [Primary Care Provider] -
--- NOTE | 2018-10-19 12:11 | Oncology Inp Progress Note ---
<Jovanna Baker L - Last Filed: 10/19/18 15:59> Date of Encounter: 10/19/18 Time of Encounter: 11:00 (1) Cancer associated pain Current Visit: Yes Status: Acute Assessment and plan: Palliative following, appreciate recommendations Patient reports widespread bone pain however most significant of her pain is to her pelvic/groin area and right shoulder Pain currently under suboptimal control Plan: Currently on 50 g fentanyl patch Continues to use hydromorphone Q2H PRN for breakthrough Pain under good control currently Patient reports widespread bone pain however most significant of her pain is to her pelvic/groin area and right shoulder Evaluated by Dr. Mccloud with radiation oncology-Radiotherapy unlikely to help her diffuse pain (2) Small cell lung cancer Current Visit: Yes Status: Chronic Assessment and plan: Extensive stage small cell lung cancer. She completed 4 cycles of carboplatin and etoposide with immunotherapy Atezolizumab from cycle 2. She was hospitalized earlier this month and she had the following workup. She had a MRI brain with and without contrast 10/02/2018 was negative for metastasis. Chronic white matter ischemic changes CT neck and chest and abdomen with IV contrast on 10/02/2018 showed thickening of the left aryepiglottic fold. Asymmetric vocal cards with thickening of right vocal cord small hypodensity. CT chest showed unchanged mediastinal bulky adenopathy compared to August 2018. Significant improvement in the liver metastasis. Also diffuse sclerotic metastasis in the skeleton which may indicate treatment response Her mediastinal bulky adenopathy has improved significantly since start of treatment but she still has persistent lymphadenopathy. 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 Patient has further more precedent and life threatening issues complicating her care as detailed in air way compromise section. (3) Airway compromise Current Visit: Yes Status: Acute Assessment and plan: Dysphagia, aspiration and stridor secondary to bilateral vocal cord paralysis Patient understands that airway may be compromised at any time secondary to vocal cord spasm which would result in patients demise She has been given detailed information on options which include emergent tracheostomy placement to prevent airway spasm which would also include PEG tube placement and need for parts counterman care vs. less aggressive approach which would include transitioning to full comfort care and hospice Patient is competent to make this decision and continues to refuse to make any decision on trach/PEG placement but is overall declining trach placement at this time, she wishes for further time to make this decision although knowing that time is very much of the essence. Will continue to follow closely Plan: As discussed above, again verified that patient continues to decline tracheostomy placement, however she has not officially decided to transition into only comfort care Patient continues to beg for food and water from staff and family members. This appears to be patient's main concern and most important goal at this time Discussed with the patient's sister in law that if patient does not wish for tracheostomy placement and that her main goal which would improve her quality of life appears to be that she be allowed to eat and drink at this juncture, then transition to full comfort care would make most sense for her at this time, should she also consent to this Patient's son and JACIEL Castillo is planning to visit her later today and we will discuss this in family meeting further, palliative care updated [id number]---In afternoon rounds with Dr. Fraga, following further discussions with palliative care and patients son/JACIEL Romero, patient has transitioned to full comfort care and plan to transition GIP over weekend. Onocology agrees with this transition. This will allow for maximum comfort measures and for patient to be allowed PO intake as tolerated (patient and family understand risk for aspiration). Patient has voiced on multiple occasions how important eating/drinking is to her quality of life. Patient is currently resting comfortably with family at bedside, patients mother arrived as I was walking out of room. Denies needs at this time. Oncology: Subj Interval history: 1100-Patient resting comfortably, no acute events noted overnight. Patients sister in law at bedside, no other family members present currently. Patient is drowsy and will awaken for short periods of time before asking to please let her go back to sleep. She states she slept well last night. Pain controlled. Currently denies needs. Patients sister in law asked to go into hallway to discuss things privately. She states that patient is ready been seen by palliative care and hospitalist this morning and that she has continued to decline tracheostomy/PEG tube placement. She wishes to stay DNR CCA DNI. However she has not given permission as of yet to transition to full comfort care. She wishes to wait until Monday to make this decision. Staff can have explained that time may be of the essence and that we wish to know her wishes regarding her care. Patient's son Nick remains her POA and is not present. Discussed with [id number] that further discussion needs to take place with Nick present today. She also has another son and daughter that may visit her sometime today as well. - Constitutional General appearance: cooperative, mild distress, no febrile Exam: appears fatigued, drowsy but will arouse to voice, audible noisy inspiratory stridor - Head Head exam: Present: atraumatic - ENT ENT exam: Present: mucous membranes moist, normal oropharynx - Neck Additional comments: enlarged neck veins - Respiratory Respiratory exam: Present: decreased breath sounds Additional comments: upper airway stridor with inspiration - Cardiovascular Cardiovascular exam: Present: RRR - GI/Abdominal GI/Abdominal exam: Present: hypoactive bowel sounds, soft. Absent: tenderness - Extremities Exam Extremities exam: Present: normal inspection. Absent: calf tenderness - Neurological Exam Neurological exam: Present: alert, oriented X3, no focal deficits, strengths equal and symetr throughout - Psychiatric Psychiatric exam: Present: depressed - Skin Skin exam: Present: dry, intact, warm Additional comments: dusky discoloration to face/neck Oncology: Obj Data - Labs CBC & Chem 7: 10/19/18 04:40 10/19/18 04:40 Consult Discharge Plan - Plan Referrals: NONE,PCP [Primary Care Provider] - Inpatient Charges Provider: Dr. Sky Fraga <Jared Fraga - Last Filed: 10/19/18 23:07> Date of Encounter: 10/19/18 Oncology: Obj Data - Labs CBC & Chem 7: 10/19/18 04:40 10/19/18 04:40 Inpatient Charges Provider: Dr. Sky Fraga Follow up - Inpatient: [id number] - Attending Attestation I examined this patient and my medical decision-making was reviewed with the Advanced Practice Nurse. I agree with the documented findings, disposition and treatment plan as described except to the extent set forth below. Ms Youngblood is in a very difficult place with regards to her cancer. She has bilateral vocal cord paralysis and is at risk for aspiration/choking. She has elected against trach/PEG and is pursuing comfort measures and inpatient hospice care. This was affirmed with the patient today as well as family. She is currently comfortable and desires to eat. We encouraged her to eat this evening and enjoy time with her family. We will otherwise sign off.
[2018-10-19] MEDS: D5% in 0.45% NACL 1,000 ML IVC SCH (12:22)
--- NOTE | 2018-10-19 12:39 | Internal Med Progress Note ---
Hospitalist Progress Note - Encounter Date of Encounter: 10/19/18 Time of Encounter: 09:00 - Subjective Interval History: Patient still weak. Cannot have by mouth diet because of failed swallow evaluation and dysphagia. Has stridor. No fever. Mild drowsy possibly due to pain meds, AAO x 3. - Exam Vitals: Temp Pulse Resp BP Pulse Ox 98.1 F 108 20 110/80 98 10/19/18 07:30 10/19/18 07:30 10/19/18 07:30 10/19/18 07:30 10/19/18 07:30 Exam: Pt is AAO x 3, in NAD, cachectic HEENT: NC/AT, PERRL Neck: Supple, JVD with upper body vein varicosis Lungs: CTA b/l, inspiration stridor Heart: S1S2, RRR Abd: Soft, nontender, BS present Ext: ROM wnl, no pedal edema Neuro: No focal deficit - Assessment and Plan (1) Intractable pain Current Visit: Yes Status: Acute Assessment and Plan: Cont pain management. Palliative consult appreciated. (2) Small cell lung cancer Current Visit: Yes Status: Chronic Assessment and Plan: 53 year old female with end stage small cell lung cancer diagnosed about 5 months ago, already undertaken 5 rounds of chemo and immunotherapy, presented with intractable pain, weakness, and disphargia. - With known metastasis to bone, cervical lymph nodes, and liver. Prognosis is poor. - Patient still wants treatment at this point. - Oncology consult appreciated. - PT/OT (3) Dysphagia Current Visit: Yes Status: Acute Assessment and Plan: Failed swallow evaluation. EGD has been done, no stricture/obstruction identified. Patient also has stridor and hoarseness. Highly suspect recurrent laryngeal nerve compression caused by lung cancer. - ENT consult appreciated, patient has worsening and progressive symptoms, may pass away any time due to vocal cord spasm. Patient was recommended to have tracheostomy but she still not decided yet. Patient understands she may have life threatening airway obstruction at any time before she has a tracheostomy. - Patient may need tube feeding, she is considering it but not decided yet. (4) Seizure disorder Current Visit: Yes Status: Chronic Assessment and Plan: Patient has no seizure for several years. Will hold by mouth medication as patient has severe dysphagia and vocal cord palsy. (5) HTN (hypertension) Current Visit: Yes Status: Chronic Assessment and Plan: Hold the by mouth medications. Close monitor BP. IV hydralazine as needed (6) COPD (chronic obstructive pulmonary disease) Current Visit: Yes Status: Chronic Assessment and Plan: No signs of exacerbation. Continue albuterol inhaler when necessary. (7) GERD (gastroesophageal reflux disease) Current Visit: Yes Status: Acute Assessment and Plan: Switch to IV PPI as pt is npo. (8) Aspiration pneumonia Current Visit: Yes Status: Suspected Assessment and Plan: Patient has fever on admission, meet sepsis criteria. Still have leukocytosis. Patient has dysphagia. CT chest shows bibasilar subsegmental atelectasis or pneumonitis with associated small volume bilateral pleural effusion. Suspect aspiration pneumonia. - Place patient on clindamycin and cefepime - Closely monitor patient, keep nothing by mouth at this point. DVT Prophylaxis: Subcutaneous heparin - Time Spent with Patient Total time spent is greater than 50% in coordination of care (as documented) at patient's floor/unit and/or counseling patient: 30 minutes 25 - 35 minutes Plan of Care Discussed with: patient Internal Medicine: Result - Labs CBC & Chem 7: 10/19/18 04:40 10/19/18 04:40 Labs: Short CBC 10/19/18 Range/Units 04:40 WBC 13.0 H (4.3-11.1) K/mcL Hgb 8.5 L (11.5-15.4) g/dL Hct 27.5 L (35.3-44.9) % Plt Count 349 (140-400) K/mcL Neutrophils # 10.3 H (1.6-8.9) K/mcL BMP 10/19/18 04:40 Sodium 133 L Potassium 4.0 Chloride 98 Carbon Dioxide 27 BUN 10 Creatinine 0.39 L Glucose 86 Calcium 9.0 - ABG Interpretation ABG results: PT/INR, D-dimer PT 13.2 Seconds (9.4-12.1) H 10/15/18 10:42 - Impressions Impressions Shoulder MRI 10/18/18 09:00 IMPRESSION: 1. Diffuse signal abnormality throughout the majority of the visualized osseous structures consistent with bony metastatic disease. 2. Mild supraspinatus, infraspinatus and subscapularis tendinopathy. Mild edema in the rotator cuff musculature surrounding the scapula likely secondary to bony metastatic lesions and periosteal edema. 3. Mild degenerative changes of the left AC joint. 4. No partial or full thickness rotator cuff tear. D/ / 10/18/2018 09:08:15 Giovanni Doss MD / liz Interpreting Provider: Giovanni Doss MD Consult Discharge Plan - Plan Referrals: NONE,PCP [Primary Care Provider] - (3) Dysphagia Qualifiers: Dysphagia type: oropharyngeal phase Qualified Code(s): R13.12 - Dysphagia, oropharyngeal phase (5) HTN (hypertension) Qualifiers: Hypertension type: essential hypertension Qualified Code(s): I10 - Essential (primary) hypertension (6) COPD (chronic obstructive pulmonary disease) Qualifiers: COPD type: unspecified COPD Qualified Code(s): J44.9 - Chronic obstructive pulmonary disease, unspecified (7) GERD (gastroesophageal reflux disease) Qualifiers: Esophagitis presence: esophagitis presence not specified Qualified Code(s): K21.9 - Gastro-esophageal reflux disease without esophagitis (8) Aspiration pneumonia Qualifiers: Aspiration pneumonia type: unspecified Laterality: bilateral Lung location: lower lobe of lung Qualified Code(s): J69.0 - Pneumonitis due to inhalation of food and vomit
[2018-10-19] MEDS ORDERED: Acetaminophen 325 MG TABLET PO ONE (23:47)
[2018-10-20] MEDS ORDERED: diazePAM 10 MG/2 ML SYRINGE IVP STA (00:06)
[2018-10-20] MEDS: D5% in 0.45% NACL 1,000 ML IVC SCH (00:50)
[2018-10-20] MEDS: *HR* HYDROmorphone (PF) 1 MG/ML SYRINGE IVP PRN ×4 (02:15→08:40)
[2018-10-20] MEDS: *HR* Heparin 5,000 UNIT/ML VIAL SQ SCH (06:58)
[2018-10-20 07:27] VITALS: BP 119/78
[2018-10-20] MEDS: Dexamethasone 4 MG/ML VIAL IVP SCH (08:41)
[2018-10-20] MEDS: Pantoprazole 40 MG VIAL IVP SCH (08:41)
[2018-10-20] MEDS ORDERED: *HR* HYDROmorphone 20 MG/20 ML PCA IVC PRN (10:31)
[2018-10-20] MEDS ORDERED: Naloxone 0.4 MG/ML INJ IVP PRN (10:31)
[2018-10-20] MEDS: *HR* LORazepam 2 MG/ML VIAL IVP PRN (10:53)
--- NOTE | 2018-10-20 11:17 | Internal Med Progress Note ---
Hospitalist Progress Note - Encounter Date of Encounter: 10/20/18 Time of Encounter: 09:00 - Subjective Interval History: Patient still weak. Pleasant with resuming diet. Awake, alert but occasionally confused. on comfort care only per pt and family's wishes. - Exam Vitals: Temp Pulse Resp BP Pulse Ox 97.7 F 107 18 119/78 100 10/20/18 07:22 10/20/18 07:22 10/20/18 07:22 10/20/18 07:22 10/20/18 07:22 Exam: Pt is AAO x 3, in NAD, cachectic HEENT: NC/AT, PERRL Neck: Supple, JVD with upper body vein varicosis Lungs: CTA b/l, inspiration and expiratory stridor Heart: S1S2, RRR Abd: Soft, nontender, BS present Ext: ROM wnl, no pedal edema Neuro: No focal deficit - Assessment and Plan (1) Intractable pain Current Visit: Yes Status: Acute Assessment and Plan: Cont pain management. Palliative consult appreciated. (2) Small cell lung cancer Current Visit: Yes Status: Chronic Assessment and Plan: 53 year old female with end stage small cell lung cancer diagnosed about 5 months ago. - Appreciated oncology consult. - Pt and family decide to pursue hospice and comfort care only now, palliative care consult on case and input is appreciated. (3) Dysphagia Current Visit: Yes Status: Acute Assessment and Plan: Pt will pursue comfort care only, will resume diet for comfort and pleasant purpose. (4) Seizure disorder Current Visit: Yes Status: Chronic Assessment and Plan: Patient has no seizure for several years. (5) HTN (hypertension) Current Visit: Yes Status: Chronic Assessment and Plan: Hold the by mouth medications. Close monitor BP. IV hydralazine as needed (6) COPD (chronic obstructive pulmonary disease) Current Visit: Yes Status: Chronic Assessment and Plan: No signs of exacerbation. Continue albuterol inhaler when necessary. (7) Aspiration pneumonia Current Visit: Yes Status: Suspected Assessment and Plan: Will hold abx as code status has been changed to DNRCC and pt decide pursue comfort care only. - Time Spent with Patient Total time spent is greater than 50% in coordination of care (as documented) at patient's floor/unit and/or counseling patient: Internal Medicine: Result - Labs CBC & Chem 7: 10/19/18 04:40 10/19/18 04:40 - ABG Interpretation ABG results: PT/INR, D-dimer PT 13.2 Seconds (9.4-12.1) H 10/15/18 10:42 Consult Discharge Plan - Plan Referrals: NONE,PCP [Primary Care Provider] - (3) Dysphagia Qualifiers: Dysphagia type: oropharyngeal phase Qualified Code(s): R13.12 - Dysphagia, oropharyngeal phase (5) HTN (hypertension) Qualifiers: Hypertension type: essential hypertension Qualified Code(s): I10 - Essential (primary) hypertension (6) COPD (chronic obstructive pulmonary disease) Qualifiers: COPD type: unspecified COPD Qualified Code(s): J44.9 - Chronic obstructive pulmonary disease, unspecified (7) Aspiration pneumonia Qualifiers: Aspiration pneumonia type: unspecified Laterality: bilateral Lung location: lower lobe of lung Qualified Code(s): J69.0 - Pneumonitis due to inhalation of food and vomit
--- NOTE | 2018-10-20 13:09 | Discharge Summary ---
Orders not resulted at time of discharge: Pending orders 10/15/18 21:20 Culture,Blood [BC] Stat Date of Encounter: 10/20/18 Time of Encounter: 11:00 - Discharge Diagnosis (1) Intractable pain Priority: Primary Status: Acute (2) Small cell lung cancer Priority: Primary Status: Chronic (3) Dysphagia Priority: Primary Status: Acute Qualifiers: Dysphagia type: oropharyngeal phase Qualified Code(s): R13.12 - Dysphagia, oropharyngeal phase (4) Seizure disorder Priority: Secondary Status: Chronic (5) HTN (hypertension) Priority: Secondary Status: Chronic Qualifiers: Hypertension type: essential hypertension Qualified Code(s): I10 - Essential (primary) hypertension (6) COPD (chronic obstructive pulmonary disease) Priority: Secondary Status: Chronic Qualifiers: COPD type: unspecified COPD Qualified Code(s): J44.9 - Chronic obstructive pulmonary disease, unspecified (7) Aspiration pneumonia Priority: Primary Status: Suspected Qualifiers: Aspiration pneumonia type: unspecified Laterality: bilateral Lung location: lower lobe of lung Qualified Code(s): J69.0 - Pneumonitis due to inhalation of food and vomit Hospital course: Ms. Youngblood is a 53 year old female present to ER for severe hip pain due to cancer metastasis. Patient was also found leukocytosis with fever. She was treated with antibiotics. Patient has dysphagia, failed swallow evaluation. ENT consult saw patient, patient has bilateral vocal palsy. ENT recommend stat tracheostomy. Patient need both tracheostomy and PEG tube. Patient has end- stage small cell lung cancer with liver and bone metastasis. Palliative care consult saw patient. After discussed with family, patient decided to pursue hospice and declined further procedures. Will DC patient to inpatient hospice. I have seen and examined the patient today. Patient is awake alert, pleasant with restarting diet. Occasionally confusion. Vitals generally stable. Will DC patient to inpatient hospice for comfort care. Discharge discussed with: patient, family - Time Spent with Patient Total time spent providing and/or coordinating discharge services: 25 min Less than 30 minutes - Discharge Medications Home Medications: Loratadine [Claritin] 10 mg PO DAILY 10/25/15 [History] Acetaminophen [Tylenol] 1,000 mg PO Q6H PRN 07/21/18 [History] Albuterol Neb [AccuNeb] 0.63 mg IH BID PRN 07/21/18 [History] Albuterol Sulfate [Proair Hfa] 2 puff IH Q4H PRN 07/21/18 [History] Cyclobenzaprine [Flexeril] 10 mg PO DAILY PRN 07/21/18 [History] Prochlorperazine Maleate 10 mg PO Q6H PRN 07/21/18 [History] raNITIdine HCl [Zantac] 150 mg PO 0730,1630 07/21/18 [History] Amitriptyline [Elavil] 10 mg PO HS 08/30/18 [History] Gabapentin [Neurontin] 600 mg PO TID 08/30/18 [History] Magic Mouthwash [Magic Mouthwash BLM] 10 ml PO QID PRN #240 ml 09/25/18 [Rx] Docusate Sodium [Dok] 100 mg PO DAILY 10/02/18 [History] Guaifenesin [Mucinex] 600 mg PO BID 10/02/18 [History] Omeprazole [PriLOSEC] 20 mg PO DAILY@0730 10/02/18 [History] Ondansetron HCl [Zofran] 4 mg PO Q6H PRN 10/02/18 [History] Oxycodone HCl 15 mg PO TID PRN 10/02/18 [History] Primidone [Mysoline] 50 mg PO BID 10/02/18 [History] Dronabinol [Marinol] 1 tab PO BID 30 Days #60 capsule 10/10/18 [Rx] Lidocaine/Prilocaine [Emla] 1 appl TP AD PRN 10/15/18 [History] Allergies/Adverse Reactions: Allergy/AdvReac Type Severity Reaction Status Date / Time Penicillins Allergy Anaphylaxis Verified 10/10/18 10:30 atenolol AdvReac Cough Verified 10/10/18 10:30 bupropion [From Wellbutrin] AdvReac Nightmare Verified 10/10/18 10:30 cephalexin [From Keflex] AdvReac Diarrhea Verified 10/10/18 10:30 diphenhydramine AdvReac Insomnia Verified 10/15/18 14:54 [From Benadryl] metronidazole [From Flagyl] AdvReac Diarrhea Verified 10/10/18 10:30 Date of admission: 10/18/18 16:03 Primary care physician: PCP NONE Consults: 10/15/18 14:07 Consult to Palliative Care [CONS] Routine Comment: Consulting Provider: [facility] Reason for Consult: goal of care Call Completed: Yes 10/15/18 14:08 Consult to Oncology Hematology [CONS] Routine Consulting Provider: Jovanna Baker Reason for Consult: small cell lung cancer Call Completed: Yes 10/15/18 14:23 Consult to Speech Therapy [CONS] Routine Comment: Evaluate, develop and implement POC Reason for Consult: aspiration and dysphargia Call Completed: Yes 10/15/18 14:25 PT [Consult to Physical Therapy] [CONS] Routine Comment: Evaluate, develop and implement POC Reason for Consult: dc planning Does patient have active BEDREST order?: No Is patient medically & hemodynamically stable?: Yes Patient assessed for mobility or mobilized this visit?: Yes 10/15/18 14:26 OT [Consult to Occupational Therapy] [CONS] Routine Comment: Evaluate, develop and implement POC Reason for Consult: dc planning Does patient have active BEDREST order?: No Is patient medically & hemodynamically stable?: Yes Patient assessed for mobility or mobilized this visit?: Yes 10/15/18 16:02 Consult to Nutrition [CONS] Routine Comment: Consulting Provider: NUTRITION Reason for Dietary Consult: Diet Education 10/16/18 15:13 Consult to Gastroenterology [CONS] Routine Consulting Provider: [facility] [place] Reason for Consult: h/o esophageal strictures, dysphagia, stridor, failed MBS Call Completed: Yes 10/17/18 09:32 Consult to Radiation Oncology [Consult to Oncology Radiation] [CONS] Routine Consulting Provider: [facility] [place] Reason for Consult: painful bone mets to bilateral femoral necks Call Completed: Yes 10/18/18 08:31 Consult to Pastoral Services [CONS] Routine Comment: end stage cancer, "I want to live" 10/18/18 10:28 Consult to ENT [CONS] Routine Consulting Provider: ENT [place] Reason for Consult: SCLC pt developped stridor and dysphagia Call Completed: Yes Discharging clinician: Chin Hanna Anticipated date of discharge: 10/20/18 - Constitutional Vitals: Temp Pulse Resp BP Pulse Ox 97.7 F 107 18 119/78 100 10/20/18 07:22 10/20/18 07:22 10/20/18 07:22 10/20/18 07:22 10/20/18 07:22 General appearance: Present: cooperative, A&O X 3, answers questions appropriately Exam: Pt is AAO x 3, in NAD, cachectic HEENT: NC/AT, PERRL Neck: Supple, JVD with upper body vein varicosis Lungs: CTA b/l, inspiration and expiratory stridor Heart: S1S2, RRR Abd: Soft, nontender, BS present Ext: ROM wnl, no pedal edema Neuro: No focal deficit - Patient Status Disposition: Hospice - Medical Facility Condition: Serious Overall status at discharge: patient is not back to baseline - Discharge Instructions Follow Up With: NONE,PCP [Primary Care Provider] -
--- NOTE | 2018-10-20 14:12 | Palliative Progress Note ---
Date of Encounter: 10/20/18 Time of Encounter: 10:00 - Assessment and plan (1) Small cell lung cancer Current Visit: Yes Status: Chronic (2) Cancer associated pain Current Visit: Yes Status: Acute Assessment and plan: Patient reports pain controlled more today than yesterday. Fentanyl [address] 10 doses of Dilaudid in the last 24 hours. Changed Dilaudid to LEATHERSMITH. (3) Dysphagia Current Visit: Yes Status: Acute Assessment and plan: Patient unable to keep down Oral fluids. Desires to continue to eat/drink. Qualifiers: Dysphagia type: oropharyngeal phase Qualified Code(s): R13.12 - Dysphagia, oropharyngeal phase (4) Vocal cord paralysis, bilateral complete Current Visit: Yes Status: Acute Assessment and plan: Patient reports she will not have Trach. Wants to be kept comfortable. (5) Goals of care, counseling/discussion Current Visit: No Status: Acute Assessment and plan: I have visited patient 3 visits today. Upon arrival initially, discussed potential of transition to [facility], patient was initially hesitant then agreeable. Discussed improved pain control with LEATHERSMITH, patient agreeable. On repeat visit, reports improved control. Requested Sister Celina call patient's son Jonathan to request what time he would be visiting for Hospice nurse to enroll patient in hospice. Upon return to room, Jonathan already present at bedside. Called and notified Hospice Nurse Osman, whom reports she will not be able to come to hospital until 530 pm. Explained to patient's son Jonathan, agreeable, as he is already planning to stay the night. Requested Discharge order from Dr. Hanna, whom agreed. Obtained new account number. New orders placed. Patient to enroll in hospice at 530 pm. - Time Spent With Patient Total time spent is greater than 50% in coordination of care (as documented) at patient's floor/unit and/or counseling patient: - Subjective Interval history: Patient sitting up at bedside upon arrival for assessment. Patient's sister and daughter present at bedside. Patient continues to appear dusky. Explained desire to remain comfortable and no trach. Patient drinking orange juice on assessment, unable to keep down. Patient reports pain has decreased from a 9/10 to an 8/10 with Fentanyl patch and Dilaudid pushes (10 doses in the last 24 hours). Patient is alert and oriented times 4. Patient reports continued Anxiety, has taken 2 doses of Ativan in the last 24 hours. Patient denies nausea. Stridor remains evident. - Constitutional Vitals: Abnormal lab results WBC 13.0 K/mcL (4.3-11.1) H 10/19/18 04:40 RBC 2.62 M/mcL (3.82-4.97) L 10/19/18 04:40 Hgb 8.5 g/dL (11.5-15.4) L 10/19/18 04:40 Hct 27.5 % (35.3-44.9) L 10/19/18 04:40 MCV 105.0 fL (83.0-100.0) H 10/19/18 04:40 MCHC 30.9 g/dL (31.6-35.5) L 10/19/18 04:40 RDW 18.2 % (11.5-14.5) H 10/19/18 04:40 Myelocytes % 1.0 % (0) H 10/19/18 04:40 Neutrophils # 10.3 K/mcL (1.6-8.9) H 10/19/18 04:40 Nucleated RBCs/100 WBC 0.2 /100 WBC (0) H 10/19/18 04:40 PT 13.2 Seconds (9.4-12.1) H 10/15/18 10:42 APTT 61.3 Seconds (26.0-36.0) H 10/15/18 10:42 Sodium 133 mEq/L (136-145) L 10/19/18 04:40 Creatinine 0.39 mg/dL (0.60-1.20) L 10/19/18 04:40 Calculated Osmolality 274 (280-300) L 10/19/18 04:40 Phosphorus 2.5 mg/dL (2.7-4.5) L 10/15/18 10:42 Alkaline Phosphatase 196 Units/L (34-104) H 10/15/18 10:42 Urine Clarity Cloudy (Clear) A 10/15/18 11:15 Urine Protein 30 mg/dL (Neg-Trace) H 10/15/18 11:15 Urine Bilirubin Small (Negative) H 10/15/18 11:15 Urine Microscopic WBC 5-15 per hpf (0-3) H 10/15/18 11:15 Ur Squamous Epith Cells Many per lpf (None-Few) H 10/15/18 11:15 Urine Bacteria Many per hpf (None-Few) H 10/15/18 11:15 General appearance: Present: cooperative, mild distress - Head Head exam: Present: atraumatic, normal inspection - Eye Eye exam: Present: PERRL. Absent: periorbital swelling, periorbital tenderness Pupils: Present: normal accommodation, PERRL - ENT ENT exam: Present: mucous membranes moist, normal external ear exam - Neck Neck exam: Present: full ROM, normal inspection - Respiratory Respiratory exam: Present: accessory muscle use, respiratory distress, stridor, wheezes, tachypnea - Cardiovascular Cardiovascular exam: Present: +S1, +S2 - GI/Abdominal GI/Abdominal exam: Present: hyperactive bowel sounds, soft. Absent: tenderness - Rectal Rectal exam: Present: deferred - Extremities Exam Extremities exam: Present: normal inspection. Absent: pedal edema - Back Exam Back exam: Present: normal inspection - Neurological Exam Neurological exam: Present: alert, oriented X3, strengths equal and symetr throughout. Absent: altered, facial droop, speech deficit - Psychiatric Psychiatric exam: Present: anxious - Skin Skin exam: Present: intact, pallor, warm Palliative Quality Palliative Quality: Screen for Code Status: Yes, Screen for Goals of Care: Yes, Screen for Pain: Yes, If Pain Regimen Started, Initiate Bowel Regimen: Yes, Screen for Nausea/Vomitting: Yes Code Status: 10/15/18 13:57 Resuscitation Status: Active [RES] Routine Comment: Resuscitation Status: Full Code 10/16/18 11:59 CODE [Resuscitation Status: Active] [RES] Routine Comment: Resuscitation Status: [id number] 10/19/18 15:33 DNR [Resuscitation Status: Active] [RES] Routine Comment: Resuscitation Status: DNR-Comfort Care - Labs CBC & Chem 7: 10/19/18 04:40 10/19/18 04:40 - ABG Interpretation ABG results: PT/INR, D-dimer PT 13.2 Seconds (9.4-12.1) H 10/15/18 10:42 Palliative Scale - Palliative Performance Scale How ambulatory is this patient?: Mainly sit / lie What is patient's level of activity and evidence of disease?: Unable normal job/work, Significant disease How much self-care assistance does patient require?: Occasional assistance necessary How much oral intake does the patient have?: Minimal to sips What is this patient's level of consciousness?: Full or confusion Palliative Performance Score: 60 % Consult Discharge Plan - Plan Referrals: NONE,PCP [Primary Care Provider] -
[2018-10-20] MEDS ORDERED: *HR* LORazepam 2 MG/ML VIAL IVP PRN (15:02)
== END 2018-10-20 14:21 | disposition hospice, inpatient (51) | DRG 720 ==
LOC: 2ANU 10:34 → EMEROOARM 10:34 → SUATTDRO 13:54 → 2ANU 14:43
PROVIDERS: ADMIT Internal Medicine; ATTEND Internal Medicine